=== PATIENT | male | born 1965 | race Caucasian/White ===

== ENCOUNTER 2021-05-22 14:25 | Inpatient (IN) | payer SELFPAY ==
[2021-05-22] VITALS (49 sets, daily range): BP systolic 101–141; BP diastolic 58–86; PULSE 58–90; RESP 12–29; TEMP 36.6–36.7; O2SAT 88–99; BMI 29.8
--- NOTE | 2021-05-22 14:32 | XACV_ITS ---
Gender: Male : 1965 Exam Priority: Routine Procedure(s): Procedure Description: Diagnostic procedure Procedure Description: Coronary angiogram Procedure Description: Percutaneous coronary intervention Diagnostic Cath Status: Emergency Diagnostic Findings * Left Main has no significant disease. * Left Anterior Descending has minor luminal irregularities minor luminal irregularities. * Circumflex has no significant disease. * Mid Right Coronary Artery: subtotal thrombotic occlusion, JOELLEN: 2 flow. This is the culprit vessel for the acute ST elevation ND.. * Indication: 56-year-old man who presented with acute inferior wall ST elevation ND. Taken emergently to the Motor Vehicle Technician for coronary angiogram. * Ramus artery is a medium-sized vessel and has proximal 30 to 40% stenosis. * Coronary angiography shows right dominance. PCI Status: Emergency PCI Indication: STEMI - Immediate PCI for STEMI Interventional Findings * Procedure detail: We engaged RCA with JR4 guide catheter. IV heparin was used to maintain an ACT above 250 seconds. 0.014 run-through guidewire was used to cross the thrombotic lesion and was put in distal vessel. V output 3.5 x 22 mm resolute Shari drug-eluting stent in the mid RCA. At this time final angiogram was performed that showed excellent stent expansion, no residual stenosis and JOELLEN-3 flow. Patient left the Motor Vehicle Technician in a stable condition. * Mid Right Coronary Artery: 99% stenosis treated with a MDT R SHARI 3.5X22 BRADEN. 0% residual stenosis, JOELLEN: 3 flow. Conclusions 1. There is subtotal thrombotic occlusion of mid RCA that was the culprit vessel for inferior ST elevation ND.. 2. Mid Right Coronary Artery was treated with a Drug Eluting Stent. Recommendations * Transfer to ICU. * Aspirin and Plavix for at least 1 year. * High intensity statin therapy. * Beta-wade therapy. * Outpatient cardiology follow-up in 4 weeks. Interventional RX Recommendation: PCI w/o planned CABG Diagnostic RX Recommendation: PCI w/o planned CABG Anticoagulation: Heparin Pressures Phase:Rest AO : 173 / 86 ( 108 ) @ 12:47:00 PM 125 / 101 ( 114 ) @ 12:48:00 PM 109 / 87 ( 99 ) @ 12:54:00 PM 116 / 84 ( 101 ) @ 1:00:00 PM Clinical Evaluation EBL: 5mL-10mL Procedural Details Procedure Consent Obtained. Pre-Procedure Time Out. Identified patient by full name and date of as verbalized by the patient/guarantor. Does the consent match the physician's order: N/A Emergent. Accurate & Complete Informed Consent: N/A Emergent. Inpatient/Outpatient History & Physical on Chart: N/A Emergent. If H&P is completed, is and addenduem needed: N/A Emergent; If yes, is the addendum complete: N/A Emergent. Visualize and Verify Site with Patient/Guarantor: N/A. Relevant Radiology Images available: N/A Emergent. Pre-op teaching completed and patient verbalized understanding. The risks, benefits, and alternatives of sedation and/or procedure were discussed by physician. The patient agrees to continue. Procedure started. [facility] Clinical Fraility Score: 3: Managing Well. Motor Vehicle Technician Indications: ACS <= 24 hours. Chest Pain Symptom Assessment: Typical Angina Symptoms. Correct patient, site and procedure confirmed by cath team. Current diagnosis: STEMI. PERRLA. Strong, equal hand industrial maintenance manager bilaterally. Lungs clear x 5 lobes. Physician arrived. right groin was prepped with chloroprep then draped in the usual sterile fashion. right radial was prepped with chloroprep then draped in the usual sterile fashion. Oxygen started at 2liters/min via nasal canula. Physician scrubbed in. Immediate Pre-Procedure Time Out. Correct Patient: Yes; Correct Procedure: Yes; Correct Site: Yes; Correct Patient Position: Yes; Correct Supplies: Yes; Dried Flammable Prep: Yes; Blood Products Available: N/A. Lidocaine 1% infiltrated to the right radial. Arterial access obtained. Anne Naik RN nurse predictive maintenance specialist during procedure. 6 armenian JR 4 guide catheter was inserted over the wire. Runthrough guidewire was advanced through the guide catheter to lesion in the mid RCA. AP pads applied to pt chest. Stent inserted to lesion in the mid LAD. Inflation Number : 1 Tena Duran SHARI 3.5X22 BRADEN -Lot Number# [id number] Exp 09/13/2022_ was prepped and advanced across the Mid RCA1. The stent was deployed at 14 YUE for 0:25 seconds. Stent balloon out over wire. Results checked. ACT drawn. Results 227 seconds. Therapeutic limits - pre-heparin administration 90-150 seconds and monitoring heparin during a vascular procedure >250 seconds. Wire out. Results checked. Results checked. A 5 armenian TIG catheter in over wire. Multiple views taken of left coronary artery. Catheter removed over the exchange wire. A TR Band was successful obtaining hemostatsis at the Right Radial artery insertion site. PERRLA. Strong, equal hand industrial maintenance manager bilaterally. No VTE prophylaxis required. Medication's Wasted: Lidocaine 1% = 18 mL. Medication's Wasted: Nitro = 49.5 mg. Medication's Wasted: Heparin = 4000 u. Total IV fluids: 100 mL. PCI Indication: STEMI. Post-op diagnosis: STEMI, Occlusion of Mid RCA. Complications: none. Estimated blood loss: 5mL-10mL. Procedure completed. Patient transferred by wheelchair to ICU. Vital chart was stopped. Access Site Site: Right Radial artery Sheath Size: 6 Fr Hemostasis Method: TR Band Hemostasis Success: Successful Procedure Medications Start: 2:45 PM Stop: 2:45 PM Medication: Versed Amount: 1 mg Route: I.V. Start: 2:45 PM Stop: 2:45 PM Medication: Fentanyl Amount: 50 mcg Start: 2:46 PM Stop: 2:46 PM Medication: Nitrogylcerin Amount: 100 mcg Start: 2:47 PM Stop: 2:47 PM Medication: Versed Amount: 1 mg Route: I.V. Start: 2:47 PM Stop: 2:47 PM Medication: Heparin Amount: 5000 units Route: I.V. Start: 2:51 PM Stop: 2:51 PM Medication: Fentanyl Amount: 50 mcg Route: I.V. Start: 2:56 PM Stop: 2:56 PM Medication: Nitrogylcerin Amount: 200 mcg Route: I.C. Start: 2:59 PM Stop: 2:59 PM Medication: Cardene Amount: 250 mcg Route: I.C. Start: 3:00 PM Stop: 3:00 PM Medication: Aggrastat 12.5 mg/250 mL Amount: 42 ml Route: I.V. bolus Start: 3:00 PM Stop: 3:00 PM Medication: Aggrastat 12.5 mg/250 mL Amount: 15.1 ml/hr Route: I.V. drip Start: 3:02 PM Stop: 3:02 PM Medication: Heparin Amount: 2000 units Route: I.V. Start: 3:04 PM Stop: 3:04 PM Medication: Nitrogylcerin Amount: 200 mcg Route: I.A. Start: 3:04 PM Stop: 3:04 PM Medication: Cardene Amount: 200 mcg Route: I.C. Start: 3:06 PM Stop: 3:06 PM Medication: Fentanyl Amount: 50 mcg Route: I.V. I, the attending physician, have reviewed and verified all procedure medications. Yes, all medications given per verbal order Report Signatures Finalized by Hermelindo Zhao MD on 06/06/2021 09:27 AM
[2021-05-22] MEDS: heparin 5,000 unit/mL INJ 1 mL 4000 UNIT IVP (14:34)
[2021-05-22] MEDS: clopidogrel 300 mg Tablet 600 MG PO (14:34)
--- NOTE | 2021-05-22 14:35 | ECG_ITS ---
[facility] Test Date: 2021-05-22 Pat Name: Matthew Encinas Department: Room: ICU07 Gender: Male Aerial Photograph Interpreter: : 1965 Requested By: Matthew Suárez Order Number: [id number] Mayco MD: Mandi Ortiz M.D. Measurements Intervals [place] Rate: 75 P: 59 FL: 133 QRS: 68 QRSD: 90 T: 74 QT: 377 QTc: 424 Interpretive Statements SINUS RHYTHM WITH SINUS ARRHYTHMIA MARKED ST ELEVATION, CONSIDER INFERIOR INJURY [MARKED ST ELEVATION W/O NORMALLY INFLECTED T-WAVE IN II/aVF] with a lateral extension ST depressions in the high lateral leads, suggesting ischemia ACUTE VT No previous ECG available for comparison Electronically Signed On 05-22-2021 20:05:42 FIELD CONTACT PERSON by Mandi Ortiz M.D. [id number]
--- NOTE | 2021-05-22 14:36 | PM.HP ---
Providers/Chief Complaint Admitting Physician: Hermelindo Zhao MD/ Cardiology Chief Complaint: STEMI History of Present Illness Matthew Encinas is a 56 year old male with no significant past cardiac history presented with 45 minutes to an hour of chest pain symptoms. Chest pain was substernal radiating to both arms. Arms also felt numb. He was diaphoretic with it. EKG performed by EMS showed ST elevation SC of inferior leads. Nursing Agency Manager was activated and was emergently taken to the Nursing Agency Manager which showed acute thrombotic subtotal occlusion of mid RCA which was treated with BRADEN x1. Patient tolerated the procedure well and was transferred to the ICU Review of Systems Narrative: CONSTITUTIONAL: No fever chills weight loss or gain or night sweats. [] HEENT: Normocephalic, atraumatic.[] RESPIRATORY: No cough, sputum, hemoptysis or wheezing.[] CARDIOVASCULAR: Has chest pain, no PND, orthopnea, lower extremity edema, presyncope or syncope. [] GI: no nausea vomiting diarrhea. [] ADULT EDUCATION PROFESSIONAL: No numbness, tingling, weakness or loss of function in any part of the body. [] MUSCULOSKELETAL: No knee or joint pain or rashes. [] Medications/Allergies Home Medications Medication Instructions Recorded Confirmed Last Taken Type pantoprazole 40 mg tablet,delayed 40 mg PO DAILY 08/28/19 08/28/19 Unknown History release Allergies Allergy/AdvReac Type Severity Reaction Status Date / Time prednisone Allergy Severe K+ dropped Verified 08/28/19 12:34 to 2.5. PFSH Acute PFSH: Medical History (Updated 05/23/21 @ 07:56 by Hermelindo Zhao M.D) H/O: GI bleed Social History (Updated 05/23/21 @ 07:55 by Hermelindo Zhao M.D) Smoking and tobacco status: current every day smoker Vitals/I&O/Wt Last Vital Signs Temp 98.0 F 05/22/21 14:27 Pulse 74 05/22/21 14:27 Resp 15 05/22/21 14:27 BP 136/86 05/22/21 14:27 Pulse Ox 99 05/22/21 14:27 Weight last 48 hrs Weight 185 lb Physical Exam Narrative: EXAM NARRATIVE: GENERAL: Patient is alert, awake and oriented x3. [] NECK: No jugular vein distension. [] HEENT: No cyanosis. No icterus. No pallor. [] HEART: Regular S1 and S2. No murmur, rub or gallop. [] LUNGS: Clear to auscultate bilaterally. [] ABDOMEN: Soft, nontender and nondistended. Positive bowel sounds. No guarding, rebound or tenderness. [] CENTRAL NERVOUS SYSTEM: Grossly nonfocal. [] EXTREMITIES: Lower extremities with no edema bilaterally. Pulses palpable in the lower extremities, both dorsalis pedis and posterior tibial. [] Data : 05/23/21 03:43 05/23/21 03:43 A&P Assessment and plan (1) STEMI (ST elevation myocardial infarction): Status: Acute (2) Tobacco abuse: Status: Acute Patient has presented with acute ST elevation SC of inferior wall. Underwent successful revascularization of RCA with BRADEN x1. Transfer to ICU. Aspirin and Plavix for at least 1 year. High intensity statin therapy. We will start metoprolol and lisinopril. Order echocardiogram. Attestations Medical Necessity Statement*: Care expected to cross 2 midnights. Patient had presented with acute ST elevation SC and underwent successful revascularization of RCA with BRADEN x1. Coding Level of Care Code Acute Cash Management Clerk for [facility] Diagnoses STEMI (ST elevation myocardial infarction) I21.3 Tobacco abuse Z72.0
--- NOTE | 2021-05-22 14:49 | ED_ITS ---
HPI - Chest Pain General: Chief Complaint: Chest Pain Stated Complaint: STEMI History of Present Illness: HPI narrative: 56-year-old male presents emergency room complaining of chest pain that began approximately 1 hour prior to arrival. Patient arrived via EMS bed texted a picture of his EKG and prior and had called a STEMI alert on arrival he is still having chest pain he is diaphoretic and weak. Repeat EKG confirms inferior ST elevation [place]. Patient has no known history of coronary artery disease no significant family history, he has no family history of hypertension diabetes or hyperlipidemia. Pain radiates into his neck or arms and he is dyspneic. He denies any episodes of chest pain prior to today's. MD complaint: chest pain and chest heaviness Onset (ago): hour(s) (1) Timing of current episode: constant Prior episodes: No Onset: during rest Pain location: substernal Pain radiation: right arm, left arm and neck Severity: severe Quality: tightness and aching Relieving factors: nothing Exacerbating factors: nothing Associated symptoms: Reports diaphoresis and dyspnea; Deny abdominal pain, fever(s), leg edema, nausea, palpitations, sense of impending doom, syncope or vomiting Treatment prior to arrival: aspirin and oxygen Review of Systems Const: Reports: diaphoresis; Denies: fever(s) ENMT: Denies: throat pain, ear or mastoid pain, nasal discharge or nasal congestion Card: Denies: palpitations or syncope Resp: Reports: dyspnea GI: Denies: abdominal pain, nausea or vomiting : Denies: flank pain, dysuria, urinary frequency or urinary urgency Skin/Breast: Denies: rash or pruritus PFS ED PFSH: Medical History (Updated 05/26/21 @ 09:58 by Matthew Irizarry DO) H/O: GI bleed STEMI (ST elevation myocardial infarction) Social History (Updated 05/23/21 @ 07:55 by Hermelindo Zhao M.D) Smoking and tobacco status: current every day smoker Physical Exam Const: COMMON NORMALS: no acute distress GENERAL APPEARANCE: cooperative and comfortable ORIENTATION/CONSCIOUSNESS: Yes awake, Yes oriented to person, Yes oriented to place and Yes oriented to time HENMT: COMMON NORMALS: normocephalic, atraumatic and hearing grossly normal bilaterally HEAD & SCALP: normocephalic and atraumatic Neck/C-Spine: COMMON NORMALS: no JVD Resp: COMMON NORMALS: normal respiratory effort, No retractions, No use of accessory muscles and clear to auscultation bilaterally AUSCULTATION: clear to auscultation bilaterally Cardio: COMMON NORMALS: no JVD, regular rate, regular rhythm and No murmurs present (Cardio) RATE: regular rate RHYTHM: regular rhythm GI: COMMON NORMALS: Soft to palpation and No hepatosplenomegaly present AUSCULTATION: Yes normoactive bowel sounds PALPATION: Yes Soft to palpation, No Tenderness to palpation present (GI), No Guarding due to palpation present (GI) and Yes No hepatosplenomegaly present Extremity: COMMON NORMALS: normal to inspection, capillary refill normal, no clubbing, cyanosis or edema, no calf tenderness and no pedal edema Neuro: SENSORIUM/ORIENTATION: Yes oriented to person, Yes oriented to place a nd Yes oriented to time Skin: COMMON NORMALS: no rashes or lesions noted NARRATIVE SKIN EXAM: Diaphoresis noted GENERAL SKIN EXAM: no rashes or lesions noted Course Vital Signs: Vital signs: Vital Signs Temperature 97.8 F 05/24/21 10:11 Pulse Rate 75 05/24/21 10:11 Respiratory Rate 18 05/24/21 10:11 Blood Pressure 115/67 05/24/21 10:11 Pulse Oximetry 94 05/24/21 09:14 MDM - Chest Pain MDM Narrative: Medical decision making narrative: EKG shows acute ST elevation [place]. Discussed with Dr. Victoria who was present at the time the patient arrives. He concurs patient given Plavix and heparin is already had aspirin will take directly to Deputy Sheriff K9 Handler. Lab Data: Labs: Lab Results 05/22/21 05/22/21 05/22/21 14:30 14:30 14:30 WBC 12.7 10^3/uL H 10 ^3/uL (4.0-10.0) RBC 4.60 10^6/uL 10^6 /uL (4.1-5.3) Hgb 15.2 g/dL g/dL (11.7-16.6) Hct 43.3 % % (42.0-52.0) MCV 94.1 fl H fl (80-94) MCH 33.0 pg pg (28.0-34.0) MCHC 35.1 g/dL g/dL (30.0-36.0) RDW 13.0 % % (12.1-15.1) Plt Count 360 10^3/cmm 10^3 /cmm (130-400) MPV 10.3 fL fL (7.4-10.4) Neut % (Auto) 64.4 % % Lymph % (Auto) 23.8 % % Haakon % (Auto) 9.7 % % Eos % (Auto) 0.9 % % Baso % (Auto) 0.7 % % Neut # (Auto) 8.19 10^3/uL H 10 ^3/uL (1.8-7.7) Lymph # (Auto) 3.0 10^3/uL 10^3/ uL (0.8-4.8) Haakon # (Auto) 1.2 10^3/uL H 10^ 3/uL (0.2-0.9) Eos # (Auto) 0.1 10^3/uL 10^3/ uL (0.0-0.8) Baso # (Auto) 0.1 10^3/uL 10^3/ uL (0.0-0.1) Nucleated RBC % (a uto) 0 % % Nucleated RBCs # 0.0 /100WBC /100W BC PT 14.30 SECONDS SEC ONDS (12.1-14.9) INR 1.08 (0.8-1.2) APTT 54.0 SECONDS H SE CONDS (23.9-36.7) D-Dimer <= 0.27 ug/mIFEU ug/mIFEU (0-0.59) Sodium 138 mmol/L mmol/L (136-145) Potassium 4.1 mmol/L mmol/L (3.5-5.1) Chloride 104 mmol/L mmol/L (98-107) Carbon Dioxide 19 mmol/L L mmol/ L (22-29) Anion Gap 19.1 H (5-19) BUN 13 mg/dL mg/dL (6-20) Creatinine 1.2 mg/dL mg/dL (0.7-1.2) GFR Calculation 62.9 mL/min L mL/ min (90-130) Glucose 114 mg/dL mg/dL (65-115) Calculated Osmolal ity 287 mOsm/kg mOsm/ kg (285-295) Calcium 8.6 mg/dL mg/dL (8.5-10.5) Total Bilirubin 0.2 mg/dL mg/dL (0.15-1.2) AST 18 U/L U/L (0-40) ALT 25 U/L U/L (0-41) Alkaline Phosphata se 68 IU/L IU/L (40-130) Creatine Kinase 71 U/L U/L (39-308) Troponin T Baselin e NT-Pro-B Natriuret Pep 75 pg/mL pg/mL (0-125) Total Protein 6.2 g/dL L g/dL (6.6-8.7) Albumin 4.3 g/dL g/dL (3.5-5.2) Globulin 1.9 g/dL g/dL (1.3-4.6) 05/22/21 14:30 WBC RBC Hgb Hct MCV MCH MCHC RDW Plt Count MPV Neut % (Auto) Lymph % (Auto) Haakon % (Auto) Eos % (Auto) Baso % (Auto) Neut # (Auto) Lymph # (Auto) Haakon # (Auto) Eos # (Auto) Baso # (Auto) Nucleated RBC % (a uto) Nucleated RBCs # PT INR APTT D-Dimer Sodium Potassium Chloride Carbon Dioxide Anion Gap BUN Creatinine GFR Calculation Glucose Calculated Osmolal ity Calcium Total Bilirubin AST ALT Alkaline Phosphata se Creatine Kinase Troponin T Baselin e 6 ng/L ng/L (0-15) NT-Pro-B Natriuret Pep Total Protein Albumin Globulin Discharge Plan Discharge Patient Disposition: Admitted As Inpatient Admit Provider: Hermelindo Zhao Clinical Impression: ST elevation myocardial infarction (STEMI) Condition: Stable Discharge Diet: Cardiac Discharge Activity: Increase activity as tolerated Coding Level of Care Code ED Ceiling Insulation Blower for Chg Fwd Exam Comprehensive
[2021-05-22 14:56] LABS: Basophils # 0.1 10^3/uL (0.0-0.1); Basophils % 0.7 %; Eosinophils # 0.1 10^3/uL (0.0-0.8); Eosinophils % 0.9 %; Hematocrit 43.3 % (42.0-52.0); Hemoglobin 15.2 g/dL (11.7-16.6); Lymphocytes % 23.8 %; Mean Corpuscular HGB Conc 35.1 g/dL (30.0-36.0); Mean Corpuscular Volume 94.1 fl (80-94); Mean Platelet Volume 10.3 fL (7.4-10.4); Monocytes # 1.2 10^3/uL (0.2-0.9); Monocytes % 9.7 %; Neutrophils # 8.19 10^3/uL (1.8-7.7); Neutrophils % 64.4 %; Nucleated Red Blood Cells % 0 %; Platelet Count 360 10^3/cmm (130-400); White Blood Count 12.7 10^3/uL (4.0-10.0)
[2021-05-22 15:09] LABS: D Dimer <= 0.27 ug/mIFEU (0-0.59)
[2021-05-22 15:18] LABS: INR 1.08 (0.8-1.2)
[2021-05-22 15:32] LABS: Troponin(5th) Baseline 6 ng/L (0-15)
[2021-05-22 15:42] LABS: Alanine Aminotransferase 25 U/L (0-41); Albumin Level 4.3 g/dL (3.5-5.2); Alkaline Phosphatase 68 IU/L (40-130); Anion Gap 19.1 (5-19); Aspartate Amino Transferase 18 U/L (0-40); Blood Urea Nitrogen 13 mg/dL (6-20); Calcium 8.6 mg/dL (8.5-10.5); Carbon Dioxide 19 mmol/L (22-29); Chloride 104 mmol/L (98-107); Creatine Phosphokinase 71 U/L (39-308); Globulin 1.9 g/dL (1.3-4.6); Glomerular Filtration Rate 62.9 mL/min (90-130); Glucose 114 mg/dL (65-115); NT Pro B Type Natriuretic Pept 75 pg/mL (0-125); Osmolality Calculated 287 mOsm/kg (285-295); Potassium 4.1 mmol/L (3.5-5.1); Sodium 138 mmol/L (136-145); Total Bilirubin 0.2 mg/dL (0.15-1.2); Total Protein 6.2 g/dL (6.6-8.7)
--- NOTE | 2021-05-22 16:35 | ECG_ITS ---
[facility] Test Date: 2021-05-22 Pat Name: Matthew Encinas Department: Room: ICU07 Gender: Male Access Spec: : 1965 Requested By: Matthew Suárez Order Number: [id number] Mayco MD: Mandi Ortiz M.D. Measurements Intervals [place] Rate: 74 P: [place]: QRS: 77 QRSD: 105 T: 78 QT: 409 QTc: 455 Interpretive Statements ATRIAL FIBRILLATION ST ELEVATION, CONSIDER INFERIOR INJURY [MARKED ST ELEVATION W/O NORMALLY INFLECTED T-WAVE IN II/aVF] ACUTE ME INTERPRETATION BASED ON A DEFAULT AGE OF 40 YEARS No previous ECG available for comparison Electronically Signed On 05-22-2021 20:11:07 MECHANICAL SYSTEM TECHNICIAN by Mandi Ortiz M.D. [id number]
[2021-05-22] MEDS: lisinopril 5 mg Tablet PO (17:43)
[2021-05-22] MEDS: sodium chloride 0.9% 1,000 ML 100 ML IV (17:44)
--- NOTE | 2021-05-22 18:51 | PC.NURSE ---
Brought to ICU via wheelchair with TR band in place. A&Ox4 with family in waiting room.
--- NOTE | 2021-05-22 18:52 | PC.NURSE ---
Hematoma noted to Right wrist. Dr aware and gave orders to stop anticoagulant.
--- NOTE | 2021-05-22 19:03 | PC.NURSE ---
Hematoma noted to Right wrist, TR Band remains in place. Hematoma marked per 7A nurse, no increase in size since 1799. Dr. Evans aware of hematoma.
[2021-05-22] MEDS: alum-mag-hydroxide-sime 30 mL UDC PO (19:43)
[2021-05-22] MEDS: atorvastatin 40 mg Tablet 80 MG PO (19:43)
[2021-05-22] MEDS: metoprolol tartrate 25 mg Tablet PO (19:43)
--- NOTE | 2021-05-22 20:04 | PC.NURSE ---
No change in hematoma size to right wrist. 1936 -- 2mL air removed from TR band 1949 -- 2mL air removed from TR band
--- NOTE | 2021-05-22 20:07 | PC.NURSE ---
2 mL air removed from right wrist TR band, no bleeding, no change in hematoma size.
--- NOTE | 2021-05-22 20:23 | PC.NURSE ---
3 mL air removed from right wrist TR band. No air remains in TR band. No bleeding, no change in hematoma size.
--- NOTE | 2021-05-22 20:35 | ECG_ITS ---
[facility] Test Date: 2021-05-22 Pat Name: Matthew Encinas Department: Room: ICU07 Gender: Male Facility Sales And Admin: : 1965 Requested By: Matthew Suárez Order Number: [id number] Mayco MD: Hermelindo Zhao M.D. Measurements Intervals [place] Rate: 72 P: 60 GA: 123 QRS: 60 QRSD: 86 T: 22 QT: 361 QTc: 396 Interpretive Statements SINUS RHYTHM Compared to ECG 05/22/2021 16:33:52 Sinus arrhythmia no longer present Myocardial infarct finding no longer present ST (T wave) deviation no longer present Possible ischemia no longer present Electronically Signed On 05-24-2021 17:48:49 INDUSTRIAL PAINTER by Hermelindo Zhao M.D. [id number]
--- NOTE | 2021-05-22 20:55 | PC.NURSE ---
TR band removed, badaid placed over puncture site.
[2021-05-22 21:56] LABS: Troponin 5 6HR 793.8 ng/L (0-15); Troponin 5 6HR Delta 787.8 ng/L (0-12)
[2021-05-23] VITALS (50 sets, daily range): BP systolic 94–149; BP diastolic 56–92; PULSE 59–94; RESP 14–34; TEMP 36.5–38.1; O2SAT 92–97
[2021-05-23] MEDS: sodium chloride 0.9% 1,000 ML 100 ML IV ×2 (03:49→14:25)
[2021-05-23 04:44] LABS: Basophils # 0.1 10^3/uL (0.0-0.1); Basophils % 0.5 %; Eosinophils # 0.1 10^3/uL (0.0-0.8); Eosinophils % 0.7 %; Hematocrit 43.2 % (42.0-52.0); Hemoglobin 14.5 g/dL (11.7-16.6); Lymphocytes # 2.9 10^3/uL (0.8-4.8); Lymphocytes % 19.7 %; Mean Corpuscular HGB Conc 33.6 g/dL (30.0-36.0); Mean Corpuscular Hemoglobin 32.7 pg (28.0-34.0); Mean Corpuscular Volume 97.5 fl (80-94); Mean Platelet Volume 10.7 fL (7.4-10.4); Monocytes # 1.3 10^3/uL (0.2-0.9); Monocytes % 8.9 %; Neutrophils # 10.24 10^3/uL (1.8-7.7); Neutrophils % 69.9 %; Nucleated Red Blood Cells % 0 %; Platelet Count 294 10^3/cmm (130-400); Red Blood Count 4.43 10^6/uL (4.1-5.3); Red Cell Distribution Width 13.2 % (12.1-15.1); White Blood Count 14.7 10^3/uL (4.0-10.0)
[2021-05-23 05:32] LABS: Anion Gap 13.2 (5-19); Blood Urea Nitrogen 12 mg/dL (6-20); Calcium 7.7 mg/dL (8.5-10.5); Carbon Dioxide 23 mmol/L (22-29); Chloride 107 mmol/L (98-107); Glomerular Filtration Rate 69.5 mL/min (90-130); Glucose 92 mg/dL (65-115); Osmolality Calculated 287 mOsm/kg (285-295); Potassium 4.2 mmol/L (3.5-5.1); Sodium 139 mmol/L (136-145)
[2021-05-23] MEDS: clopidogrel 75 mg Tablet PO (08:11)
[2021-05-23] MEDS: aspirin 81 mg EC Tablet PO (08:14)
[2021-05-23] MEDS: metoprolol tartrate 25 mg Tablet PO ×2 (08:14→20:22)
--- NOTE | 2021-05-23 09:10 | P.PN_ITS ---
Subjective Subjective: Interval history: Patient is doing well. No complains of chest pain. ST elevations have resolved Vitals/I&O/Wt Last Vital Signs Temp 97.7 F 05/23/21 07:00 Pulse 73 05/23/21 09:00 Resp 23 H 05/23/21 09:00 BP 127/81 05/23/21 09:00 Pulse Ox 93 05/23/21 09:00 05/22/21 05/23/21 05/23/21 22:59 06:59 14:59 Intake Total 200 / 200 1300 / 1500 Output Total 650 / 650 825 / 1475 125 / 125 Balance -450 / -450 475 / 25 -125 / -125 Weight last 48 hrs Weight 185 lb Physical Exam Narrative: EXAM NARRATIVE: GENERAL: Patient is alert, awake and oriented x3. [] NECK: No jugular vein distension. [] HEENT: No cyanosis. No icterus. No pallor. [] HEART: Regular S1 and S2. No murmur, rub or gallop. [] LUNGS: Clear to auscultate bilaterally. [] ABDOMEN: Soft, nontender and nondistended. Positive bowel sounds. No guarding, rebound or tenderness. [] CENTRAL NERVOUS SYSTEM: Grossly nonfocal. [] EXTREMITIES: Lower extremities with no edema bilaterally. Pulses palpable in the lower extremities, both dorsalis pedis and posterior tibial. [] Data : 05/23/21 03:43 05/23/21 03:43 A&P Assessment and plan (1) STEMI (ST elevation myocardial infarction): Status: Acute (2) Tobacco abuse: Status: Acute Patient has presented with acute ST elevation SD of inferior wall. Underwent successful revascularization of RCA with BRADEN x1. Now is stable. We will transfer out to CSU Aspirin and Plavix for at least 1 year. High intensity statin therapy. Metoprolol and lisinopril added ECHO is pending. Will follow up If patient stays stable overnight, will discharge home tomorrow Attestations Medical Necessity Statement*: Care expected to cross 2 midnights. Patient had presented with STEMI and underwent successful revascularization with BRADEN x 1 Coding Level of Care Code Acute Circular Ripsaw Operator for [facility] Diagnoses STEMI (ST elevation myocardial infarction) I21.3 Tobacco abuse Z72.0
[2021-05-23] MEDS: lisinopril 2.5 mg Tablet PO (09:25)
--- NOTE | 2021-05-23 15:25 | PC.NURSE ---
Transferred patient to CSU bed 104. Report given to terrell BATEMAN, patient handed off to Linda BATEMAN. Transfer was uneventful. Belongings included clothes, cell phone, and phone pull worker.
--- NOTE | 2021-05-23 17:14 | USCV_ITS ---
Matthew Encinas Age: 56 Gender: M : 1965 Exam Date: 05/23/2021 10:31 Ordering Phys: Technologist: VELASQUEZ Exam Location: [facility] – [place] Indication: POST STEMI BP: 123 / 73 HR: 67 Rhythm: Sinus Technical Quality: Adequate MEASUREMENTS (Male / Female) Normal Values 2D ECHO LV Diastolic Diameter PLAX 3.7 cm 4.2 - 5.9 / 3.9 - 5.3 cm LV Systolic Diameter PLAX 2.5 cm IVS Diastolic Thickness 1.2 cm 0.6 - 1.0 / 0.6 - 0.9 cm IVS Systolic Thickness 2.0 cm LVPW Diastolic Thickness 1.3 cm 0.6 - 1.0 / 0.6 - 0.9 cm LVPW Systolic Thickness 1.5 cm RV Chamber Size 2.9 cm LVOT Diameter 2.0 cm LV Ejection Fraction 2D Teich 63.1 % LV Ejection Fraction MOD 2C 63.3 % LV Ejection Fraction 2C AL 63.3 % LA Diameter 3.4 cm LA Width 3.1 cm LA Height 4.6 cm RA Width 2.6 cm RA Height 4.1 cm M-MODE Aortic Annulus Diameter 2.7 cm LA Ao Ratio MM 1.3 MV E Point Septal Separation 0.4 cm DOPPLER AV Peak Velocity 76.0 cm/s LVOT Peak Velocity 67.0 cm/s AV Area Cont Eq vti 3.0 cm squared AV Area Cont Eq pk 2.8 cm squared MV Area PHT 4.2 cm squared Mitral E to A Ratio 1.1 MV E' Velocity 45.5 cm/s Mitral E to MV E' Ratio 7.6 Mitral E to LV E' Lateral Ratio 7.1 Mitral E to LV E' Septal Ratio 8.3 TR Peak Velocity 235.3 cm/s TR Peak Gradient 22.2 mmHg TV Peak E Velocity 66.0 cm/s Right Atrial Pressure 3.0 mmHg Pulmonary Artery Systolic Pressu 25.2 mmHg PV Peak Velocity 65.0 cm/s RV Acceleration Time 0.1 s RV Ejection Time 0.3 s RV AcT/ET 0.4 FINDINGS Left Ventricle Normal left ventricular size. LV systolic function is normal with EF of 55-60%. No regional wall motion abnormalities are seen. Normal diastolic filling pattern. Right Ventricle The right ventricle is normal in size and function. Right Atrium The right atrium is normal in size. Left Atrium The left atrium is normal in size. Mitral Valve Mitral valve is thickened without significant stenosis or prolapse. There is mild mitral regurgitation. Aortic Valve Structurally normal aortic valve without significant sclerosis or stenosis. There is no aortic regurgitation. Tricuspid Valve Structurally normal tricuspid valve without significant stenosis or regurgitation. Insufficient TR jet to calculate RVSP. Pulmonic Valve Structurally normal pulmonic valve without significant stenosis. There is no pulmonic regurgitation. Pericardium Normal pericardium without effusion. Aorta Normal ascending aorta dimension. CONCLUSIONS Technically limited quality echocardiogram because of poor ultrasonic windows. LV systolic function is normal with EF of 55 to 60%. Normal diastolic function. Mild mitral regurgitation. No comparison studies are available. Hermelindo Zhao MD (Electronically Signed) Final Date: 23 May 2021 12:51 S
--- NOTE | 2021-05-23 18:09 | PC.NURSE ---
received from icu into room 104 at 1525.report received.pt is alert and awake and oriented x 4.denies pain at present.sr on monitor.maew.right wrist (radial cath site) has drsg dry and intact.bruising noted proximal to puncture site.bruising is soft to touch.palpable radial pulse noted..and right hand is warm to touch and with brisk capillary refill.oriented to room environment.instructed to notify staff for any bleeding,pain,numbness or for any concerns or needs at all.pt verb understanding of instructions.
[2021-05-23] MEDS: atorvastatin 40 mg Tablet 80 MG PO (20:22)
--- NOTE | 2021-05-23 22:16 | PC.NURSE ---
Patient denies having any pain at this time. Iv on left ac was painful to patient so this RN removed as patient has another in the right. Will continue to monitor.
[2021-05-24] VITALS (9 sets, daily range): BP systolic 113–125; BP diastolic 56–74; PULSE 61–81; RESP 16–24; TEMP 36.6–37.1; O2SAT 94–96
--- NOTE | 2021-05-24 02:06 | PC.NURSE ---
Patient sleeping well. Respirations equal. No distress noted. Will continue to monitor.
[2021-05-24 03:02] LABS: Basophils # 0.1 10^3/uL (0.0-0.1); Basophils % 0.5 %; Eosinophils # 0.1 10^3/uL (0.0-0.8); Eosinophils % 1.2 %; Hematocrit 42.5 % (42.0-52.0); Hemoglobin 14.1 g/dL (11.7-16.6); Lymphocytes # 2.8 10^3/uL (0.8-4.8); Mean Corpuscular HGB Conc 33.2 g/dL (30.0-36.0); Mean Corpuscular Hemoglobin 32.5 pg (28.0-34.0); Mean Corpuscular Volume 97.9 fl (80-94); Mean Platelet Volume 10.7 fL (7.4-10.4); Monocytes # 1.2 10^3/uL (0.2-0.9); Monocytes % 9.6 %; Neutrophils # 7.93 10^3/uL (1.8-7.7); Neutrophils % 65.5 %; Nucleated Red Blood Cells % 0 %; Platelet Count 263 10^3/cmm (130-400); Red Blood Count 4.34 10^6/uL (4.1-5.3); Red Cell Distribution Width 13.2 % (12.1-15.1); White Blood Count 12.1 10^3/uL (4.0-10.0)
[2021-05-24 03:35] LABS: Anion Gap 11.1 (5-19); Blood Urea Nitrogen 12 mg/dL (6-20); Calcium 8.1 mg/dL (8.5-10.5); Carbon Dioxide 25 mmol/L (22-29); Chloride 106 mmol/L (98-107); Glomerular Filtration Rate 62.9 mL/min (90-130); Glucose 90 mg/dL (65-115); Osmolality Calculated 285 mOsm/kg (285-295); Potassium 4.1 mmol/L (3.5-5.1); Sodium 138 mmol/L (136-145)
--- NOTE | 2021-05-24 06:40 | PC.NURSE ---
Frequent safety and comfort rounds continue. Orders and/or nursing care completed as indicated. Patient monitored for response to intervention and treatment(s). Education provided includes when to notify nursing staff of chest pain. Patient and/or fundraising sale representative verbalizes understanding. Will continue to monitor.
--- NOTE | 2021-05-24 07:08 | P.DS_ITS ---
Discharge Providers Date of Admission: 05/22/21 15:28 Date of Discharge: May 24, 2021 Attending Provider at Admission: Hermelindo Zhao M.D Attending Provider at Discharge: Hermelindo Zhao M.D Diagnoses at Discharge Discharge Diagnosis (1) STEMI (ST elevation myocardial infarction): (2) Tobacco abuse: Status: Acute Reason for Visit Reason for Visit: STEMI Brief History: 56 year old male with no significant past cardiac history presented with 45 minutes to an hour of chest pain symptoms. Chest pain was substernal radiating to both arms. Arms also felt numb. He was diaphoretic with it. EKG performed by EMS showed ST elevation FL of inferior leads. Hospital Course Hospital Course 56 year old male with no significant past cardiac history presented with 45 minutes to an hour of chest pain symptoms. Chest pain was substernal radiating to both arms. Arms also felt numb. He was diaphoretic with it. EKG performed by EMS showed ST elevation FL of inferior leads. 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 Patient tolerated the procedure well his echocardiogram showed preserved LV systolic function. He did well over the next day without any further chest pain and was discharged in a stable condition Physical Exam Narrative: EXAM NARRATIVE: GENERAL: Patient is alert, awake and oriented x3. [] NECK: No jugular vein distension. [] HEENT: No cyanosis. No icterus. No pallor. [] HEART: Regular S1 and S2. No murmur, rub or gallop. [] LUNGS: Clear to auscultate bilaterally. [] ABDOMEN: Soft, nontender and nondistended. Positive bowel sounds. No guarding, rebound or tenderness. [] CENTRAL NERVOUS SYSTEM: Grossly nonfocal. [] EXTREMITIES: Lower extremities with no edema bilaterally. Pulses palpable in the lower extremities, both dorsalis pedis and posterior tibial. [] Discharge Data Data Completed and Pending: Completed Studies During Hospitalization Category Date Time Status CV. echo complete * [id number] Routine Ultrasound 05/23/21 17:14 Completed Pending at discharge Category Date Time Status BOX SORTER request for service Stat Exams 05/22/21 14:32 Taken Basic Metabolic P ger AM LABS Lab 05/25/21 04:00 Ordered Complete Blood Co unt w/Auto AM LABS Lab 05/25/21 04:00 Ordered Labs from last 24 hours 05/24/21 05/24/21 02:13 02:13 WBC 12.1 H RBC 4.34 Hgb 14.1 Hct 42.5 MCV 97.9 H MCH 32.5 MCHC 33.2 RDW 13.2 Plt Count 263 MPV 10.7 H Neut % (Auto) 65.5 Lymph % (Auto) 23.0 Hemphill % (Auto) 9.6 Eos % (Auto) 1.2 Baso % (Auto) 0.5 Neut # (Auto) 7.93 H Lymph # (Auto) 2.8 Hemphill # (Auto) 1.2 H Eos # (Auto) 0.1 Baso # (Auto) 0.1 Nucleated RBC % (a uto) 0 Nucleated RBCs # 0.0 Sodium 138 Potassium 4.1 Chloride 106 Carbon Dioxide 25 Anion Gap 11.1 BUN 12 Creatinine 1.2 GFR Calculation 62.9 L Glucose 90 Calculated Osmolal ity 285 Calcium 8.1 L Vitals: Last Vital Signs Temp 97.9 F 05/24/21 05:56 Pulse 74 05/24/21 05:56 Resp 22 H 05/24/21 05:56 BP 125/74 05/24/21 03:15 Pulse Ox 96 05/24/21 05:56 Discharge Plan Discharge Patient Disposition: Home Condition: Stable Prescriptions: New atorvastatin 40 mg Tablet 80 mg PO BEDTIME Qty: 90 RF: 3 clopidogrel 75 mg Tablet 75 mg PO DAILY Qty: 90 RF: 3 aspirin 81 mg Tablet,Delayed Release (Dr/Ec) 81 mg PO DAILY Qty: 90 RF: 3 nitroglycerin 0.4 mg Tablet, Sublingual 0.4 mg sublingual Q5M PRN (Reason: Chest Pain) Qty: 30 RF: 0 lisinopril 2.5 mg Tablet 2.5 mg PO DAILY Qty: 90 RF: 3 metoprolol tartrate 25 mg Tablet 25 mg PO BID@0900,2100 Qty: 120 RF: 3 Continued Collagen Powder See Rx Instructions .ROUTE .COMPLEX RF: 0 Super Tonic See Rx Instructions .ROUTE .COMPLEX RF: 0 Changed acetaminophen 500 mg Tablet 500 mg PO PRN PRN (Reason: Pain) Qty: 0 RF: 0 Discharge Orders: Discharge Order (Routine); Ordered 05/24/21 Ordered By: Hermelindo Zhao Referrals: Hermelindo Zhao M.D [Physician] - 06/26/21 3:30 pm (You have a follow up with Dr. Zhao on Saturday, 06/26 at 3:30pm. If you have any questions please call ) Lucía Vo FNP [Nurse Practitioner] - 06/01/21 10:00 am (You have a follow up with Lucía Vo on 06/01 at 10:00am.) Roel Lemons DO [Staff Physician] - 05/31/21 9:00 am (You have a new patient appointment with .) Discharge Diet: Cardiac Discharge Activity: Increase activity as tolerated Patient Instructions: Aspirin (By mouth), Nitroglycerin, Rapid Release (By mouth), Atorvastatin (By mouth), Clopidogrel (By mouth), Coronary Angioplasty (DC), Opioid Safety, Post Angiogram Home Care Instructions Activity Restrictions/Additional Instructions: Please do not lift more than 5 pounds of weight for the next 5 days Discharge Attestations Time Spent in Discharge Care*: greater than 30 min Quality Metrics Clinical Quality Measures During this hospital stay, did patient experience: None Coding Level of Care Code Acute Chg FW DC note Diagnoses STEMI (ST elevation myocardial infarction) I21.3 Tobacco abuse Z72.0
[2021-05-24] MEDS: clopidogrel 75 mg Tablet PO (09:51)
[2021-05-24] MEDS: metoprolol tartrate 25 mg Tablet PO (09:51)
[2021-05-24] MEDS: aspirin 81 mg EC Tablet PO (09:51)
[2021-05-24] MEDS: lisinopril 2.5 mg Tablet PO (09:51)
--- NOTE | 2021-05-24 10:11 | PC.NURSE ---
pt education provided, no questions or concerns. VS stable upon departure.
--- NOTE | 2021-05-29 08:52 | PC.SOCIAL ---
discharge follow up call. pt reports rash that started on , has gotten worse everyday. Denies shortness of breath. Called and got pt in sooner with Dr. Lemons for 12-1@0900. Discussed with pt if he had shortness of breath or chest pain to present to the ED. Pt reports he has been taking Benadryl with relief from itching. Pt verbalizes understanding.
== END 2021-05-24 10:12 | disposition home or self-care (01) | DRG 247 ==
LOC: ER 14:40 → CCL 14:45 → ICU 15:28 → CSU 05-23 15:11
PROVIDERS: Family Medicine; Admitting Provider Internal Medicine; Visit Provider Internal Medicine
PROC: 027034Z Dilation of Coronary Artery, One Artery with Drug-eluting Intraluminal Device, Percutaneous Approach (ICD-10-PCS; principal; 2021-05-22 14:15)
PROC: 027034Z Dilation of Coronary Artery, One Artery with Drug-eluting Intraluminal Device, Percutaneous Approach (ICD-10-PCS; 2021-05-22 14:15)
DX: I21.19 ST elevation (STEMI) myocardial infarction involving other coronary artery of inferior wall (principal); Z87.19 Personal history of other diseases of the digestive system; Z72.0 Tobacco use
CPT/HCPCS: 36415; 80048; 80053; 82550; 83880; 84484; 85025; 85347; 85378; 85610; 85730; 93005; 93306; 93454; 96374; 99285; C1769; C1874; C1887; C1894; C9600; J1644; J2250; J3010; J3246; J3490; J7030; Q9967

== ENCOUNTER → 2021-06-01 10:26 | Outpatient (BNVA) | payer OTHER, SELFPAY | PROVIDERS: PCP Electrodiagnostic Medicine; Visit Provider Nurse Practitioner Family | DX: I25.119 Atherosclerotic heart disease of native coronary artery with unspecified angina pectoris (principal); Z87.891 Personal history of nicotine dependence | CPT/HCPCS: 80048 ==

== ENCOUNTER 2021-06-08 16:29 | Emergency (ER) | payer OTHER, SELFPAY ==
[2021-06-08 16:48] VITALS: BP 139/77; PULSE 76; RESP 18; TEMP 37.1; O2SAT 97; BMI 28.1
--- NOTE | 2021-06-08 17:36 | ECG_ITS ---
[facility] Test Date: 2021-06-08 Pat Name: Matthew Encinas Department: Room: Gender: Male Transportation [employer] Tit[employer]: : 1965 Requested By: Kat Eastman Order Number: [id number] Mayco MD: Hermelindo Zhao M.D. Measurements Intervals [place] Rate: 68 P: 50 WI: 120 QRS: 57 QRSD: 81 T: -43 QT: 369 QTc: 393 Interpretive Statements SINUS RHYTHM MODERATE T-WAVE ABNORMALITY, CONSIDER INFERIOR ISCHEMIA [-0.1+ mV T-WAVE IN II/aVF] Compared to ECG 05/22/2021 21:58:31 T-wave abnormality now present Possible ischemia now present Electronically Signed On 06-10-2021 7:39:42 DRONE OPERATOR by Hermelindo Zhao M.D. [email or web address] [email or web address]/[id number] f
--- NOTE | 2021-06-08 17:36 | XRR_ITS ---
PROCEDURE INFORMATION: Exam: XR Chest Exam date and time: 06/08/2021 5:36 PM Age: 56 years old Clinical indication: Pain; Left-sided; Prior surgery; Surgery date: <1 month; Surgery type: Stent; Patient HX: Cp x yesterday; Additional info: Chest pain TECHNIQUE: Imaging protocol: XR of the chest. Views: 1 view. COMPARISON: No relevant prior studies available. FINDINGS: Lungs: Unremarkable. No consolidation. Pleural spaces: Unremarkable. No pleural effusion. No pneumothorax. Heart/Mediastinum: Unremarkable. No cardiomegaly. Bones/joints: ACDF in the lower cervical spine. XR/XR chest 1V portable [id number] IMPRESSION: No acute findings.
[2021-06-08 17:45] LABS: Basophils # 0.1 10^3/uL (0.0-0.1); Eosinophils # 0.2 10^3/uL (0.0-0.8); Eosinophils % 1.8 %; Hematocrit 47.4 % (42.0-52.0); Hemoglobin 15.8 g/dL (11.7-16.6); Lymphocytes % 19.2 %; Mean Corpuscular HGB Conc 33.3 g/dL (30.0-36.0); Mean Platelet Volume 10.8 fL (7.4-10.4); Monocytes # 0.9 10^3/uL (0.2-0.9); Monocytes % 8.6 %; Neutrophils # 7.26 10^3/uL (1.8-7.7); Neutrophils % 69.1 %; Nucleated Red Blood Cells % 0 %; Platelet Count 331 10^3/cmm (130-400); Red Blood Count 4.79 10^6/uL (4.1-5.3); Red Cell Distribution Width 13.2 % (12.1-15.1); White Blood Count 10.5 10^3/uL (4.0-10.0)
[2021-06-08 17:55] LABS: Troponin(5th) Baseline 12 ng/L (0-15)
[2021-06-08 17:57] LABS: Alanine Aminotransferase 33 U/L (0-41); Albumin Level 4.4 g/dL (3.5-5.2); Alkaline Phosphatase 103 IU/L (40-130); Aspartate Amino Transferase 21 U/L (0-40); Blood Urea Nitrogen 17 mg/dL (6-20); Calcium 8.9 mg/dL (8.5-10.5); Carbon Dioxide 26 mmol/L (22-29); Chloride 105 mmol/L (98-107); Globulin 2.6 g/dL (1.3-4.6); Glomerular Filtration Rate 62.9 mL/min (90-130); Glucose 87 mg/dL (65-115); Osmolality Calculated 291 mOsm/kg (285-295); Sodium 140 mmol/L (136-145); Total Bilirubin 0.3 mg/dL (0.15-1.2)
[2021-06-08 17:58] LABS: Anion Gap 13.7 (5-19); Potassium 4.7 mmol/L (3.5-5.1)
--- NOTE | 2021-06-08 18:11 | W.ED.CHESTPA ---
Documented by User: SEBASTIAN Veloz 06/08/21 20:17 HPI - Chest Pain General: Chief Complaint: Chest Pain Stated Complaint: R SHOULDER & CHEST PAIN, N/V, DIZZY, SOB Time Seen by Provider: 06/08/21 18:01 Source: patient Mode of arrival: ambulatory Limitations: no limitations History of Present Illness: HPI narrative: Patient is a nice 56-year-old male who presents to ED today with a complaint of right-sided chest pain that began around 10 PM yesterday evening as he was getting ready for bed. Patient recently underwent cardiac catheterization and stenting of his RCA for an acute STEMI approximately 2 weeks ago. Patient states he has felt well following the procedure. He states yesterday evening he took a nitro tablet which did seem to help. He states today he had just has not felt well . He complains of some nausea. He describes pain in the right side of his chest as soreness. Complains of some mild shortness of breath. No dizziness, lightheadedness, passing out episodes. MD complaint: chest pain Pertinent past history: coronary artery disease Onset (ago): day(s) (yesterday evening) Onset: during rest Pain location: right chest Pain radiation: none Severity: mild Relieving factors: nothing Exacerbating factors: nothing Associated symptoms: Reports dyspnea and nausea; Deny abdominal pain, fever(s), palpitations, syncope or vomiting Review of Systems Const: Denies: fever(s), chills, body aches, fatigue or malaise Eyes: Denies: change in vision, blurry vision or photophobia Card: Reports: chest pain; Denies: palpitations, irregular heart rhythm, edema, swelling of feet/ankles, lightheadedness, syncope, pre-syncope, dyspnea on exertion or orthopnea Resp: Reports: dyspnea; Denies: productive cough, non-productive cough, hemoptysis or chest congestion GI: Reports: nausea; Denies: abdominal pain, vomiting or diarrhea Musc: Denies: neck pain or back pain Skin/Breast: Denies: rash Neuro: Denies: headache(s) or dizziness PFS ED PFSH: Medical History Atherosclerosis of coronary artery H/O: GI bleed STEMI (ST elevation myocardial infarction) Surgical History S/P right coronary artery (RCA) stent placement Social History Smoking and tobacco status: former smoker Physical Exam Const: COMMON NORMALS: no acute distress, average body habitus, patient oriented x3, no limitations, healthy appearing, alert and well nourished GENERAL APPEARANCE: cooperative ORIENTATION/CONSCIOUSNESS: Yes awake, Yes oriented to person, Yes oriented to place and Yes oriented to time HENMT: COMMON NORMALS: normocephalic and atraumatic HEAD & SCALP: normocephalic and atraumatic Chest: COMMONS NORMALS: normal inspection of the chest OTHER: mild tender to palpation of R upper anterior chest Resp: COMMON NORMALS: normal respiratory effort and clear to auscultation bilaterally AUSCULTATION: clear to auscultation bilaterally Cardio: COMMON NORMALS: regular rate and regular rhythm RATE: regular rate RHYTHM: regular rhythm GI: COMMON NORMALS: Normal to inspection, nondistended, normoactive bowel sounds present, Soft to palpation, No hepatosplenomegaly present and no masses PALPATION: Yes Soft to palpation, Yes Tenderness to palpation present (GI) (mild tenderness to upper abdomen; reports nausea) and Yes No hepatosplenomegaly present Extremity: COMMON NORMALS: normal to inspection, full ROM, no calf tenderness and no pedal edema Neuro: COMMON NORMALS: patient oriented x3 SENSORIUM/ORIENTATION: Yes alert, Yes oriented to person, Yes oriented to place and Yes oriented to time Skin: COMMON NORMALS: no rashes or lesions noted GENERAL SKIN EXAM: no rashes or lesions noted Course Vital Signs: Vital signs: Vital Signs Temperature 98.7 F 06/08/21 16:48 Pulse Rate 76 06/08/21 16:48 Respiratory Rate 18 06/08/21 16:48 Blood Pressure 139/77 06/08/21 16:48 Pulse Oximetry 97 06/08/21 16:48 MDM - Chest Pain MDM Narrative: Medical decision making narrative: Care initiated from [facility] as there are currently no beds available. Initial EKG reviewed by physician. After seeing patient care was turned over to Dr. Bazzi at patient is an YOVANY 2. Lab Data: Labs: Lab Results 06/08/21 06/08/21 06/08/21 17:15 17:15 17:15 WBC 10.5 10^3/uL H 10 ^3/uL (4.0-10.0) RBC 4.79 10^6/uL 10^6 /uL (4.1-5.3) Hgb 15.8 g/dL g/dL (11.7-16.6) Hct 47.4 % % (42.0-52.0) MCV 99.0 fl H fl (80-94) MCH 33.0 pg pg (28.0-34.0) MCHC 33.3 g/dL g/dL (30.0-36.0) RDW 13.2 % % (12.1-15.1) Plt Count 331 10^3/cmm 10^3 /cmm (130-400) MPV 10.8 fL H fL (7.4-10.4) Neut % (Auto) 69.1 % % Lymph % (Auto) 19.2 % % [place] % (Auto) 8.6 % % Eos % (Auto) 1.8 % % Baso % (Auto) 1.0 % % Neut # (Auto) 7.26 10^3/uL 10^3 /uL (1.8-7.7) Lymph # (Auto) 2.0 10^3/uL 10^3/ uL (0.8-4.8) [place] # (Auto) 0.9 10^3/uL 10^3/ uL (0.2-0.9) Eos # (Auto) 0.2 10^3/uL 10^3/ uL (0.0-0.8) Baso # (Auto) 0.1 10^3/uL 10^3/ uL (0.0-0.1) Nucleated RBC % (a uto) 0 % % Nucleated RBCs # 0.0 /100WBC /100W BC Sodium 140 mmol/L mmol/L (136-145) Potassium 4.7 mmol/L mmol/L (3.5-5.1) Chloride 105 mmol/L mmol/L (98-107) Carbon Dioxide 26 mmol/L mmol/L (22-29) Anion Gap 13.7 (5-19) BUN 17 mg/dL mg/dL (6-20) Creatinine 1.2 mg/dL mg/dL (0.7-1.2) GFR Calculation 62.9 mL/min L mL/ min (90-130) Glucose 87 mg/dL mg/dL (65-115) Calculated Osmolal ity 291 mOsm/kg mOsm/ kg (285-295) Calcium 8.9 mg/dL mg/dL (8.5-10.5) Total Bilirubin 0.3 mg/dL mg/dL (0.15-1.2) AST 21 U/L U/L (0-40) ALT 33 U/L U/L (0-41) Alkaline Phosphata se 103 IU/L IU/L (40-130) Troponin T Baselin e 12 ng/L ng/L (0-15) Troponin T 120 Min [place] Troponin T Total Protein 7.0 g/dL g/dL (6.6-8.7) Albumin 4.4 g/dL g/dL (3.5-5.2) Globulin 2.6 g/dL g/dL (1.3-4.6) 06/08/21 19:15 WBC RBC Hgb Hct MCV MCH MCHC RDW Plt Count MPV Neut % (Auto) Lymph % (Auto) [place] % (Auto) Eos % (Auto) Baso % (Auto) Neut # (Auto) Lymph # (Auto) [place] # (Auto) Eos # (Auto) Baso # (Auto) Nucleated RBC % (a uto) Nucleated RBCs # Sodium Potassium Chloride Carbon Dioxide Anion Gap BUN Creatinine GFR Calculation Glucose Calculated Osmolal ity Calcium Total Bilirubin AST ALT Alkaline Phosphata se Troponin T Baselin e Troponin T 120 Min [place] 10.61 ng/L ng/L (0-15) Delta Troponin T -1.39 ABS# L ABS# (0-10) Total Protein Albumin Globulin Imaging Data^: CXR: Radiologist's impression: [address] [address] ReportSigned Patient: Sudhakar Encinas #: [id number]: 1965Acct#:[id number]/Sex: 56 / MADM Date: 06/08/21Loc: ERRoom/Bed:Attending Dr: Ordering Provider/Ordering MD: Kat Eastman Date of Service: 06/08/21 Procedure(s): XR chest 1V portable [id number] Accession Number(s): [id number] Report Number: [id number] PROCEDURE INFORMATION: Exam: XR Chest Exam date and time: 06/08/2021 5:36 PM Age: 56 years old Clinical indication: Pain; Left-sided; Prior surgery; Surgery date: <1 month; Surgery type: Stent; Patient HX: Cp x yesterday; Additional info: Chest pain TECHNIQUE: Imaging protocol: XR of the chest. Views: 1 view. COMPARISON: No relevant prior studies available. FINDINGS: Lungs: Unremarkable. No consolidation. Pleural spaces: Unremarkable. No pleural effusion. No pneumothorax. Heart/Mediastinum: Unremarkable. No cardiomegaly. Bones/joints: ACDF in the lower cervical spine. XR/XR chest 1V portable [id number] IMPRESSION: No acute findings. Dictated By:Matthias Garcia DOSigned By:Matthias Garcia DOSigned Date/Time:06/08/21 1854DD/ 1736 Discharge Plan Discharge Patient Disposition: Home Clinical Impression: Chest pain Qualifiers: Chest pain type: unspecified Qualified Code(s): R07.9 - Chest pain, unspecified Condition: Stable Prescriptions: New ondansetron 4 mg tablet,disintegrating 4 mg PO Q6H PRN (Reason: nausea and vomiting) Qty: 14 RF: 0 No Action Collagen Powder See Rx Instructions .ROUTE .COMPLEX RF: 0 Super Tonic See Rx Instructions .ROUTE .COMPLEX RF: 0 atorvastatin 40 mg Tablet 80 mg PO BEDTIME Qty: 90 RF: 3 clopidogrel 75 mg Tablet 75 mg PO DAILY Qty: 90 RF: 3 aspirin 81 mg Tablet,Delayed Release (Dr/Ec) 81 mg PO DAILY Qty: 90 RF: 3 nitroglycerin 0.4 mg Tablet, Sublingual 0.4 mg sublingual Q5M PRN (Reason: Chest Pain) Qty: 30 RF: 0 lisinopril 2.5 mg Tablet 2.5 mg PO DAILY Qty: 90 RF: 3 metoprolol tartrate 25 mg Tablet 25 mg PO BID@0900,2100 Qty: 120 RF: 3 acetaminophen 500 mg Tablet 500 mg PO PRN PRN (Reason: Pain) Qty: 0 RF: 0 Discharge Orders: Discharge ED (Routine); Ordered 06/08/21 Ordered By: Tayla Bazzi Referrals: Hermelindo Zhao M.D [Physician] - 1-3 days Roel Lemons DO [Primary Care Provider] - Discharge Diet: Advance as tolerated Discharge Activity: Resume usual activity Patient Instructions: Chest Pain (ED) Coding Level of Care Code ED Channel Lip Wetter for Chg Fwd Exam Comprehensive Documented by User: Tayla Bazzi MD 06/08/21 20:13 HPI - Chest Pain General: Chief Complaint: Chest Pain Stated Complaint: R SHOULDER & CHEST PAIN, N/V, DIZZY, SOB Time Seen by Provider: 06/08/21 18:01 PFSH ED PFSH: Medical History Atherosclerosis of coronary artery H/O: GI bleed STEMI (ST elevation myocardial infarction) Surgical History S/P right coronary artery (RCA) stent placement Social History Smoking and tobacco status: former smoker Course Vital Signs: Vital signs: Vital Signs Temperature 98.7 F 06/08/21 16:48 Pulse Rate 76 06/08/21 16:48 Respiratory Rate 18 06/08/21 16:48 Blood Pressure 139/77 06/08/21 16:48 Pulse Oximetry 97 06/08/21 16:48 MDM - Chest Pain MDM Narrative: Medical decision making narrative: Patient presents here with atypical chest pain is right-sided along with some nausea he had recent stent placement initial 2-hour troponin are both negative EKG here showed some T wave inversion which I had 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 Quispe at he is likely due to his previous heart attack he did not feel any acute changes felt like he was stable for discharge he does have follow-up scheduled with Dr. Evans he is to follow-up then and return if worsening he understands agrees to plan. Lab Data: Labs: Lab Results 06/08/21 06/08/21 06/08/21 17:15 17:15 17:15 WBC 10.5 10^3/uL H 10 ^3/uL (4.0-10.0) RBC 4.79 10^6/uL 10^6 /uL (4.1-5.3) Hgb 15.8 g/dL g/dL (11.7-16.6) Hct 47.4 % % (42.0-52.0) MCV 99.0 fl H fl (80-94) MCH 33.0 pg pg (28.0-34.0) MCHC 33.3 g/dL g/dL (30.0-36.0) RDW 13.2 % % (12.1-15.1) Plt Count 331 10^3/cmm 10^3 /cmm (130-400) MPV 10.8 fL H fL (7.4-10.4) Neut % (Auto) 69.1 % % Lymph % (Auto) 19.2 % % [place] % (Auto) 8.6 % % Eos % (Auto) 1.8 % % Baso % (Auto) 1.0 % % Neut # (Auto) 7.26 10^3/uL 10^3 /uL (1.8-7.7) Lymph # (Auto) 2.0 10^3/uL 10^3/ uL (0.8-4.8) [place] # (Auto) 0.9 10^3/uL 10^3/ uL (0.2-0.9) Eos # (Auto) 0.2 10^3/uL 10^3/ uL (0.0-0.8) Baso # (Auto) 0.1 10^3/uL 10^3/ uL (0.0-0.1) Nucleated RBC % (a uto) 0 % % Nucleated RBCs # 0.0 /100WBC /100W BC Sodium 140 mmol/L mmol/L (136-145) Potassium 4.7 mmol/L mmol/L (3.5-5.1) Chloride 105 mmol/L mmol/L (98-107) Carbon Dioxide 26 mmol/L mmol/L (22-29) Anion Gap 13.7 (5-19) BUN 17 mg/dL mg/dL (6-20) Creatinine 1.2 mg/dL mg/dL (0.7-1.2) GFR Calculation 62.9 mL/min L mL/ min (90-130) Glucose 87 mg/dL mg/dL (65-115) Calculated Osmolal ity 291 mOsm/kg mOsm/ kg (285-295) Calcium 8.9 mg/dL mg/dL (8.5-10.5) Total Bilirubin 0.3 mg/dL mg/dL (0.15-1.2) AST 21 U/L U/L (0-40) ALT 33 U/L U/L (0-41) Alkaline Phosphata se 103 IU/L IU/L (40-130) Troponin T Baselin e 12 ng/L ng/L (0-15) Troponin T 120 Min [place] Troponin T Total Protein 7.0 g/dL g/dL (6.6-8.7) Albumin 4.4 g/dL g/dL (3.5-5.2) Globulin 2.6 g/dL g/dL (1.3-4.6) 06/08/21 19:15 WBC RBC Hgb Hct MCV MCH MCHC RDW Plt Count MPV Neut % (Auto) Lymph % (Auto) [place] % (Auto) Eos % (Auto) Baso % (Auto) Neut # (Auto) Lymph # (Auto) [place] # (Auto) Eos # (Auto) Baso # (Auto) Nucleated RBC % (a uto) Nucleated RBCs # Sodium Potassium Chloride Carbon Dioxide Anion Gap BUN Creatinine GFR Calculation Glucose Calculated Osmolal ity Calcium Total Bilirubin AST ALT Alkaline Phosphata se Troponin T Baselin e Troponin T 120 Min [place] 10.61 ng/L ng/L (0-15) Delta Troponin T -1.39 ABS# L ABS# (0-10) Total Protein Albumin Globulin Discharge Plan Discharge Patient Disposition: Home Clinical Impression: Chest pain Qualifiers: Chest pain type: unspecified Qualified Code(s): R07.9 - Chest pain, unspecified Condition: Stable Prescriptions: New ondansetron 4 mg tablet,disintegrating 4 mg PO Q6H PRN (Reason: nausea and vomiting) Qty: 14 RF: 0 No Action Collagen Powder See Rx Instructions .ROUTE .COMPLEX RF: 0 Super Tonic See Rx Instructions .ROUTE .COMPLEX RF: 0 atorvastatin 40 mg Tablet 80 mg PO BEDTIME Qty: 90 RF: 3 clopidogrel 75 mg Tablet 75 mg PO DAILY Qty: 90 RF: 3 aspirin 81 mg Tablet,Delayed Release (Dr/Ec) 81 mg PO DAILY Qty: 90 RF: 3 nitroglycerin 0.4 mg Tablet, Sublingual 0.4 mg sublingual Q5M PRN (Reason: Chest Pain) Qty: 30 RF: 0 lisinopril 2.5 mg Tablet 2.5 mg PO DAILY Qty: 90 RF: 3 metoprolol tartrate 25 mg Tablet 25 mg PO BID@0900,2100 Qty: 120 RF: 3 acetaminophen 500 mg Tablet 500 mg PO PRN PRN (Reason: Pain) Qty: 0 RF: 0 Discharge Orders: Discharge ED (Routine); Ordered 06/08/21 Ordered By: Tayla Bazzi Referrals: Hermelindo Zhao M.D [Physician] - 1-3 days Roel Lemons DO [Primary Care Provider] - Discharge Diet: Advance as tolerated Discharge Activity: Resume usual activity Patient Instructions: Chest Pain (ED) Coding Level of Care Code ED Channel Lip Wetter for Chg Fwd Exam Comprehensive
[2021-06-08] MEDS: ondansetron 2 mg/ML SDV 2 mL 4 MG IVP (19:42)
[2021-06-08 20:06] LABS: Troponin 5 2HR 10.61 ng/L (0-15)
[2021-06-08 20:14] LABS: Troponin 5 2HR Delta -1.39 ABS# (0-10)
[2021-06-08 20:21] VITALS: BP 124/76; PULSE 74; RESP 16; O2SAT 98
== END 2021-06-08 20:22 | disposition home or self-care (01) ==
PROVIDERS: Physician Assistant; Emergency Provider Emergency Medicine; PCP Electrodiagnostic Medicine
DX: R07.9 Chest pain, unspecified (principal); Z79.02 Long term (current) use of antithrombotics/antiplatelets; Z79.82 Long term (current) use of aspirin; I25.2 Old myocardial infarction; Z87.891 Personal history of nicotine dependence
CPT/HCPCS: 71045; 80053; 84484; 85025; 93005; 96374; 99283; J2405

== ENCOUNTER 2021-07-05 03:27 | Emergency (ER) | payer SELFPAY ==
[2021-07-05 03:45] VITALS: BP 120/73; PULSE 78; RESP 18; TEMP 36.7; O2SAT 97; BMI 29.7
--- NOTE | 2021-07-05 03:59 | ED_ITS ---
HPI - Chest Pain General: Chief Complaint: Chest Pain Stated Complaint: LT arm Numb, lt shoulder pain Time Seen by Provider: 07/05/21 03:33 History of Present Illness: HPI narrative: Mr. Encinas is a 56-year-old gentleman with significant past medical history of hypertension, hyperlipidemia, tobaccoism, history of UT just prior to who presents to the emergency department due to chest discomfort. He reports being at his baseline health yesterday, he completed work and went home. While in bed at approximately 10 PM he was awoken by pain in his chest that radiated down the right arm. This feels similar to prior heart attack. He tried nitroglycerin once which did not provide significantly. He went to bed again and subsequently woke up 2 more times prior to coming in with similar type symptoms. He has associated shortness of breath that is persisted, nausea, and generalized malaise. Denies infectious symptoms. Overall the course of symptoms has persisted. He has had similar episodes in the past associated with prior UT. No other significant change to health, exacerbating, or alleviating factors identified. Review of Systems General: Reports: 10 or more systems reviewed and unremarkable except in HPI and below PFSH ED PFSH: Medical History Atherosclerosis of coronary artery H/O: GI bleed ST elevation myocardial infarction (STEMI) STEMI (ST elevation myocardial infarction) Surgical History S/P right coronary artery (RCA) stent placement Social History Smoking and tobacco status: former smoker Alcohol intake: never Physical Exam Narrative: EXAM NARRATIVE: GENERAL/CONSTITUTIONAL - well-appearing. Mildly uncomfortable Eyes - PERRL, no conjunctival injection ENMT - Atraumatic external nose and ears. Moist mucous membranes NECK - supple. trachea midline CARDIOVASCULAR - regular rate and rhythm. No evidence of gross fluid overload RESPIRATORY -clear to auscultation bilaterally. No retractions or accessory muscle use. ABDOMEN/GI - Nontender/Nondistended. MSK - Extremities without obvious deformity or tenderness to palpation SKIN - Warm, Dry. No diaphoresis. NEURO - alert and appropriately oriented. Moves all extremities equally. Course ED course: - Patient was seen and evaluated by me at bedside - Patient placed on cardiac monitors, IV access obtained - Initial evaluation notable for exam as above -Patient already received aspirin. - Labs notable for mild leukocytosis of unclear etiology. Metabolic panel without acute electrolyte derangement. Delta troponin is negative. BNP only trace elevated. - Imaging notable for no acute finding on chest x-ray. - Upon serial reexamination after treatment the patient was improved without recurrence of significant chest pain. -Discussed case with cardiology on-call. Will plan to add isosorbide. - Based on patient history, evaluation, labs, and imaging as interpreted the most likely cause of the patient's condition is chest pain of unclear etiology - The results of ED evaluation were discussed with the patient including prescriptions and/or symptomatic cares (if applicable) including appropriate and responsible use, followup plan, and return precautions. The patient verbalized understanding and felt safe for discharge. - Patient discharged in satisfactory condition. Vital Signs: Vital signs: Vital Signs Temperature 98.1 F 07/05/21 03:45 Pulse Rate 76 07/05/21 06:07 Respiratory Rate 17 07/05/21 06:07 Blood Pressure 103/72 07/05/21 06:07 Pulse Oximetry 95 07/05/21 06:07 MDM - Chest Pain MDM Narrative: Medical decision making narrative: 56-year-old gentleman with history of UT presenting with chest pain. Negative troponins and negative chest x-ray. Discussed with cardiology, plan to start isosorbide and have close follow-up. Satisfactory for discharge. Note: Initially had queued signed out to Dr. Gonsales however work-up completed prior to my departure. He did not take over care nor did he see this patient. Medical Records: Attestation: I reviewed the patient's medical records. Lab Data: Attestation: I reviewed the patient's lab results. Labs: Lab Results 07/05/21 07/05/21 07/05/21 04:25 04:25 04:25 WBC 11.9 10^3/uL H 10 ^3/uL (4.0-10.0) RBC 5.04 10^6/uL 10^6 /uL (4.1-5.3) Hgb 16.6 g/dL g/dL (11.7-16.6) Hct 48.6 % % (42.0-52.0) MCV 96.4 fl H fl (80-94) MCH 32.9 pg pg (28.0-34.0) MCHC 34.2 g/dL g/dL (30.0-36.0) RDW 13.1 % % (12.1-15.1) Plt Count 306 10^3/cmm 10^3 /cmm (130-400) MPV 10.5 fL H fL (7.4-10.4) Neut % (Auto) 74.7 % % Lymph % (Auto) 15.2 % % [place] % (Auto) 7.5 % % Eos % (Auto) 1.5 % % Baso % (Auto) 0.8 % % Neut # (Auto) 8.90 10^3/uL H 10 ^3/uL (1.8-7.7) Lymph # (Auto) 1.8 10^3/uL 10^3/ uL (0.8-4.8) [place] # (Auto) 0.9 10^3/uL 10^3/ uL (0.2-0.9) Eos # (Auto) 0.2 10^3/uL 10^3/ uL (0.0-0.8) Baso # (Auto) 0.1 10^3/uL 10^3/ uL (0.0-0.1) Nucleated RBC % (a uto) 0 % % Nucleated RBCs # 0.0 /100WBC /100W BC Sodium 138 mmol/L mmol/L (136-145) Potassium 4.6 mmol/L mmol/L (3.5-5.1) Chloride 103 mmol/L mmol/L (98-107) Carbon Dioxide 23 mmol/L mmol/L (22-29) Anion Gap 16.6 (5-19) BUN 14 mg/dL mg/dL (6-20) Creatinine 1.0 mg/dL mg/dL (0.7-1.2) GFR Calculation 77.6 mL/min L mL/ min (90-130) Glucose 105 mg/dL mg/dL (65-115) Calculated Osmolal ity 287 mOsm/kg mOsm/ kg (285-295) Calcium 9.0 mg/dL mg/dL (8.5-10.5) Total Bilirubin 0.5 mg/dL mg/dL (0.15-1.2) AST 21 U/L U/L (0-40) ALT 36 U/L U/L (0-41) Alkaline Phosphata se 92 IU/L IU/L (40-130) Troponin T Baselin e 10 ng/L ng/L (0-15) Troponin T 120 Min [place] Troponin T NT-Pro-B Natriuret Pep 187 pg/mL H pg/mL (0-125) Total Protein 7.2 g/dL g/dL (6.6-8.7) Albumin 4.7 g/dL g/dL (3.5-5.2) Globulin 2.5 g/dL g/dL (1.3-4.6) Lipase 29 U/L U/L (13-60) 07/05/21 06:05 WBC RBC Hgb Hct MCV MCH MCHC RDW Plt Count MPV Neut % (Auto) Lymph % (Auto) [place] % (Auto) Eos % (Auto) Baso % (Auto) Neut # (Auto) Lymph # (Auto) [place] # (Auto) Eos # (Auto) Baso # (Auto) Nucleated RBC % (a uto) Nucleated RBCs # Sodium Potassium Chloride Carbon Dioxide Anion Gap BUN Creatinine GFR Calculation Glucose Calculated Osmolal ity Calcium Total Bilirubin AST ALT Alkaline Phosphata se Troponin T Baselin e Troponin T 120 Min [place] 8.73 ng/L ng/L (0-15) Delta Troponin T -1.27 ABS# L ABS# (0-10) NT-Pro-B Natriuret Pep Total Protein Albumin Globulin Lipase EKG Data^: EKG 1: Attestation: I personally reviewed and interpreted this EKG as follows: EKG interpretation date: 07/05/21 EKG interpretation time: 03:58 Interpretation: Twelve-lead EKG shows a regular rhythm at a rate of 77. ME interval 130, QRS duration 88, QTc 389. Normal axis. Interpretation: Sinus rhythm. Nonspecific ST segment abnormalities. Similar to prior. EKG 2: Attestation: I personally reviewed and interpreted this EKG as follows: EKG interpretation date: 07/05/21 EKG interpretation time: 06:00 Interpretation: Twelve-lead EKG shows a regular rhythm at a rate of 68. ME interval 130, QRS duration 85, QTc 395. Normal axis. Interpretation: Sinus rhythm. Discharge Plan Discharge Patient Disposition: Home Clinical Impression: Chest pain Condition: Stable Prescriptions: New isosorbide mononitrate 30 mg tablet extended release 24 hr 15 mg PO DAILY Qty: 30 RF: 0 No Action Collagen Powder See Rx Instructions .ROUTE .COMPLEX RF: 0 Super Tonic See Rx Instructions .ROUTE .COMPLEX RF: 0 atorvastatin 40 mg Tablet 80 mg PO BEDTIME Qty: 90 RF: 3 clopidogrel 75 mg Tablet 75 mg PO DAILY Qty: 90 RF: 3 aspirin 81 mg Tablet,Delayed Release (Dr/Ec) 81 mg PO DAILY Qty: 90 RF: 3 nitroglycerin 0.4 mg Tablet, Sublingual 0.4 mg sublingual Q5M PRN (Reason: Chest Pain) Qty: 30 RF: 0 metoprolol tartrate 25 mg Tablet 25 mg PO BID@0900,2100 Qty: 120 RF: 3 acetaminophen 500 mg Tablet 500 mg PO PRN PRN (Reason: Pain) Qty: 0 RF: 0 Discharge Orders: Discharge ED (Routine); Ordered 07/05/21 Ordered By: Jayjay Mercer Referrals: Roel Lemons, [Primary Care Provider] - Discharge Diet: Usual diet Discharge Activity: Resume usual activity Patient Instructions: Chest Pain (ED) Activity Restrictions/Additional Instructions: Thank you for visiting the emergency department. You were seen and evaluated for chest pain. The exact cause of your chest pain is somewhat unclear. After discussion with cardiology we will have you follow-up in the outpatient setting. Please return to the emergency department for recurrent symptoms, worsening symptoms, or anything else that you are concerned about and feel needs emergency department evaluation. Sign Out Sign Out Data: Patient Sign Out occurred on 07/05/21 at 06:35. Patient's care was discussed, and care was transferred from to Anoop Gonsales MD. Coding Level of Care Code ED Household Cook for Sophia Ordoñez
--- NOTE | 2021-07-05 04:00 | XRR_ITS ---
PROCEDURE INFORMATION: Exam: XR Chest Exam date and time: 07/05/2021 4:00 AM Age: 56 years old Clinical indication: Chest pressure; Prior surgery; Surgery type: Coronary stent. Cervical fusion. ; Patient HX: Chest pain with radiation into left shoulder. History of mi around giving of last year. TECHNIQUE: Imaging protocol: XR of the chest. Views: 1 view. Total images: 1 COMPARISON: CR (CHEST, ) 06/08/2021 6:09 PM FINDINGS: Lungs: Unremarkable. No consolidation. Pleural spaces: Unremarkable. No pleural effusion. No pneumothorax. Heart/Mediastinum: Unremarkable. No cardiomegaly. Bones/joints: Spinal fusion hardware noted. Osseous structures are unchanged from the prior exam. XR/XR chest 1V portable [id number] IMPRESSION: No acute cardiopulmonary process.
[2021-07-05 04:05] VITALS: BP 120/67; PULSE 80; RESP 18; O2SAT 96
[2021-07-05 04:32] LABS: Basophils # 0.1 10^3/uL (0.0-0.1); Basophils % 0.8 %; Eosinophils # 0.2 10^3/uL (0.0-0.8); Eosinophils % 1.5 %; Hematocrit 48.6 % (42.0-52.0); Hemoglobin 16.6 g/dL (11.7-16.6); Lymphocytes # 1.8 10^3/uL (0.8-4.8); Lymphocytes % 15.2 %; Mean Corpuscular HGB Conc 34.2 g/dL (30.0-36.0); Mean Corpuscular Hemoglobin 32.9 pg (28.0-34.0); Mean Corpuscular Volume 96.4 fl (80-94); Mean Platelet Volume 10.5 fL (7.4-10.4); Monocytes # 0.9 10^3/uL (0.2-0.9); Monocytes % 7.5 %; Neutrophils % 74.7 %; Nucleated Red Blood Cells % 0 %; Platelet Count 306 10^3/cmm (130-400); Red Blood Count 5.04 10^6/uL (4.1-5.3); Red Cell Distribution Width 13.1 % (12.1-15.1); White Blood Count 11.9 10^3/uL (4.0-10.0)
[2021-07-05] MEDS: aspirin 81 mg Chew Tablet 324 MG PO (04:35)
[2021-07-05 04:52] LABS: Troponin(5th) Baseline 10 ng/L (0-15)
[2021-07-05 05:30] VITALS: BP 114/69; PULSE 79; RESP 18; O2SAT 96
--- NOTE | 2021-07-05 05:31 | PC.NURSE ---
Patient Refusal Patient refused SARS-Covid test.
--- NOTE | 2021-07-05 06:01 | ECG_ITS ---
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 Measurements Intervals Shiner Rate: 68 P: 52 GA: 130 QRS: 55 QRSD: 85 T: -35 QT: 378 QTc: 404 Interpretive Statements SINUS RHYTHM MODERATE T-WAVE ABNORMALITY, CONSIDER INFERIOR ISCHEMIA [-0.1+ mV T-WAVE IN II/aVF] Compared to ECG 06/08/2021 16:52:06 No significant changes Electronically Signed On 07-06-2021 22:05:52 [employer]SEMBLER [employer]PER by Marina Conte M.D. [email or web address]
[2021-07-05 06:07] VITALS: BP 103/72; PULSE 76; RESP 17; O2SAT 95
[2021-07-05 06:10] LABS: Alanine Aminotransferase 36 U/L (0-41); Albumin Level 4.7 g/dL (3.5-5.2); Alkaline Phosphatase 92 IU/L (40-130); Anion Gap 16.6 (5-19); Aspartate Amino Transferase 21 U/L (0-40); Blood Urea Nitrogen 14 mg/dL (6-20); Carbon Dioxide 23 mmol/L (22-29); Chloride 103 mmol/L (98-107); Creatinine Clr Calc Pharmacy 87.5184; Globulin 2.5 g/dL (1.3-4.6); Glomerular Filtration Rate 77.6 mL/min (90-130); Glucose 105 mg/dL (65-115); Lipase 29 U/L (13-60); NT Pro B Type Natriuretic Pept 187 pg/mL (0-125); Osmolality Calculated 287 mOsm/kg (285-295); Potassium 4.6 mmol/L (3.5-5.1); Sodium 138 mmol/L (136-145); Total Bilirubin 0.5 mg/dL (0.15-1.2); Total Protein 7.2 g/dL (6.6-8.7)
[2021-07-05 06:32] LABS: Troponin 5 2HR 8.73 ng/L (0-15)
[2021-07-05 06:35] LABS: Troponin 5 2HR Delta -1.27 ABS# (0-10)
--- NOTE | 2021-07-05 12:13 | DCPLANNER ---
media marketing manager had message to schedule a follow up appointment for patient with [facility]. media marketing manager called [facility], spoke with Susan Chacko, gave clinic patients information. A follow up appointment is scheduled for Sunday July 11, 2021 at 10:15 with ORDERING BOX OPERATOR, Lucía Vo. media marketing manager called phone number [phone], unable to speak with patient at this time, and unable to speak with patient at this time, a voicemail was left for patient to return caseworker phone call.
--- NOTE | 2021-07-18 08:30 | DCPLANNER ---
Patient had a follow up appointment scheduled for 07.11.21 with Lucía Vo at [facility] - patient did attend appointment.
== END 2021-07-05 07:47 | disposition home or self-care (01) ==
PROVIDERS: Emergency Provider Emergency Medicine; PCP Electrodiagnostic Medicine
DX: R07.9 Chest pain, unspecified (principal); I25.2 Old myocardial infarction; Z79.82 Long term (current) use of aspirin; I10 Essential (primary) hypertension; E78.5 Hyperlipidemia, unspecified; Z87.891 Personal history of nicotine dependence
CPT/HCPCS: 71045; 80053; 83690; 83880; 84484; 85025; 93005; 99284

== ENCOUNTER 2021-07-24 16:14 | Emergency (ER) | payer SELFPAY ==
[2021-07-24 16:35] VITALS: BMI 30.7
[2021-07-24 16:47] VITALS: BP 123/73; PULSE 72; RESP 20; TEMP 36.9; O2SAT 98
--- NOTE | 2021-07-24 16:54 | XRR_ITS ---
PROCEDURE INFORMATION: Exam: XR Chest Exam date and time: 07/24/2021 4:54 PM Age: 56 years old Clinical indication: Chest wall pain; Prior surgery; Surgery date: 6+ months; Surgery type: Stints; Additional info: Chest pain TECHNIQUE: Imaging protocol: XR of the chest. Views: 1 view. COMPARISON: CR (CHEST, ) 07/05/2021 4:07 AM FINDINGS: Lungs: Lungs are clear bilaterally. Pleural spaces: No pleural effusion. No pneumothorax. Heart/Mediastinum: Stable mild enlargement of the cardiac silhouette. Mediastinal contours are unremarkable. Bones/joints: Stable changes consistent with fusion at the cervicothoracic junction. XR/XR chest 1V portable [id number] IMPRESSION: 1. No acute cardiopulmonary process. 2. Incidental/nonacute findings are listed in the report.
--- NOTE | 2021-07-24 16:55 | ECG_ITS ---
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 Measurements Intervals [place] Rate: 61 P: 45 AR: 121 QRS: 43 QRSD: 84 T: -31 QT: 396 QTc: 401 Interpretive Statements SINUS RHYTHM ABNORMAL QRS-T ANGLE [QRS-T AXIS DIFFERENCE > 60] Compared to ECG 07/05/2021 06:00:14 T-wave abnormality no longer present Possible ischemia no longer present Electronically Signed On 07-24-2021 23:56:40 DENTAL LABORATORY TECHNICIAN by Mandi Ortiz M.D. [id number]
[2021-07-24 17:02] VITALS: BP 117/73; PULSE 67; RESP 18; O2SAT 100
[2021-07-24 17:13] LABS: Basophils # 0.1 10^3/uL (0.0-0.1); Basophils % 0.8 %; Eosinophils # 0.2 10^3/uL (0.0-0.8); Eosinophils % 1.5 %; Hematocrit 41.9 % (42.0-52.0); Hemoglobin 14.6 g/dL (11.7-16.6); Lymphocytes # 2.4 10^3/uL (0.8-4.8); Lymphocytes % 25.1 %; Mean Corpuscular HGB Conc 34.8 g/dL (30.0-36.0); Mean Corpuscular Hemoglobin 32.6 pg (28.0-34.0); Mean Corpuscular Volume 93.5 fl (80-94); Mean Platelet Volume 11.5 fL (7.4-10.4); Monocytes # 1.2 10^3/uL (0.2-0.9); Monocytes % 12.3 %; Nucleated Red Blood Cells % 0.2 %; Platelet Count 297 10^3/cmm (130-400); Red Blood Count 4.48 10^6/uL (4.1-5.3); Red Cell Distribution Width 12.8 % (12.1-15.1); White Blood Count 9.7 10^3/uL (4.0-10.0)
--- NOTE | 2021-07-24 17:13 | W.ED.CHESTPA ---
HPI - Chest Pain General: Chief Complaint: Chest Pain Stated Complaint: HAND AND ARM TINGLING Time Seen by Provider: 07/24/21 16:28 History of Present Illness: HPI narrative: Mr. Encinas is a 56-year-old gentleman with significant past medical history of AL in May 2021 who presents emerged department due to chest discomfort and shortness of breath. Reports essentially since AL having episodes of anxiety however today felt different. He was at work and not performing strenuous activity when he noticed sudden onset of bilateral arm tingling and shortness of breath. He had lightheaded and presyncope feeling and laid on the ground. He did note some pressure in his chest however no other typical cardiac features. Symptoms slowly improved except for nausea. Overall the course of symptoms has improved. Intensity at worst was moderate to severe. Reports that this feels different from prior episodes. No other specific changes in health, infectious symptoms, exacerbating, relieving factors identified. Pertinent past history: coronary artery disease and prior AL Onset (ago): hour(s) Timing of current episode: constant and increasing Prior episodes: Yes Onset: during rest Pain location: other Pain radiation: right arm and left arm Quality: other Relieving factors: nothing Exacerbating factors: nothing Associated symptoms: Reports nausea and other Review of Systems General: Reports: 10 or more systems reviewed and unremarkable except in HPI and below GI: Reports: nausea PFSH ED PFSH: Medical History Atherosclerosis of coronary artery H/O: GI bleed ST elevation myocardial infarction (STEMI) STEMI (ST elevation myocardial infarction) Surgical History S/P right coronary artery (RCA) stent placement Social History Smoking and tobacco status: former smoker Alcohol intake: never Physical Exam Const: COMMON NORMALS: patient oriented x3 and alert GENERAL APPEARANCE: cooperative and well developed HENMT: COMMON NORMALS: normocephalic and atraumatic HEAD & SCALP: normocephalic and atraumatic Eye: COMMON NORMALS: conjunctivae normal CONJUNCTIVA: Yes conjunctivae normal SCLERA: sclerae normal Neck/C-Spine: COMMON NORMALS: supple GENERAL: Yes trachea midline Resp: COMMON NORMALS: normal respiratory effort EFFORT & INSPECTION: Yes able to speak in complete sentences Cardio: COMMON NORMALS: regular rate and regular rhythm RATE: regular rate RHYTHM: regular rhythm GI: COMMON NORMALS: Soft to palpation PALPATION: Yes Soft to palpation and No Tenderness to palpation present (GI) PERCUSSION: normal to percussion Extremity: GENERAL: Yes normal exam except as noted and No edema Neuro: COMMON NORMALS: patient oriented x3, CN's II-XII intact bilaterally, moves all extremities, no focal motor deficits and no sensory deficits noted SENSORIUM/ORIENTATION: Yes alert and No Orientation impaired Psych: COMMON NORMALS: mental status grossly normal and Normal thought process present THOUGHT PROCESS: Normal thought process present Course ED course: - Patient was seen and evaluated by me at bedside - Patient placed on cardiac monitors, IV access obtained - Initial evaluation notable for exam as above. No appreciable neurologic deficits or things that reproduce chest pain/symptoms on exam. - Labs notable for no leukocytosis. Mild evidence of dehydration on metabolic panel. Delta troponin negative. Viral studies negative. - Imaging notable for no acute chest x-ray abnormality to explain symptoms - Upon serial reexamination after treatment the patient was improved. - Based on patient history, evaluation, labs, and imaging as interpreted the most likely cause of the patient's condition is chest pain of unclear etiology. Discussed with cardiology, plan to increase metoprolol and have close outpatient follow-up. Patient has not tolerated isosorbide in the past. - The results of ED evaluation were discussed with the patient including prescriptions and/or symptomatic cares (if applicable) including appropriate and responsible use, followup plan, and return precautions. The patient verbalized understanding and felt safe for discharge. - Patient discharged in satisfactory condition. Note: Click bubbles or prepopulated travis in note writing are used for assistance with data collection and billing and are inherently more limited than narrative and other text portions of this note. Please use narrative for additional clinical history and defer to narrative/free test for any case of contradictory information. If information appears in only free text or click bubble it should be considered present or absent as reported. Please contact note telegraphic typewriter mechanic for clarifications of clinical information or contradictory information. MDM is a brief summary, contradictory or erroneous seeming information should be clarified and full note should be reviewed. Vital Signs: Vital signs: Vital Signs Temperature 98.4 F 07/24/21 16:47 Pulse Rate 63 07/24/21 18:45 Respiratory Rate 19 H 07/24/21 18:45 Blood Pressure 121/66 07/24/21 18:45 Pulse Oximetry 97 07/24/21 18:45 MDM - Chest Pain MDM Narrative Medical decision making narrative: 56-year-old gentleman with history of STEMI presenting with atypical chest pain. Unclear exact etiology. Discussed with cardiology. Plan to uptitrate medications and have close outpatient follow-up. Medical Records Attestation: I reviewed the patient's medical records. Lab Data Attestation: I reviewed the patient's lab results. Result diagrams: 07/24/21 16:00 07/24/21 16:00 Labs: Lab Results 07/24/21 07/24/21 07/24/21 16:00 16:00 16:00 WBC 9.7 10^3/uL 10^3/uL (4.0-10.0) RBC 4.48 10^6/uL 10^6/uL (4.1-5.3) Hgb 14.6 g/dL g/dL (11.7-16.6) Hct 41.9 % L % (42.0-52.0) MCV 93.5 fl fl (80-94) MCH 32.6 pg pg (28.0-34.0) MCHC 34.8 g/dL g/dL (30.0-36.0) RDW 12.8 % % (12.1-15.1) Plt Count 297 10^3/cmm 10^3/cmm (130-400) MPV 11.5 fL H fL (7.4-10.4) Neut % (Auto) 60.0 % % Lymph % (Auto) 25.1 % % [place] % (Auto) 12.3 % % Eos % (Auto) 1.5 % % Baso % (Auto) 0.8 % % Neut # (Auto) 5.80 10^3/uL 10^3/uL (1.8-7.7) Lymph # (Auto) 2.4 10^3/uL 10^3/uL (0.8-4.8) [place] # (Auto) 1.2 10^3/uL H 10^3/uL (0.2-0.9) Eos # (Auto) 0.2 10^3/uL 10^3/uL (0.0-0.8) Baso # (Auto) 0.1 10^3/uL 10^3/uL (0.0-0.1) Nucleated RBC % (auto) 0.2 % % Nucleated RBCs # 0.0 /100WBC /100WBC Sodium 140 mmol/L mmol/L (136-145) Potassium 4.5 mmol/L mmol/L (3.5-5.1) Chloride 104 mmol/L mmol/L (98-107) Carbon Dioxide 19 mmol/L L mmol/L (22-29) Anion Gap 21.5 H (5-19) BUN 17 mg/dL mg/dL (6-20) Creatinine 1.2 mg/dL mg/dL (0.7-1.2) GFR Calculation 62.9 mL/min L mL/min (90-130) Glucose 91 mg/dL mg/dL (65-115) Calculated Osmolality 291 mOsm/kg mOsm/kg (285-295) Calcium 8.8 mg/dL mg/dL (8.5-10.5) Total Bilirubin 0.2 mg/dL mg/dL (0.15-1.2) AST 20 U/L U/L (0-40) ALT 38 U/L U/L (0-41) Alkaline Phosphatase 87 IU/L IU/L (40-130) Troponin T Baseline 10 ng/L ng/L (0-15) Troponin T 120 Minute Delta Troponin T NT-Pro-B Natriuret Pep 395 pg/mL H pg/mL (0-125) Total Protein 6.2 g/dL L g/dL (6.6-8.7) Albumin 4.2 g/dL g/dL (3.5-5.2) Globulin 2.0 g/dL g/dL (1.3-4.6) Lipase 24 U/L U/L (13-60) Procalcitonin 0.02 ng/mL ng/mL (0-0.5) Influenza Type A Ag Influenza Type B Ag SARS-CoV-2 Ag (Rapid) 07/24/21 07/24/21 07/24/21 18:18 20:51 20:51 WBC RBC Hgb Hct MCV MCH MCHC RDW Plt Count MPV Neut % (Auto) Lymph % (Auto) [place] % (Auto) Eos % (Auto) Baso % (Auto) Neut # (Auto) Lymph # (Auto) [place] # (Auto) Eos # (Auto) Baso # (Auto) Nucleated RBC % (auto) Nucleated RBCs # Sodium Potassium Chloride Carbon Dioxide Anion Gap BUN Creatinine GFR Calculation Glucose Calculated Osmolality Calcium Total Bilirubin AST ALT Alkaline Phosphatase Troponin T Baseline Troponin T 120 Minute 9.80 ng/L ng/L (0-15) Delta Troponin T -0.20 ABS# L ABS# (0-10) NT-Pro-B Natriuret Pep Total Protein Albumin Globulin Lipase Procalcitonin Influenza Type A Ag Negative (Negative) Influenza Type B Ag Negative (Negative) SARS-CoV-2 Ag (Rapid) Negative (Negative) EKG Data^ EKG 1: Attestation: I personally reviewed and interpreted this EKG as follows: EKG interpretation date: 07/24/21 EKG interpretation time: 16:52 Interpretation: EKG shows a regular rhythm at a rate of 61. [place] interval 121, QRS duration 84, QTc 399. Normal axis. Interpretation: Sinus rhythm. Nonspecific ST segment abnormalities similar to prior. EKG 2: Attestation: I personally reviewed and interpreted this EKG as follows: EKG interpretation date: 07/24/21 EKG interpretation time: 18:50 Interpretation: Twelve-lead EKG shows a regular rhythm at a rate of 64. IL interval 125, QRS duration 85, QTc 418. Normal axis. Interpretation: Sinus rhythm. Nonspecific ST segment abnormalities similar to prior. PVC. Discharge Plan Discharge Patient Disposition: Home Clinical Impression: Atypical chest pain, Paresthesia, Dehydration, mild, Nausea Condition: Stable Prescriptions: New metoprolol tartrate 25 mg tablet 25 mg PO DAILY Qty: 30 0RF ondansetron 4 mg tablet,disintegrating 4 mg PO Q8H PRN (Reason: nausea and vomiting) 5 Days Qty: 15 0RF No Action buspirone 5 mg tablet 5 mg PO TID PRN (Reason: anxiety) Qty: 90 2RF escitalopram oxalate 10 mg tablet 10 mg PO DAILY 0RF Collagen Powder See Rx Instructions .ROUTE .COMPLEX 0RF Rx Instructions: one scoopful po every morning Super Tonic See Rx Instructions .ROUTE .COMPLEX 0RF Rx Instructions: one dropperful po as needed atorvastatin 40 mg Tablet 80 mg PO BEDTIME Qty: 90 3RF clopidogrel 75 mg Tablet 75 mg PO DAILY Qty: 90 3RF aspirin 81 mg Tablet,Delayed Release (Dr/Ec) 81 mg PO DAILY Qty: 90 3RF nitroglycerin 0.4 mg Tablet, Sublingual 0.4 mg sublingual Q5M PRN (Reason: Chest Pain) Qty: 30 0RF metoprolol tartrate 25 mg Tablet 25 mg PO BID@0900,2100 Qty: 120 3RF acetaminophen 500 mg Tablet 500 mg PO PRN PRN (Reason: Pain) Qty: 0 0RF Discharge Orders: Discharge ED (Routine); Ordered 07/24/21 Ordered By: Jayjay Mercer Referrals: Roel Lemons, DO [Primary Care Provider] - Discharge Diet: Usual diet Discharge Activity: Resume usual activity Activity Restrictions/Additional Instructions: Thank you for visiting the emergency department. You were seen and evaluated for chest pain, paresthesias, and generalized symptoms. The exact cause of the symptoms is unclear unfortunately. I discussed your case with cardiology on-call. A medication adjustment can be made, instead of taking your metoprolol tartrate 25 mg twice daily please take 50 mg in the morning and 25 mg at night. I will message our case management coordinator for cardiology follow-up in the next week or 2. Please return to the emergency department for worsening symptoms or anything else that you are concerned about and feel needs emergency department evaluation. Coding Level of Care Code ED Computer Technical Support Specialist for Sophia Ordoñez
[2021-07-24 17:32] VITALS: BP 129/80; PULSE 69; RESP 22; O2SAT 96
[2021-07-24] MEDS: ondansetron 2 mg/ML SDV 2 mL 4 MG IVP ×2 (17:40→21:06)
[2021-07-24 17:47] LABS: Troponin(5th) Baseline 10 ng/L (0-15)
[2021-07-24 17:55] LABS: NT Pro B Type Natriuretic Pept 395 pg/mL (0-125); Procalcitonin 0.02 ng/mL (0-0.5)
[2021-07-24 18:02] VITALS: BP 104/67; PULSE 68; RESP 17; O2SAT 96
[2021-07-24 18:06] LABS: Alanine Aminotransferase 38 U/L (0-41); Albumin Level 4.2 g/dL (3.5-5.2); Alkaline Phosphatase 87 IU/L (40-130); Anion Gap 21.5 (5-19); Aspartate Amino Transferase 20 U/L (0-40); Blood Urea Nitrogen 17 mg/dL (6-20); Calcium 8.8 mg/dL (8.5-10.5); Carbon Dioxide 19 mmol/L (22-29); Chloride 104 mmol/L (98-107); Glomerular Filtration Rate 62.9 mL/min (90-130); Glucose 91 mg/dL (65-115); Lipase 24 U/L (13-60); Osmolality Calculated 291 mOsm/kg (285-295); Potassium 4.5 mmol/L (3.5-5.1); Sodium 140 mmol/L (136-145); Total Bilirubin 0.2 mg/dL (0.15-1.2); Total Protein 6.2 g/dL (6.6-8.7)
[2021-07-24 18:32] VITALS: BP 115/70; BP 119/71; BP 121/66; BP 99/61; PULSE 63; PULSE 70; PULSE 74; PULSE 75; RESP 19; O2SAT 97
[2021-07-24 18:45] VITALS: BP 121/66; PULSE 63; RESP 19; O2SAT 97
--- NOTE | 2021-07-24 18:55 | ECG_ITS ---
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 Measurements Intervals [place] Rate: 64 P: 45 GA: 125 QRS: 46 QRSD: 85 T: -10 QT: 409 QTc: 423 Interpretive Statements SINUS RHYTHM WITH OCCASIONAL VENTRICULAR PREMATURE COMPLEXES NONSPECIFIC T-WAVE ABNORMALITY Compared to ECG 07/24/2021 16:51:41 Ventricular premature complex(es) now present T-wave abnormality now present Electronically Signed On 07-25-2021 17:28:31 RESIDENTIAL PROPERTY TAX APPRAISER by Mairna Conte M.D. [id number]
[2021-07-24] MEDS: sodium chloride 0.9% 1,000 ML 999 ML IV (21:06)
[2021-07-24 21:20] LABS: Influenza A by IFA Negative (Negative); Influenza B by IFA Negative (Negative); SARS Covid-2 Antigen Negative (Negative)
--- NOTE | 2021-07-26 13:02 | DCPLANNER ---
Addendum entered by Jailene Garza 08/04/21 11:00: Patient had a follow up appointment scheduled for 07.28.21 with [facility] - patient did attend appointment. Original Note: financial compliance manager had message to schedule a follow up appointment with [facility]. financial compliance manager called [facility], spoke with Rachna, gave clinic patients information. A follow up appointment was scheduled for Saturday, July 28, 2021 at 9:45 with HYDRATOR OPERATOR, Lucía Vo. Patient is aware of appointment.
== END 2021-07-24 21:54 | disposition home or self-care (01) ==
PROVIDERS: Emergency Provider Emergency Medicine; PCP Electrodiagnostic Medicine
DX: R07.89 Other chest pain (principal); R20.2 Paresthesia of skin; E86.0 Dehydration; R11.0 Nausea; Z79.02 Long term (current) use of antithrombotics/antiplatelets; Z79.82 Long term (current) use of aspirin; I25.2 Old myocardial infarction; Z87.891 Personal history of nicotine dependence; Z20.822 Contact with and (suspected) exposure to COVID-19
CPT/HCPCS: 71045; 80053; 83690; 83880; 84145; 84484; 85025; 87426; 87804; 93005; 96361; 96374; 96375; 99284; J2405; J7030

== ENCOUNTER → 2021-07-28 11:20 | Outpatient (BNVA) | payer SELFPAY | PROVIDERS: PCP Electrodiagnostic Medicine; Visit Provider Nurse Practitioner Family | DX: R11.2 Nausea with vomiting, unspecified (principal); R55 Syncope and collapse | CPT/HCPCS: 87338 ==

== ENCOUNTER 2022-07-19 01:08 | Emergency (ER) | payer OTHER, SELFPAY ==
[2022-07-19 01:14] VITALS: BP 120/70; PULSE 81; RESP 12; TEMP 36.3; O2SAT 97; BMI 28.1
--- NOTE | 2022-07-19 01:21 | XRR_ITS ---
PROCEDURE INFORMATION: Exam: XR Chest Exam date and time: 07/19/2022 1:55 AM Age: 57 years old Clinical indication: Shortness of breath; Prior surgery; Surgery type: Coronary stent; Patient HX: SOB. ; Additional info: Cp TECHNIQUE: Imaging protocol: Radiologic exam of the chest. Views: 1 view. COMPARISON: CR (CHEST, ) 24/07/2021 17:14 FINDINGS: Lungs: Unremarkable. No consolidation. Pleural spaces: Unremarkable. No pleural effusion. No pneumothorax. Heart/Mediastinum: Unremarkable. No cardiomegaly. Bones/joints: Lower cervical fusion. XR/XR chest 1V portable [id number] IMPRESSION: No acute findings.
--- NOTE | 2022-07-19 01:21 | CTR_ITS ---
PROCEDURE INFORMATION: Exam: CT Abdomen And Pelvis With Contrast Exam date and time: 07/19/2022 2:02 AM Age: 57 years old Clinical indication: Abdominal pain; Patient HX: C/O epigastric pain with nausea. Recently prescribed meds for ulcers by pcp. ; Additional info: Abd pain TECHNIQUE: Imaging protocol: Computed tomography of the abdomen and pelvis with contrast. Radiation optimization: All CT scans at this facility use at least one of these dose optimization techniques: automated exposure control; mA and/or kV adjustment per patient size (includes targeted exams where dose is matched to clinical indication); or iterative reconstruction. Contrast material: OMNI 350; Contrast volume: 100 ml; Contrast route: INTRAVENOUS (IV); COMPARISON: CR (CHEST, ) 19/07/2022 01:55 RADIATION DOSE METRICS: Total DLP (mGy-cm): 588.23 FINDINGS: Lungs: Minimal lung base atelectasis or scarring. Heart: The heart is normal size. Liver: Unremarkable. No enhancing mass. Gallbladder and bile ducts: No calcified gallstones or biliary dilation identified. Pancreas: Unremarkable with no suspicious mass. No ductal dilation. Spleen: The spleen is not enlarged. No suspicious enhancing mass is noted. Adrenal glands: Normal. No mass. Kidneys and ureters: No solid renal mass or hydronephrosis. Stomach and bowel: No small bowel obstruction, abscess or free air. A few loops of left-sided small bowel show mild wall thickening and measure up to about 2.8 cm. Mild sigmoid diverticulosis. Appendix: No evidence of appendicitis. Intraperitoneal space: See Stomach and bowel finding. Vasculature: No AAA or acute vascular lesion identified. Lymph nodes: No enlarged lymph nodes. Urinary bladder: Unremarkable as visualized. Reproductive: The prostate is mildly enlarged. Bones/joints: Severe L5-S1 DDD. Soft tissues: Tiny fat umbilical hernia. CT/CT abdomen pelvis w con* [id number] IMPRESSION: 1. Mild jejunal enteritis. No small bowel obstruction, abscess or free air. 2. A few chronic findings above.
--- NOTE | 2022-07-19 01:22 | ED_ITS ---
HPI - Abdominal Pain General: Chief Complaint: Abdominal Pain Stated Complaint: ABD Pain Time Seen by Provider: 07/19/22 01:19 Source: patient Mode of arrival: ambulatory Limitations: no limitations History of Present Illness: 57-year-old male states he been having abdominal pain over the last month. He states that tonight it got much worse its in the epigastric region sort of radiates in the chest as well. He denies any vomiting or diarrhea. He states that the pain was worse earlier tonight is currently an 8 out of 10 he denies any worsening proving factors. He denies any chest pain currently. Associated Symptoms: Denies chills, dysuria and fever(s) Review of Systems Const: Denies: fever(s), chills, body aches or change in appetite Eyes: Denies: blurry vision or eye discomfort ENMT: Denies: throat pain or dental pain Card: Denies: chest pain Resp: Denies: dyspnea GI: Reports: abdominal pain : Denies: dysuria Musc: Denies: neck pain or back pain Skin/Breast: Denies: rash Neuro: Denies: headache(s) Psych: Denies: depression Yonathan/Lymph: Denies: easy bruising All/Imm: Denies: urticaria PFSH ED PFSH: Medical History Atherosclerosis of coronary artery H/O: GI bleed ST elevation myocardial infarction (STEMI) STEMI (ST elevation myocardial infarction) Surgical History S/P right coronary artery (RCA) stent placement Social History Smoking and tobacco status: former smoker Alcohol intake: never Physical Exam Const: COMMON NORMALS: no acute distress, patient oriented x3 and healthy appearing HENMT: COMMON NORMALS: normocephalic and atraumatic HEAD & SCALP: normocephalic and atraumatic Eye: COMMON NORMALS: Equal, round and reactive pupils present and EOMs intact bilaterally PUPIL: Yes Equal, round and reactive pupils present Neck/C-Spine: COMMON NORMALS: full ROM and supple Chest: COMMONS NORMALS: normal inspection of the chest and normal palpation of entire chest wall Resp: COMMON NORMALS: normal respiratory effort, No retractions, No use of accessory muscles and clear to auscultation bilaterally AUSCULTATION: clear to auscultation bilaterally Cardio: COMMON NORMALS: regular rate, regular rhythm and No murmurs present (Cardio) RATE: regular rate RHYTHM: regular rhythm GI: COMMON NORMALS: Normal to inspection, nondistended, normoactive bowel sounds present, Soft to palpation and no masses PALPATION: Yes Soft to palpation OTHER: epigastric tenderness Extremity: COMMON NORMALS: normal to inspection and full ROM Neuro: COMMON NORMALS: patient oriented x3, moves all extremities and no focal motor deficits Psych: COMMON NORMALS: mental status grossly normal, Normal thought process present and cooperative THOUGHT PROCESS: Normal thought process present Skin: COMMON NORMALS: no rashes or lesions noted and no wounds GENERAL SKIN EXAM: no rashes or lesions noted Course Vital Signs: Vital signs: Vital Signs Temperature 97.4 F L 07/19/22 01:14 Pulse Rate 81 07/19/22 01:14 Respiratory Rate 12 07/19/22 01:14 Blood Pressure 120/70 07/19/22 01:14 Pulse Oximetry 97 07/19/22 01:14 Oxygen Delivery Me thod 07/19/22 01:14 MDM - Abdominal Pain Medical Decision Making Patient presents here with abdominal pain is likely gastritis his pain was completely resolved here with a GI cocktail we will start him on Protonix we will get him in surgery follow-up patient is to return if worsening he understands agrees to plan. Lab Data 07/19/22 01:39 07/19/22 01:39 Labs/Radiology: Radiology Impressions Abdomen/Pelvis CT 07/19/22 01:21 IMPRESSION: 1. Mild jejunal enteritis. No small bowel obstruction, abscess or free air. 2. A few chronic findings above. Chest X-Ray 07/19/22 01:21 IMPRESSION: No acute findings. Laboratory Results WBC 7.4 10^3/uL (4.0-10.0) 07/19/22 01:39 RBC 4.89 10^6/uL (4.1-5.3) 07/19/22 01:39 Hgb 16.0 g/dL (11.7-16.6) 07/19/22 01:39 Hct 47.3 % (42.0-52.0) 07/19/22 01:39 MCV 96.7 fl (80-94) H 07/19/22 01:39 MCH 32.7 pg (28.0-34.0) 07/19/22 01:39 MCHC 33.8 g/dL (30.0-36.0) 07/19/22 01:39 RDW 12.9 % (12.1-15.1) 07/19/22 01:39 Plt Count 275 10^3/cmm (130-400) 07/19/22 01:39 MPV 10.8 fL (7.4-10.4) H 07/19/22 01:39 Neut % (Auto) 56.3 % 07/19/22 01:39 Lymph % (Auto) 32.3 % 07/19/22 01:39 [place] % (Auto) 9.6 % 07/19/22 01:39 Eos % (Auto) 1.2 % 07/19/22 01:39 Baso % (Auto) 0.5 % 07/19/22 01:39 Neut # (Auto) 4.18 10^3/uL (1.8-7.7) 07/19/22 01:39 Lymph # (Auto) 2.4 10^3/uL (0.8-4.8) 07/19/22 01:39 [place] # (Auto) 0.7 10^3/uL (0.2-0.9) 07/19/22 01:39 Eos # (Auto) 0.1 10^3/uL (0.0-0.8) 07/19/22 01:39 Baso # (Auto) 0.0 10^3/uL (0.0-0.1) 07/19/22 01:39 Nucleated RBC % (auto) 0 % 07/19/22 01:39 Nucleated RBCs # 0.0 /100WBC 07/19/22 01:39 Sodium 140 mmol/L (136-145) 07/19/22 01:39 Potassium 4.3 mmol/L (3.5-5.1) 07/19/22 01:39 Chloride 106 mmol/L (98-107) 07/19/22 01:39 Carbon Dioxide 24 mmol/L (22-29) 07/19/22 01:39 Anion Gap 14.3 (5-19) 07/19/22 01:39 BUN 20 mg/dL (6-20) 07/19/22 01:39 Creatinine 1.1 mg/dL (0.7-1.2) 07/19/22 01:39 GFR Calculation 69.2 mL/min (90-130) L 07/19/22 01:39 Glucose 101 mg/dL (65-115) 07/19/22 01:39 Calculated Osmolality 293 mOsm/kg (285-295) 07/19/22 01:39 Calcium 9.0 mg/dL (8.5-10.5) 07/19/22 01:39 Total Bilirubin 0.3 mg/dL (0.15-1.2) 07/19/22 01:39 AST 32 U/L (0-40) 07/19/22 01:39 ALT 51 U/L (0-41) H 07/19/22 01:39 Alkaline Phosphatase 61 U/L (40-130) 07/19/22 01:39 Troponin T Baseline 6 ng/L (0-15) 07/19/22 01:39 Total Protein 6.6 g/dL (6.6-8.7) 07/19/22 01:39 Albumin 4.3 g/dL (3.5-5.2) 07/19/22 01:39 Globulin 2.3 g/dL (1.3-4.6) 07/19/22 01:39 Lipase 27 U/L (13-60) 07/19/22 01:39 Discharge Plan Discharge Patient Disposition: Home Clinical Impression: Abdominal pain Condition: Stable Prescriptions: New Protonix 40 mg tablet,delayed release (DR/EC) 40 mg PO DAILY Qty: 60 0RF No Action escitalopram oxalate 10 mg tablet 10 mg PO DAILY atorvastatin 40 mg tablet 80 mg PO BEDTIME Qty: 180 2RF nitroglycerin 0.4 mg tablet, sublingual 0.4 mg sublingual Q5M PRN (Reason: Chest Pain) Qty: 30 2RF clopidogrel 75 mg tablet 75 mg PO DAILY Qty: 90 3RF metoprolol tartrate 25 mg tablet 25 mg PO DAILY Qty: 90 2RF Collagen Powder See Rx Instructions .ROUTE .COMPLEX Rx Instructions: one scoopful po every morning Super Tonic See Rx Instructions .ROUTE .COMPLEX Rx Instructions: one dropperful po as needed aspirin 81 mg Tablet,Delayed Release (Dr/Ec) 81 mg PO DAILY Qty: 90 3RF acetaminophen 500 mg Tablet 500 mg PO PRN PRN (Reason: Pain) Qty: 0 0RF Discharge Orders: Discharge ED (Routine); Ordered 07/19/22 Ordered By: Tayla Bazzi Referrals: Pawel Chavez DO [Physician] - 1-3 days Discharge Diet: Advance as tolerated Discharge Activity: Resume usual activity Patient Instructions: Abdominal Pain (ED) Coding Level of Care Code ED Motor Grader Operator for Chg Fwd Exam Comprehensive
--- NOTE | 2022-07-19 01:37 | ECG_ITS ---
[facility] Test Date: 2022-07-19 Pat Name: Matthew Encinas Department: Room: Gender: Male Director Of Student Affairs: : 1965 Requested By: Tayla Bazzi Order Number: [id number] Mayco MD: Hermelindo Zhao M.D. Measurements Intervals [place] Rate: 71 P: 53 [place]: 136 QRS: 54 QRSD: 90 T: 25 QT: 369 QTc: 402 Interpretive Statements SINUS RHYTHM Compared to ECG 07/24/2021 18:43:11 Ventricular premature complex(es) no longer present T-wave abnormality no longer present Electronically Signed On 07-19-2022 14:45:25 SCALE EXPERT by Hermelindo Zhao M.D. [email or web address] hospitalJelly Button Gamesmercy health [facility].JoggleBug/store/OM/[id number]
[2022-07-19 01:44] LABS: Basophils % 0.5 %; Eosinophils # 0.1 10^3/uL (0.0-0.8); Eosinophils % 1.2 %; Hematocrit 47.3 % (42.0-52.0); Lymphocytes # 2.4 10^3/uL (0.8-4.8); Lymphocytes % 32.3 %; Mean Corpuscular HGB Conc 33.8 g/dL (30.0-36.0); Mean Corpuscular Hemoglobin 32.7 pg (28.0-34.0); Mean Corpuscular Volume 96.7 fl (80-94); Mean Platelet Volume 10.8 fL (7.4-10.4); Monocytes # 0.7 10^3/uL (0.2-0.9); Monocytes % 9.6 %; Neutrophils # 4.18 10^3/uL (1.8-7.7); Neutrophils % 56.3 %; Nucleated Red Blood Cells % 0 %; Platelet Count 275 10^3/cmm (130-400); Red Blood Count 4.89 10^6/uL (4.1-5.3); Red Cell Distribution Width 12.9 % (12.1-15.1); White Blood Count 7.4 10^3/uL (4.0-10.0)
[2022-07-19] MEDS: lidocaine 2% viscous 15 ML, aluminum-mag hydrox-simethicon 30 ML, sucralfate oral liq 1 GM PO (01:47)
[2022-07-19] MEDS: sodium chloride 0.9% 1,000 ML 999 ML IV (01:50)
[2022-07-19] MEDS: iohexol 350 mg/mL 500 mL Btl (per mL) IV (02:03)
[2022-07-19 02:06] LABS: Alanine Aminotransferase 51 U/L (0-41); Albumin Level 4.3 g/dL (3.5-5.2); Alkaline Phosphatase 61 U/L (40-130); Aspartate Amino Transferase 32 U/L (0-40); Blood Urea Nitrogen 20 mg/dL (6-20); Carbon Dioxide 24 mmol/L (22-29); Chloride 106 mmol/L (98-107); Globulin 2.3 g/dL (1.3-4.6); Glomerular Filtration Rate 69.2 mL/min (90-130); Glucose 101 mg/dL (65-115); Lipase 27 U/L (13-60); Osmolality Calculated 293 mOsm/kg (285-295); Sodium 140 mmol/L (136-145); Total Bilirubin 0.3 mg/dL (0.15-1.2); Total Protein 6.6 g/dL (6.6-8.7)
[2022-07-19 02:07] LABS: Troponin(5th) Baseline 6 ng/L (0-15)
[2022-07-19 02:15] LABS: Anion Gap 14.3 (5-19); Potassium 4.3 mmol/L (3.5-5.1)
[2022-07-19 02:18] VITALS: BP 117/62; PULSE 71; RESP 18; O2SAT 99
[2022-07-19 03:11] VITALS: BP 106/56; PULSE 75; RESP 18; O2SAT 100
--- NOTE | 2022-07-19 10:20 | DCPLANNER ---
Addendum entered by Jailene Garza 07/20/22 11:03: industrial maintenance manager received the following message from the general surgery clinic regarding follow up appointment: I am only showing [facility] in patient's chart, Dr. Chavez cannot take optum.. Please refer elsewhere industrial maintenance manager spoke with patient, he stated that he would let the [facility] refer him to someone that is in network with insurance. industrial maintenance manager emailed patients information to Malissa with [facility] and informed her that patient case coordinator could not refer patient to [facility] General Surgery, due to Dr. Chavez not being in network. Original Note: industrial maintenance manager had message to schedule a follow up appointment for patient with general surgery. industrial maintenance manager sent patients information to the front office staff at general surgery. Patients information will be printed and reviewed. Clinic will call patient with appointment information.
== END 2022-07-19 03:12 | disposition home or self-care (01) ==
PROVIDERS: Emergency Provider Emergency Medicine
DX: R10.13 Epigastric pain (principal); Z79.82 Long term (current) use of aspirin; Z79.02 Long term (current) use of antithrombotics/antiplatelets; I25.10 Atherosclerotic heart disease of native coronary artery without angina pectoris; I25.2 Old myocardial infarction; Z87.891 Personal history of nicotine dependence
CPT/HCPCS: 71045; 74177; 80053; 83690; 84484; 85025; 93005; 96360; 99285; J7030; Q9967

== ENCOUNTER → 2023-01-29 13:43 | Outpatient (BNVA) | payer OTHER, SELFPAY | PROVIDERS: Visit Provider Internal Medicine Cardiovascular Disease | DX: I25.119 Atherosclerotic heart disease of native coronary artery with unspecified angina pectoris (principal); E78.5 Hyperlipidemia, unspecified; E66.9 Obesity, unspecified; I25.2 Old myocardial infarction; Z87.891 Personal history of nicotine dependence; Z68.31 Body mass index [BMI] 31.0-31.9, adult | CPT/HCPCS: 99214 ==

== ENCOUNTER 2023-02-24 08:29 | Observation (INO) | payer OTHER, SELFPAY ==
[2023-02-24] VITALS (24 sets, daily range): BP systolic 112–136; BP diastolic 65–86; PULSE 65–86; RESP 8–29; TEMP 36.6–36.7; O2SAT 89–95; BMI 31.3
--- NOTE | 2023-02-24 08:35 | XRR_ITS ---
PROCEDURE INFORMATION: Exam: XR Chest Exam date and time: 02/24/2023 8:50 AM Age: 58 years old Clinical indication: Chest pain. Angina pectoris. TECHNIQUE: Imaging protocol: Radiologic exam of the chest. Views: 1 view. COMPARISON: CR XR chest 1V portable [id number] 07/19/2022 1:55 AM FINDINGS: Lungs: No pulmonary consolidation. Pleural spaces: No pleural effusion. No pneumothorax. Heart/Mediastinum: The cardiac silhouette is approximately unchanged given slight differences in technique. No gross evidence of pneumomediastinum. Bones/joints: Cervical hardware is noted. No gross fracture. XR/XR chest 1V portable [id number] IMPRESSION: No acute cardiopulmonary abnormality identified.
--- NOTE | 2023-02-24 08:35 | ED_ITS ---
HPI - Chest Pain General: Chief Complaint: Chest Pain Stated Complaint: CP Time Seen by Provider: 02/24/23 08:32 Source: patient Mode of arrival: ambulatory History of Present Illness: 58-year-old male with a known history of coronary disease 2 years ago he had a STEMI which he had a distal RCA lesion stented with an ostial lesion with 30 or 40% blockage that was not considered significant was not the culprit lesion was therefore not treated at the time. He has not had any difficulty or chest pain since. He was at [employer] today sitting nonexertional and began to have chest pain get diaphoretic and short of breath. It was relieved after a second nitro. He had radiation of discomfort into his left arm as well. Patient is a former smoker he is not diabetic. Continues to take his Plavix as well as aspirin daily. He states his first episode of chest pain that he had since he had his angiography and stent placement. He did not have any stress testing after the stent was placed. MD complaint: chest pain Pertinent past history: coronary artery disease Onset (ago): minute(s) Timing of current episode: episodic Prior episodes: No Onset: during rest Pain location: left chest Pain radiation: left arm Severity: moderate Quality: aching and heaviness Relieving factors: nitroglycerin Associated symptoms: Reports diaphoresis, dyspnea and nausea; Deny abdominal pain, fever(s), leg edema, palpitations, sense of impending doom, syncope or vomiting Treatment prior to arrival: nitroglycerin Risk Factors: Coronary artery disease risk factors: smoking history Review of Systems Const: Reports: diaphoresis; Denies: fever(s) ENMT: Denies: throat pain, ear or mastoid pain, nasal discharge or nasal co ngestion Card: Reports: chest pain; Denies: palpitations, irregular heart rhythm, edema, swelling of feet/ankles or syncope Resp: Reports: dyspnea; Denies: productive cough or non-productive cough GI: Reports: nausea; Denies: abdominal pain or vomiting : Denies: flank pain, dysuria, urinary frequency or urinary urgency Skin/Breast: Denies: rash or pruritus PFS ED PFSH: Medical History Atherosclerosis of coronary artery H/O: GI bleed Hyperlipidemia Obesity ST elevation myocardial infarction (STEMI) STEMI (ST elevation myocardial infarction) Surgical History S/P right coronary artery (RCA) stent placement Social History Smoking and tobacco status: former smoker Alcohol intake: never Substance/Drug Use: never Physical Exam Const: COMMON NORMALS: no acute distress GENERAL APPEARANCE: cooperative and comfortable ORIENTATION/CONSCIOUSNESS: Yes awake, Yes oriented to person, Yes oriented to place and Yes oriented to time HENMT: COMMON NORMALS: normocephalic, atraumatic and hearing grossly normal bilaterally HEAD & SCALP: normocephalic and atraumatic Resp: COMMON NORMALS: normal respiratory effort, No retractions, No use of accessory muscles and clear to auscultation bilaterally AUSCULTATION: clear to auscultation bilaterally Cardio: COMMON NORMALS: regular rate, regular rhythm and No murmurs present ( Cardio) RATE: regular rate RHYTHM: regular rhythm GI: COMMON NORMALS: Soft to palpation and No hepatosplenomegaly present AUSCULTATION: Yes normoactive bowel sounds PALPATION: Yes Soft to palpation, No Tenderness to palpation present (GI), No Guarding due to palpation present (GI) and Yes No hepatosplenomegaly present Extremity: COMMON NORMALS: normal to inspection, capillary refill normal, no clubbing, cyanosis or edema, no calf tenderness and no pedal edema Neuro: SENSORIUM/ORIENTATION: Yes oriented to person, Yes oriented to place and Yes oriented to time Skin: COMMON NORMALS: no rashes or lesions noted GENERAL SKIN EXAM: no rashes or lesions noted Course Vital Signs: Vital signs: Vital Signs Temperature 97.8 F 02/24/23 08:32 Pulse Rate 74 02/24/23 09:48 Respiratory Rate 14 02/24/23 09:48 Blood Pressure 136/86 02/24/23 09:48 Pulse Oximetry 92 02/24/23 09:48 Oxygen Delivery Me thod Room Air 02/24/23 09:48 MDM - Chest Pain Medical Decision Making No acute ST changes. Initial cardiac enzyme troponin of 6. Patient has known coronary disease had a distal RCA stent placed to the marginal branch with 30 to 40% a little over 2 years ago. Concerning his unstable angina presentation relieved by nitro. He has not had a stress test since his previous angiogram. Patient meets high risk criteria we will place in observation for early stress testing discussed with hospitalist orders written. At this time blood pressures just over 100 he is not having any chest pains we did not start him on any nitro. Medical Records I reviewed the patient's medical records. Lab Data I reviewed the patient's lab results. 02/24/23 08:38 02/24/23 08:38 Radiology Impressions Chest X-Ray 02/24/23 08:35 IMPRESSION: No acute cardiopulmonary abnormality identified. Laboratory Results WBC 7.07 10^3/uL (3.29-11.43) 02/24/23 08:38 RBC 4.73 10^6/uL (3.85-5.65) 02/24/23 08:38 Hgb 15.60 g/dL (11.27-16.99) 02/24/23 08:38 Hct 45.3 % (37-53) 02/24/23 08:38 MCV 95.8 fl (82-101) 02/24/23 08:38 MCH 33.0 pg (27-33) 02/24/23 08:38 MCHC 34.4 g/dL (30-55) 02/24/23 08:38 RDW 13.0 % (12.1-15.1) 02/24/23 08:38 Plt Count 269 10^3/cmm (157-399) 02/24/23 08:38 MPV 10.1 fL (7.4-10.4) 02/24/23 08:38 Neut % (Auto) 65.7 % 02/24/23 08:38 Lymph % (Auto) 24.0 % 02/24/23 08:38 [place] % (Auto) 8.3 % 02/24/23 08:38 Eos % (Auto) 1.3 % 02/24/23 08:38 Baso % (Auto) 0.4 % 02/24/23 08:38 Neut # (Auto) 4.64 10^3/uL (1.8-7.7) 02/24/23 08:38 Lymph # (Auto) 1.7 10^3/uL (0.8-4.8) 02/24/23 08:38 [place] # (Auto) 0.6 10^3/uL (0.2-0.9) 02/24/23 08:38 Eos # (Auto) 0.1 10^3/uL (0.0-0.8) 02/24/23 08:38 Baso # (Auto) 0.0 10^3/uL (0.0-0.1) 02/24/23 08:38 Nucleated RBC % (auto) 0 % 02/24/23 08:38 Nucleated RBCs # 0.0 /100WBC 02/24/23 08:38 Sodium 141 mmol/L (136-145) 02/24/23 08:38 Potassium 4.3 mmol/L (3.5-5.1) 02/24/23 08:38 Chloride 107 mmol/L (98-107) 02/24/23 08:38 Carbon Dioxide 24 mmol/L (22-29) 02/24/23 08:38 Anion Gap 14.3 (5-19) 02/24/23 08:38 BUN 22 mg/dL (6-20) H 02/24/23 08:38 Creatinine 1.1 mg/dL (0.7-1.2) 02/24/23 08:38 GFR Calculation 69.0 mL/min (90-130) L 02/24/23 08:38 Glucose 159 mg/dL (65-115) H 02/24/23 08:38 Calculated Osmolality 299 mOsm/kg (285-295) H 02/24/23 08:38 Calcium 9.0 mg/dL (8.5-10.5) 02/24/23 08:38 Total Bilirubin 0.4 mg/dL (0.15-1.2) 02/24/23 08:38 AST 22 U/L (0-40) 02/24/23 08:38 ALT 34 U/L (0-41) 02/24/23 08:38 Alkaline Phosphatase 64 U/L (40-130) 02/24/23 08:38 Troponin T Baseline 6 ng/L (0-15) 02/24/23 08:38 Troponin T 120 Minute 6.35 ng/L (0-15) 02/24/23 10:28 Delta Troponin T 0.35 ABS# (0-10) 02/24/23 10:28 Total Protein 7.0 g/dL (6.6-8.7) 02/24/23 08:38 Albumin 4.3 g/dL (3.5-5.2) 02/24/23 08:38 Globulin 2.7 g/dL (1.3-4.6) 02/24/23 08:38 Discharge Plan Discharge Patient Disposition: Placed in Observation Clinical Impression: Angina pectoris, unstable, Hyperlipidemia, Atherosclerosis of coronary artery Condition: Stable Prescriptions: No Action atorvastatin 40 mg tablet 40 mg PO BEDTIME Qty: 90 2RF nitroglycerin 0.4 mg tablet, sublingual 0.4 mg sublingual Q5M PRN (Reason: Chest Pain) Qty: 30 2RF clopidogrel 75 mg tablet 75 mg PO DAILY Qty: 90 3RF metoprolol tartrate 25 mg tablet 25 mg PO DAILY Qty: 90 2RF Super Tonic See Rx Instructions .ROUTE .COMPLEX Rx Instructions: one dropperful po as needed aspirin 81 mg Tablet,Delayed Release (Dr/Ec) 81 mg PO DAILY Qty: 90 3RF acetaminophen 500 mg Tablet 500 mg PO PRN PRN (Reason: Pain) Qty: 0 0RF buspirone 10 mg Tablet 10 mg PO TID Coding Level of Care Code ED Green Chain Marker for Linag Tiago
[2023-02-24] MEDS: aspirin 81 mg Chew Tablet 324 MG PO (08:49)
[2023-02-24 09:03] LABS: Basophils % 0.4 %; Eosinophils # 0.1 10^3/uL (0.0-0.8); Eosinophils % 1.3 %; Hematocrit 45.3 % (37-53); Lymphocytes # 1.7 10^3/uL (0.8-4.8); Mean Corpuscular HGB Conc 34.4 g/dL (30-55); Mean Corpuscular Volume 95.8 fl (82-101); Mean Platelet Volume 10.1 fL (7.4-10.4); Monocytes # 0.6 10^3/uL (0.2-0.9); Monocytes % 8.3 %; Neutrophils # 4.64 10^3/uL (1.8-7.7); Neutrophils % 65.7 %; Nucleated Red Blood Cells % 0 %; Platelet Count 269 10^3/cmm (157-399); Red Blood Count 4.73 10^6/uL (3.85-5.65); White Blood Count 7.07 10^3/uL (3.29-11.43)
[2023-02-24 09:18] LABS: Alanine Aminotransferase 34 U/L (0-41); Albumin Level 4.3 g/dL (3.5-5.2); Alkaline Phosphatase 64 U/L (40-130); Anion Gap 14.3 (5-19); Aspartate Amino Transferase 22 U/L (0-40); Blood Urea Nitrogen 22 mg/dL (6-20); Carbon Dioxide 24 mmol/L (22-29); Chloride 107 mmol/L (98-107); Globulin 2.7 g/dL (1.3-4.6); Glucose 159 mg/dL (65-115); Osmolality Calculated 299 mOsm/kg (285-295); Potassium 4.3 mmol/L (3.5-5.1); Sodium 141 mmol/L (136-145); Total Bilirubin 0.4 mg/dL (0.15-1.2)
[2023-02-24 09:19] LABS: Troponin(5th) Baseline 6 ng/L (0-15)
--- NOTE | 2023-02-24 09:48 | PC.PHAR ---
PT STATES TAKES BUSPIRONE 10MG TWICE DAILY. PT ALSO STATES TAKES 1 OTHER NEW MEDICATION AT BEDTIME FOR SLEEP BUT DOES NOT REMEMBER WHAT IT IS. UNABLE TO VERIFY WITH PHARMACY TO WHAT MEDICATION IS. 9:49 AM 02/24/23
--- NOTE | 2023-02-24 10:36 | ECG_ITS ---
[facility] Test Date: 2023-02-24 Pat Name: Matthew Encinas Department: Room: Gender: Male Plate Printer: : 1965 Requested By: Matthew Suárez Order Number: [id number] Mayco MD: Hermelindo Zhao M.D. Measurements Intervals [place] Rate: 78 P: 51 NM: 126 QRS: 47 QRSD: 94 T: 5 QT: 368 QTc: 422 Interpretive Statements SINUS RHYTHM POSSIBLE LEFT ATRIAL ENLARGEMENT [-0.1mV P-WAVE IN V1/V2] Compared to ECG 07/19/2022 01:37:40 No significant changes Electronically Signed On 02-24-2023 15:23:52 CDT by Hermelindo Zhao M.D. [email or web address].Articulate Technologiesochsner medical centerEdicyregional medical center.ZANY OX/store/Om/[id number]
[2023-02-24 11:13] LABS: Troponin 5 2HR 6.35 ng/L (0-15); Troponin 5 2HR Delta 0.35 ABS# (0-10)
[2023-02-24 12:07] LABS: Procalcitonin 0.05 ng/mL (0-0.5)
[2023-02-24 14:20] LABS: Iron 90 ug/dL (59-158); Percent Saturation 31.4 % (20-50); Thyroid Stimulating Hormone 1.51 uIU/mL (0.27-4.20); Total Iron Binding Capacity 286 mcg/dl; Unsaturated Iron Binding 196 ug/dL (112-347); Vitamin B12 450 pg/mL (232-1245)
--- NOTE | 2023-02-24 14:36 | ECG_ITS ---
[facility] Test Date: 2023-02-24 Pat Name: Matthew Encinas Department: Room: 101 Gender: Male Stippler: : 1965 Requested By: Matthew Suárez Order Number: [id number] Mayco MD: Hermelindo Zhao M.D. Measurements Intervals [place] Rate: 70 P: 50 NE: 137 QRS: 53 QRSD: 89 T: 23 QT: 369 QTc: 400 Interpretive Statements SINUS RHYTHM Compared to ECG 02/24/2023 08:35:54 No significant changes Electronically Signed On 02-24-2023 15:21:49 CDT by Hermelindo Zhao M.D. [email or web address] memorial hospitalSigmatixmount carmel health system.Fantoo/store/OM/[id number]
[2023-02-24] MEDS: BuSPIRONE 10 mg Tablet PO ×2 (16:01→20:31)
--- NOTE | 2023-02-24 16:23 | PM.HP ---
Providers/Chief Complaint Admitting Physician: Davidson Ornelas MD Chief Complaint: CP History of Present Illness Matthew Encinas is a 58 year old male with past medical history of CAD, ST elevation of inferior leads post PCI to RCA with BRADEN, hypertension, hyperlipidemia, anxiety disorder with history of recurrent episodes of anxiety presents to the ER today with chest pain along with heaviness, diaphoresis and nausea without vomiting today morning when he was coming out of the mormonism. States symptoms of feeling different than his usual anxiety attacks since he took nitro x2 which helped. Currently patient is chest pain-free. His symptoms are more like his heart attack in the past. Denies any recent changes in medications other than decreasing the dose of atorvastatin to half because of knee pain by the grain merchandiser. Review of Systems General: Reports: 10 or more systems reviewed and unremarkable except in HPI and below Const: Denies: fever(s), chills, body aches, change in appetite, change in weight, malaise, night sweats, diaphoresis, change in sleep pattern, daytime sleepiness or snoring Eyes: Denies: change in vision, blurry vision, photophobia, eye discomfort or eye discharge ENMT: Denies: throat pain, enlarged tonsils, hoarseness, mouth pain, oral sores, dry mouth, tinnitus, nasal congestion or post nasal drip Card: Denies: chest pain, palpitations, irregular heart rhythm, edema, swelling of feet/ankles, lightheadedness, syncope, pre-syncope, dyspnea on exertion, orthopnea, leg pain with exertion or acrocyanosis Resp: Denies: dyspnea, productive cough, non-productive cough, wheezing, stridor, pain on inspiration, change in phlegm color, hemoptysis or chest congestion GI: Denies: abdominal pain, nausea, vomiting, hematemesis, coffee ground emesis, dysphagia, heartburn, diarrhea, constipation, bloating, GI cramping, change in bowel habits, pain on defecation, hematochezia or melena : Denies: flank pain, difficulty urinating, dysuria, urinary frequency, urinary urgency, urinary hesitancy, urinary dribbling, difficulty starting urination, change in urine stream, nocturia or hematuria Musc: Denies: neck pain, back pain, extremity pain, joint pain, joint swelling, joint redness, joint stiffness or limited range of motion Neuro: Denies: headache(s), numbness in extremities, weakness in extremities, sensory changes, lack of coordination, difficulty walking, frequent falls, dizziness, vertigo, confusion, Slurred speech present, difficulty communicating thoughts or seizure-like activity Psych: Denies: anxiety, depression, mood swings, panic attacks, hopelessness or irritability Endo: Denies: polyuria, polydipsia, tired all the time, cold intolerance, excessive sweating, flushing or heat intolerance Yonathan/Lymph: Denies: easy bruising or easy bleeding All/Imm: Denies: tongue swelling, facial swelling or acute wheezing Medications/Allergies Home Medications Medication Instructions Recorded Confirmed Last Taken Type Super Tonic See Rx Instructions .Route .COMPLEX 05/23/21 02/24/23 Unknown History acetaminophen 500 mg tablet 500 mg PO PRN PRN Pain #0 tabs 05/24/21 02/24/23 Unknown Rx aspirin 81 mg tablet,delayed 81 mg PO DAILY #90 tabs 05/24/21 02/24/23 02/24/23 Rx release nitroglycerin 0.4 mg sublingual 0.4 mg sublingual Q5M PRN Chest 12/25/21 02/24/23 Unknown Rx tablet Pain #30 tabs clopidogrel 75 mg tablet 75 mg PO DAILY #90 tabs 03/28/22 02/24/23 02/24/23 Rx metoprolol tartrate 25 mg tablet 25 mg PO DAILY #90 tabs 06/12/22 02/24/23 02/24/23 Rx atorvastatin 40 mg tablet 40 mg PO BEDTIME #90 tabs 01/29/23 02/24/23 02/23/23 Rx buspirone 10 mg tablet 10 mg PO TID 02/24/23 02/24/23 02/23/23 History Allergies Allergy/AdvReac Type Severity Reaction Status Date / Time prednisone Allergy Severe K+ dropped Verified 06/26/22 14:28 to 2.5. lisinopril Allergy Unknown Unknown Verified 06/26/22 14:28 steroids Allergy Unknown Uncoded 06/26/22 14:28 PFSH Acute PFSH: Medical History (Updated 02/24/23 @ 16:25 by Davidson Ornelas MD) Atherosclerosis of coronary artery H/O: GI bleed Hyperlipidemia Hypertension Obesity Panic disorder ST elevation myocardial infarction (STEMI) STEMI (ST elevation myocardial infarction) Surgical History S/P right coronary artery (RCA) stent placement Social History Smoking and tobacco status: former smoker Alcohol intake: never Substance/Drug Use: never Vitals/I&O/Wt Last Vital Signs Temp 97.9 F 02/24/23 15:47 Pulse 71 02/24/23 15:47 Resp 17 02/24/23 15:47 BP 126/70 02/24/23 15:47 Pulse Ox 92 02/24/23 15:47 O2 Del Method Room Air 02/24/23 15:47 02/24/23 02/24/23 02/24/23 06:59 14:59 22:59 Intake Total 200 / 200 Balance 200 / 200 Weight last 48 hrs Weight 90.718 kg Physical Exam Narrative: General: No acute distress, AO x3, NC oxygen supplementation HEENT: PERRLA, pupils bilaterally equal and reactive Chest:Bronchial breath sounds b/l ,decreased air entry, equal good air entry bilaterally, no more fine basal crackles CVS: S1-S2 regular, no murmurs, no tachycardia, no gallops, no rubs Abdomen: Soft, nontender, no organomegaly, bowel sounds present, morbidly obese Neuro: No focal deficits, no facial deformity, AO x3, power 5/5 in all limbs Data 02/24/23 08:38 02/24/23 08:38 A&P Assessment and plan (1) Angina pectoris, unstable: Loaded with aspirin in the ER. History of CAD, post inferior wall WA 2 years ago and PCI. Compliant to medications. Check echocardiogram. Follow-up troponin cycle. Chest pain-free currently. Continue with aspirin, Plavix, statin, beta-wade. Lovenox at prophylactic dose for now given lack troponins. N.p.o. after midnight for Lexiscan in a.m. (2) Atherosclerosis of coronary artery: (3) Hypertension: Goal blood pressure less than 140/90 mmHg. Continue with metoprolol as above. Add ARB if blood pressure is elevated. (4) Panic disorder: Continue home medications Plan History of GI bleed. CODE STATUS: Discussed in detail. Wants to remain full code Cardiac diet, n.p.o. after midnight. Lovenox for DVT prophylaxis Protonix for PUD prophylaxis Attestations Medical Necessity Statement*: Admission under observation for chest pain under evaluation for a patient with history of CAD, post ST elevation [place], PCI Diagnoses Angina pectoris, unstable I20.0 Atherosclerosis of coronary artery I25.10 Hypertension I10 Panic disorder F41.0
--- NOTE | 2023-02-24 16:28 | USCV_ITS ---
Matthew Encinas Age: 58 Gender: M : 1965 Exam Date: 02/24/2023 16:59 Ordering Phys: Davidson Ornelas MD Technologist: Roscoe Dash Exam Location: [facility] [place] Indication: unstable angina BP: 126 / 70 HR: 68 Rhythm: Sinus Technical Quality: Adequate MEASUREMENTS (Male / Female) Normal Values 2D ECHO LVOT Diameter 2.0 cm LV Ejection Fraction MOD 2C 62.9 % LV Ejection Fraction 2C AL 63.2 % LA Diameter 3.5 cm LA Width 3.9 cm LA Height 5.6 cm RA Width 3.7 cm RA Height 5.4 cm Aorta at Sinotubular Diameter 2.2 cm IVC Diameter 1.9 cm M-MODE Aortic Annulus Diameter 2.6 cm LA Ao Ratio MM 1.5 MV E Point Septal Separation 0.5 cm DOPPLER AV Peak Velocity 134.3 cm/s LVOT Peak Velocity 113.0 cm/s AV Area Cont Eq vti 2.8 cm squared AV Area Cont Eq pk 2.7 cm squared MV Peak Velocity 107.0 cm/s MV Area PHT 5.0 cm squared Mitral E to A Ratio 1.3 MV E' Velocity 40.0 cm/s Mitral E to MV E' Ratio 5.1 Mitral E to LV E' Lateral Ratio 4.7 Mitral E to LV E' Septal Ratio 5.7 TR Peak Velocity 216.9 cm/s TR Peak Gradient 18.8 mmHg TR Mean Velocity 166.1 cm/s TR Mean Gradient 12.3 mmHg TR Velocity Time Integral 55.9 cm Right Atrial Pressure 3.0 mmHg Pulmonary Artery Systolic Pressu 21.8 mmHg PV Peak Velocity 82.0 cm/s RV Acceleration Time 0.2 s RV Ejection Time 0.3 s RV AcT/ET 0.6 FINDINGS Left Ventricle Left ventricle is normal in size. LV systolic function is normal with EF of 55-60%. No regional wall motion abnormalities are seen Right Ventricle Normal in size and function Right Atrium Normal in size Left Atrium Normal in size Mitral Valve Structurally normal mitral valve. Mild mitral regurgitation. Aortic Valve Structurally normal aortic valve. No significant stenosis. Tricuspid Valve Mild tricuspid regurgitation. Pulmonary artery systolic pressure is normal Pulmonic Valve Not well visualized Pericardium Normal Aorta Normal in size IVC Appears to be normal CONCLUSIONS LV systolic function is normal with EF of 55-60% Mild mitral regurgitation Mild tricuspid regurgitation Compared to prior echocardiogram from 2020, no significant changes are seen Hermelindo Zhao MD (Electronically Signed) Final Date: 25 February 2023 12:10 S
[2023-02-24 16:30] LABS: Troponin 5 6HR Delta 0 ng/L (0-12)
[2023-02-24] MEDS: enoxaparin 40 mg/0.4 mL Syringe SUBCUT (17:19)
--- NOTE | 2023-02-24 17:51 | PC.NURSE ---
Patient complained of no chest pain during day shift on floor.
[2023-02-24 19:32] LABS: Add Urine Microscopic? NO; Charge for UA Resulting for Rev
[2023-02-24 19:36] LABS: Bilirubin Urine Neg (Negative); Blood Urine Neg (Negative); Glucose Urine UA Norm (Normal); Ketones Urine Negative (Negative); Leukocyte Esterase Urine Negative (Negative); Nitrate Urine Negative (Negative); Protein Urine Neg (Negative); Urine Appearance Clear (CLEAR); Urine Color Colorless (Yellow); Urobilinogen Urine Neg (Negative); pH Urine 6 (5-7)
[2023-02-24] MEDS: atorvastatin 40 mg Tablet PO (20:31)
[2023-02-25] VITALS: BP 101/53; PULSE 74; RESP 16; TEMP 36.4; O2SAT 93
[2023-02-25 03:28] LABS: Basophils % 0.5 %; Eosinophils # 0.1 10^3/uL (0.0-0.8); Eosinophils % 1.5 %; Hematocrit 46.7 % (37-53); Lymphocytes # 2.9 10^3/uL (0.8-4.8); Lymphocytes % 35.5 %; Mean Corpuscular HGB Conc 33.2 g/dL (30-55); Mean Corpuscular Hemoglobin 32.5 pg (27-33); Mean Corpuscular Volume 97.9 fl (82-101); Mean Platelet Volume 10.2 fL (7.4-10.4); Monocytes # 0.8 10^3/uL (0.2-0.9); Monocytes % 9.9 %; Neutrophils # 4.22 10^3/uL (1.8-7.7); Neutrophils % 52.2 %; Nucleated Red Blood Cells % 0 %; Platelet Count 251 10^3/cmm (157-399); Red Blood Count 4.77 10^6/uL (3.85-5.65); Red Cell Distribution Width 13.2 % (12.1-15.1); White Blood Count 8.08 10^3/uL (3.29-11.43)
[2023-02-25 03:39] VITALS: BP 114/76; PULSE 66; RESP 20; TEMP 36.5; O2SAT 93
[2023-02-25 03:50] LABS: Cholesterol 97 mg/dL (0-200); HDL Cholesterol 44 mg/dL (60-100); LDL Cholesterol Calculated 39 mg/dL (50-129); LDL HDL Ratio 0.89 RATIO (0.00-3.22); Triglycerides 72 mg/dL (0-150)
[2023-02-25 03:55] LABS: Alanine Aminotransferase 33 U/L (0-41); Alkaline Phosphatase 61 U/L (40-130); Anion Gap 10.2 (5-19); Aspartate Amino Transferase 20 U/L (0-40); Blood Urea Nitrogen 21 mg/dL (6-20); Carbon Dioxide 29 mmol/L (22-29); Chloride 108 mmol/L (98-107); Globulin 2.6 g/dL (1.3-4.6); Glomerular Filtration Rate 56.9 mL/min (90-130); Glucose 94 mg/dL (65-115); Osmolality Calculated 299 mOsm/kg (285-295); Phosphorus 3.7 mg/dL (2.5-4.5); Potassium 4.2 mmol/L (3.5-5.1); Sodium 143 mmol/L (136-145); Total Bilirubin 0.5 mg/dL (0.15-1.2); Total Protein 6.6 g/dL (6.6-8.7)
[2023-02-25 03:59] LABS: Estmated Average Glucose 114; Hemoglobin A1C 5.6 % (4.0-6.0)
[2023-02-25 04:04] LABS: Folate Level 13.7 ng/mL (4.5-32.2)
[2023-02-25 04:30] VITALS: PULSE 57
[2023-02-25 07:29] VITALS: BP 117/66; PULSE 86; RESP 15; TEMP 36.6; O2SAT 95
[2023-02-25] MEDS: pantoprazole DR 40 mg Tablet PO (09:43)
[2023-02-25] MEDS: metoprolol tartrate 25 mg Tablet PO (09:43)
[2023-02-25] MEDS: aspirin 81 mg EC Tablet PO (09:43)
[2023-02-25] MEDS: clopidogrel 75 mg Tablet PO (09:43)
[2023-02-25] MEDS: BuSPIRONE 10 mg Tablet PO (09:43)
--- NOTE | 2023-02-25 10:31 | PC.CHAP ---
Pastoral Care Encounter/Spiritual Assessment Type of Contact [] Declined plant taxonomist visit [] Patient/Family/Request visit [] Outpatient visit [] Follow-up visit [] Physician referral [] Code/Alert [x] Routine visit [] Staff referral [] Actively dying [] Patient sleeping [] Family support [] [] Out of room [] Palliative care [] [x] Receiving care in room [] Pre-surgical visit [] Trauma [] Long length of stay [] ICU visit [] Other: Relational/Emotional Strength [] Patient feels connected with others/family/visitors/staff [] Distress [] Loneliness/isolation [] Abandonment Spirituality of Patient [] Person of Deepthi [] Attends Jewish of their Deepthi [] Believes in Prayer [] Reads Bible or Amish materials [] There are Spiritual issues to be addressed Back Maker Interventions [] Prayer [] Active listening [] Non-anxious presence [] Spiritual/emotional support [] Crisis/trauma care [] Spiritual counseling [] Bereavement support [] Provided bereavement packet [] Provided Bible/devotional materials [] Provided toy/stuffed animal, coloring book to patient or family member [] Provided Communion [] Anointing/[place] [] Salvation [] Completed spiritual assessment [] Other: Impact on Illness or Injury [] Angry [] Fearful [] Anxious [] Often cries [] Exhaustion [] Unable to work [] Unable to attend lutheran [] Unable to walk/stand [] Unable to read [] Unable to drive [] Unable to eat/drink [] Unable to sleep [] Unable to be with family [] Patient intubated [] Other: Summary Time spent with patient
[2023-02-25 11:37] VITALS: BP 102/58; PULSE 63; RESP 21; TEMP 36.5; O2SAT 94
--- NOTE | 2023-02-25 13:47 | PM.DCS ---
Discharge Providers Date of Admission: 02/24/23 13:13 Date of Discharge: February 25, 2023 Attending Provider at Admission: Davidson Ornelas MD Attending Provider at Discharge: Luis Purcell MD Diagnoses at Discharge Discharge Diagnosis (1) Angina pectoris, unstable: Status: Acute (2) Atherosclerosis of coronary artery: Status: Acute (3) Hypertension: Status: Acute (4) Panic disorder: Status: Acute Reason for Visit Reason for Visit: CP Hospital Course Hospital Course Matthew Encinas is a 58-year-old male with past medical history significant for coronary artery disease with prior STEMI requiring PCI with stent to RCA, hyperlipidemia, hypertension, and anxiety who presented to the emergency department with left-sided chest pain concerning for unstable angina. Patient was admitted for acute coronary syndrome rule out. Serial troponins were obtained and found to be negative. EKG was negative for acute ischemic changes. Acute coronary syndrome was considered but ultimately ruled out. Echocardiogram showed normal LVEF of 55 to 60% with mild mitral and tricuspid regurgitation. There were no significant echocardiographic changes as compared to his echo in 2020. He remained symptom-free throughout his hospitalization. He was discharged home in stable condition. He is to follow-up later this week for an outpatient stress test. Physical Exam Narrative: General: Patient is awake and alert. Very pleasant. Head: Normocephalic. Atraumatic. EOM intact. Poor dentition. Neck: No JVD. Cardiovascular: RRR. No gallops. No murmurs. Lungs: Clear to auscultation, no use of accessory muscles, no crackles or wheezes. Skin: No jaundice. No rashes. Abdomen: Normal bowel sounds, abdomen soft and nontender. Extremities: No cyanosis or clubbing. Musculoskeletal: No swollen or erythematous joints. Neurological: Moves all 4 extremities. No myoclonus. Discharge Data Studies Completed and Pending Completed Studies During Hospitalization Category Date Time Status XR chest 1V portable [id number] Stat Exams 02/24/23 08:35 Completed CV. echo complete* [id number] Routine Ultrasound 02/24/23 16:28 Completed Pending at discharge Category Date Time Status Sestamibi Stress Test Request Routine Exams 02/25/23 08:10 Ordered NM anna perf SPECT r/s* [id number] Routine Nuc Med 02/26/23 08:00 Ordered Radiology Impressions Chest X-Ray 02/24/23 08:35 IMPRESSION: No acute cardiopulmonary abnormality identified. Laboratory Results WBC 8.08 10^3/uL (3.29-11.43) 02/25/23 03:18 RBC 4.77 10^6/uL (3.85-5.65) 02/25/23 03:18 Hgb 15.50 g/dL (11.27-16.99) 02/25/23 03:18 Hct 46.7 % (37-53) 02/25/23 03:18 MCV 97.9 fl (82-101) 02/25/23 03:18 MCH 32.5 pg (27-33) 02/25/23 03:18 MCHC 33.2 g/dL (30-55) 02/25/23 03:18 RDW 13.2 % (12.1-15.1) 02/25/23 03:18 Plt Count 251 10^3/cmm (157-399) 02/25/23 03:18 MPV 10.2 fL (7.4-10.4) 02/25/23 03:18 Neut % (Auto) 52.2 % 02/25/23 03:18 Lymph % (Auto) 35.5 % 02/25/23 03:18 [place] % (Auto) 9.9 % 02/25/23 03:18 Eos % (Auto) 1.5 % 02/25/23 03:18 Baso % (Auto) 0.5 % 02/25/23 03:18 Neut # (Auto) 4.22 10^3/uL (1.8-7.7) 02/25/23 03:18 Lymph # (Auto) 2.9 10^3/uL (0.8-4.8) 02/25/23 03:18 [place] # (Auto) 0.8 10^3/uL (0.2-0.9) 02/25/23 03:18 Eos # (Auto) 0.1 10^3/uL (0.0-0.8) 02/25/23 03:18 Baso # (Auto) 0.0 10^3/uL (0.0-0.1) 02/25/23 03:18 Nucleated RBC % (auto) 0 % 02/25/23 03:18 Nucleated RBCs # 0.0 /100WBC 02/25/23 03:18 Sodium 143 mmol/L (136-145) 02/25/23 03:18 Potassium 4.2 mmol/L (3.5-5.1) 02/25/23 03:18 Chloride 108 mmol/L (98-107) H 02/25/23 03:18 Carbon Dioxide 29 mmol/L (22-29) 02/25/23 03:18 Anion Gap 10.2 (5-19) 02/25/23 03:18 BUN 21 mg/dL (6-20) H 02/25/23 03:18 Creatinine 1.3 mg/dL (0.7-1.2) H 02/25/23 03:18 GFR Calculation 56.9 mL/min (90-130) L 02/25/23 03:18 Glucose 94 mg/dL (65-115) 02/25/23 03:18 Estimat Average Glucose 114 02/25/23 03:18 Hemoglobin A1c 5.6 % (4.0-6.0) 02/25/23 03:18 Calculated Osmolality 299 mOsm/kg (285-295) H 02/25/23 03:18 Calcium 9.0 mg/dL (8.5-10.5) 02/25/23 03:18 Phosphorus 3.7 mg/dL (2.5-4.5) 02/25/23 03:18 Magnesium 2.0 mg/dL (1.7-2.3) 02/25/23 03:18 Iron 90 ug/dL (59-158) 02/24/23 10:28 TIBC 286 mcg/dl 02/24/23 10:28 % Saturation 31.4 % (20-50) 02/24/23 10:28 Unsat Iron Binding 196 ug/dL (112-347) 02/24/23 10:28 Total Bilirubin 0.5 mg/dL (0.15-1.2) 02/25/23 03:18 AST 20 U/L (0-40) 02/25/23 03:18 ALT 33 U/L (0-41) 02/25/23 03:18 Alkaline Phosphatase 61 U/L (40-130) 02/25/23 03:18 Troponin T Baseline 6 ng/L (0-15) 02/24/23 08:38 Troponin T 120 Minute 6.35 ng/L (0-15) 02/24/23 10:28 Delta Troponin T 0.35 ABS# (0-10) 02/24/23 10:28 Troponin T Hi Sens 6Hr 6.00 ng/L (0-15) 02/24/23 14:44 Troponin T Hi Sens 6Hr Delta 0 ng/L (0-12) 02/24/23 14:44 Total Protein 6.6 g/dL (6.6-8.7) 02/25/23 03:18 Albumin 4.0 g/dL (3.5-5.2) 02/25/23 03:18 Globulin 2.6 g/dL (1.3-4.6) 02/25/23 03:18 Triglycerides 72 mg/dL (0-150) 02/25/23 03:18 Cholesterol 97 mg/dL (0-200) 02/25/23 03:18 LDL Cholesterol, Calc 39 mg/dL (50-129) L 02/25/23 03:18 HDL Cholesterol 44 mg/dL (60-100) L 02/25/23 03:18 LDL/HDL Ratio 0.89 RATIO (0.00-3.22) 02/25/23 03:18 Cholesterol/HDL Ratio 2.20 mg/dL (1.0-5.00) 02/25/23 03:18 Vitamin B12 450 pg/mL (232-1245) 02/24/23 10:28 Folate 13.7 ng/mL (4.5-32.2) 02/25/23 03:18 Procalcitonin 0.05 ng/mL (0-0.5) 02/24/23 10:28 TSH 1.51 uIU/mL (0.27-4.20) 02/24/23 10:28 Urine Color Colorless (Yellow) 02/24/23 19:19 Urine Appearance Clear (CLEAR) 02/24/23 19:19 Urine pH 6 (5-7) 02/24/23 19:19 Ur Specific [place] 1.010 (1.005-1.030) 02/24/23 19:19 Urine Protein Neg (Negative) 02/24/23 19:19 Urine Glucose (UA) Norm (Normal) 02/24/23 19:19 Urine Ketones Negative (Negative) 02/24/23 19:19 Urine Blood Neg (Negative) 02/24/23 19:19 Urine Nitrate Negative (Negative) 02/24/23 19:19 Urine Bilirubin Neg (Negative) 02/24/23 19:19 Urine Urobilinogen Neg mg/dL (Negative) 02/24/23 19:19 Ur Leukocyte Esterase Negative (Negative) 02/24/23 19:19 Procedures Performed None Vitals Last Vital Signs Temp 97.7 F 02/25/23 11:37 Pulse 63 02/25/23 11:37 Resp 21 H 02/25/23 11:37 BP 102/58 02/25/23 11:37 Pulse Ox 94 02/25/23 11:37 O2 Del Method Room Air 02/25/23 11:37 Discharge Plan Discharge Patient Disposition: Home Condition: Stable Prescriptions: Continued atorvastatin 40 mg tablet 40 mg PO BEDTIME Qty: 90 2RF nitroglycerin 0.4 mg tablet, sublingual 0.4 mg sublingual Q5M PRN (Reason: Chest Pain) Qty: 30 2RF clopidogrel 75 mg tablet 75 mg PO DAILY Qty: 90 3RF metoprolol tartrate 25 mg tablet 25 mg PO DAILY Qty: 90 2RF Super Tonic See Rx Instructions .ROUTE .COMPLEX Rx Instructions: one dropperful po as needed aspirin 81 mg Tablet,Delayed Release (Dr/Ec) 81 mg PO DAILY Qty: 90 3RF acetaminophen 500 mg Tablet 500 mg PO PRN PRN (Reason: Pain) Qty: 0 0RF buspirone 10 mg Tablet 10 mg PO TID Discharge Orders: Discharge Order (Routine); Ordered 02/25/23 Ordered By: Luis Purcell Other Ambulatory Orders: Sestamibi Stress Test Request (Routine) Timeframe: 3 Days Facility: [facility] - Location: Cardiac Diagnostic Laboratory Ordered By: Luis Purcell NM anna perf SPECT r/s* [id number] (Routine) Timeframe: 3 Days Facility: [facility] - Location: Radiology Ordered By: Luis Purcell Referrals: Lucía Vo FNP [Nurse Practitioner] - 1 week ([facility] will call you to set up an appointment to see nurse practioner Lucía Vo. If you do not hear from them by Monday 02/26, please call them at [phone].) Discharge Diet: Advance as tolerated, Usual diet and Cardiac Discharge Activity: Limit activity as instructed and Return to work/school after cleared by PCP/Specialist Patient Instructions: Chest Pain (DC), Cardiac Stress Test (GEN), Nuclear Stress Test (GEN), Opioid Safety Activity Restrictions/Additional Instructions: 1. Do not consider strenuous activity until after stress test results. 2. Take medications as prescribed. Discharge Attestations Time Spent in Discharge Care*: greater than 30 min Quality Metrics Clinical Quality Measures [ No reported AMI, CVA or VTE this stay] Coding Level of Care Code Acute Code for Chg Fwd Diagnoses Angina pectoris, unstable I20.0 Atherosclerosis of coronary artery I25.10 Hypertension I10 Panic disorder F41.0
[2023-02-25 14:00] VITALS: BP 102/58; PULSE 63; RESP 21; TEMP 36.5; O2SAT 94
== END 2023-02-25 14:15 | disposition home or self-care (01) ==
LOC: ER 11:50 → CSU 13:03
PROVIDERS: Admitting Provider Student in an Organized Health Care Education/Training Program; Emergency Provider Family Medicine; Visit Provider Internal Medicine
DX: I25.110 Atherosclerotic heart disease of native coronary artery with unstable angina pectoris (principal); I10 Essential (primary) hypertension; F41.0 Panic disorder [episodic paroxysmal anxiety]; E78.5 Hyperlipidemia, unspecified; E66.9 Obesity, unspecified; Z68.31 Body mass index [BMI] 31.0-31.9, adult; I25.2 Old myocardial infarction; Z87.891 Personal history of nicotine dependence; I34.0 Nonrheumatic mitral (valve) insufficiency; I07.1 Rheumatic tricuspid insufficiency
CPT/HCPCS: 36415; 71045; 80053; 80061; 81003; 82607; 82746; 83036; 83540; 83550; 83735; 84100; 84145; 84443; 84484; 85025; 93005; 93306; 94664; 96372; 99285; G0378; J1650

== ENCOUNTER 2023-02-28 08:28 | Outpatient (CLI) | payer OTHER, SELFPAY ==
[2023-02-28 08:46] VITALS: BMI 31.8
--- NOTE | 2023-02-28 08:51 | ECG_ITS ---
[facility] Test Date: 2023-02-28 Pat Name: Matthew Encinas Department: Room: Gender: Male [employer] Architect: : 1965 Requested By: Luis Espinoza Order Number: [id number] Mao MD: Hermelindo Zhao M.D. Interpretive Statements NAME OF STUDY: EXERCISE SESTAMIBI STRESS TEST INDICATION: [Chest Pain] EXERCISE DATA: The patient was exercised by Jasmeet protocol. Baseline heart rate was 84 beats per minute. Baseline blood pressure was 116/73 millimeters of mercury. Target heart rate was 138 beats per minute. Maximum heart rate achieved was 163, which was 118% of the target heart rate. Maximum blood pressure was 206/45 millimeters of mercury. Total exercise time was 7 minutes and 17 seconds. Maximum METs achieved was 10.2.The reason for ending the test was completion of protocol. The patient complained of shortness of breath during the stress test, which then resolved at the end of the test. ELECTROCARDIOGRAM: BASELINE: Showed sinus rhythm, normal axis, no significant ST-T changes at the baseline noted. [] EXERCISE: At the peak exercise level, [] No significant ST-T changes suggestive of ischemia noted. [] RECOVERY: During the recovery period, heart rate dropped appropriately. No significant ST-T changes in the recovery suggestive of ischemia noted. [] CONCLUSION: 1. Exercise capacity []. 2. Heart rate response was [appropriate]. 3. Blood pressure response was [appropriate]. 4. Symptoms not suggestive of ischemia. 5. Electrocardiogram portion of the stress test was not suggestive of ischemia. 6. Nuclear scan will be documented separately. Electronically Signed On 03-12-2023 11:04:36 CDT by Hermelindo Zhao M.D. [id number]
--- NOTE | 2023-02-28 08:51 | NMCV_ITS ---
2. Matthew Encinas Age: 58 Gender: M : 1965 Exam Date: 02/28/2023 08:51 Ordering Phys: Luis Purcell MD Technologist: BRAYDEN Cunha Exam Location: [facility] Indications: UNSTABLE ANGINA STRESS TEST Please see separate stress test report in [facility] for full findings IMAGE PROTOCOL Rest/Stress 1 Exercise Day Radiopharmaceutical Dose (mCi) Administration Site Administered by Rest: Tc-99m 10.7 IV BRAYDEN Acuna Sestamibi Stress:Tc-99m 32.5 IV BRAYDEN Cunha Sestamimadison Rest: 28-Feb-2023 60 Discovery 630 Stress: 28-Feb-2023 15 Discovery 630 Radiopharmaceutical was injected at 92 % maximum heart rate. Images obtained in supine and prone position. SPECT RESULTS Technical Quality: Excellent Raw Data Analysis: Normal Image Corrections: No attenuation or motion correction applied Summed Stress Score: 0 Summed Rest Score: 0 Summed Difference Score: 0 PERFUSION FINDINGS SPECT images demonstrate homogeneous tracer distribution throughout the myocardium. FUNCTIONAL RESULTS (calculated via Gated SPECT) Stress Image LV EF (%): 81 Stress EDV (mL):67 TID: 0.65 Stress ESV (mL):13 FUNCTIONAL FINDINGS: There is normal left ventricular systolic function. IMPRESSIONS 1. Normal myocardial perfusion imaging with no evidence of ischemia 2. LV systolic function is normal Hermelindo Zhao MD (Electronically Signed) Final Date: 28 February 2023 14:40 S
[2023-02-28 11:52] VITALS: BP 144/65; PULSE 82
== END 2023-02-28 08:29 | disposition home or self-care (01) ==
LOC: CDL 08:28
PROVIDERS: PCP Family Medicine; Visit Provider Internal Medicine
DX: R07.9 Chest pain, unspecified (principal)
CPT/HCPCS: 36415; 78452; 93017; 96374; A9500

== ENCOUNTER → 2023-07-26 09:42 | Outpatient (BNVA) | payer OTHER, SELFPAY | PROVIDERS: PCP Family Medicine; Visit Provider Internal Medicine Cardiovascular Disease | DX: I25.10 Atherosclerotic heart disease of native coronary artery without angina pectoris (principal); Z72.0 Tobacco use; E78.5 Hyperlipidemia, unspecified; I10 Essential (primary) hypertension; E66.9 Obesity, unspecified; Z68.33 Body mass index [BMI] 33.0-33.9, adult; Z95.5 Presence of coronary angioplasty implant and graft; I25.2 Old myocardial infarction | CPT/HCPCS: 99214 ==

== ENCOUNTER 2023-09-02 09:36 | Emergency (ER) | payer OTHER, SELFPAY ==
[2023-09-02 09:54] VITALS: BP 121/77; PULSE 72; RESP 14; TEMP 36.6; O2SAT 96; BMI 32.4
--- NOTE | 2023-09-02 10:03 | USCV_ITS ---
Matthew Encinas Age: 58 Gender: M : 1965 Exam Date: 09/02/2023 10:04 Ordering Phys: Matthew Irizarry DO Technologist: ANTELMO [place] [facility] [place]ication: LE Pain HISTORY: Lower extremity pain. PROCEDURES: Venous duplex imaging was performed in bilateral lower extremities. In addition, the posterior tibial and peroneal trunk were evaluated. Serial compression, augmentation maneuvers, and spectral Doppler flow evaluation were performed. FINDINGS: No evidence of DVT seen in any vessel visualized at this time. CONCLUSIONS No evidence of right lower extremity DVT. No evidence of left lower extremity DVT. Frank Ruiz MD (Electronically Signed) Final Date: 02 September 2023 11:57 S
[2023-09-02 10:36] LABS: Basophils # 0.1 10^3/uL (0.0-0.1); Basophils % 0.7 %; Eosinophils # 0.1 10^3/uL (0.0-0.8); Eosinophils % 1.3 %; Lymphocytes # 1.8 10^3/uL (0.8-4.8); Lymphocytes % 21.4 %; Mean Corpuscular HGB Conc 34.8 g/dL (30-55); Mean Corpuscular Hemoglobin 33.4 pg (27-33); Mean Platelet Volume 10.2 fL (7.4-10.4); Monocytes # 0.9 10^3/uL (0.2-0.9); Monocytes % 10.3 %; Neutrophils # 5.53 10^3/uL (1.8-7.7); Neutrophils % 65.8 %; Nucleated Red Blood Cells % 0 %; Platelet Count 318 10^3/cmm (157-399); Red Cell Distribution Width 12.8 % (12.1-15.1); White Blood Count 8.41 10^3/uL (3.29-11.43)
[2023-09-02 10:47] LABS: Alanine Aminotransferase 38 U/L (0-41); Albumin Level 4.4 g/dL (3.5-5.2); Alkaline Phosphatase 69 U/L (40-130); Anion Gap 14.7 (5-19); Aspartate Amino Transferase 23 U/L (0-40); Blood Urea Nitrogen 19 mg/dL (6-20); Calcium 9.3 mg/dL (8.5-10.5); Carbon Dioxide 25 mmol/L (22-29); Chloride 104 mmol/L (98-107); Glomerular Filtration Rate 52.2 mL/min (90-130); Glucose 91 mg/dL (65-115); Osmolality Calculated 290 mOsm/kg (285-295); Potassium 4.7 mmol/L (3.5-5.1); Sodium 139 mmol/L (136-145); Total Bilirubin 0.3 mg/dL (0.15-1.2); Total Protein 7.4 g/dL (6.6-8.7)
[2023-09-02 10:54] LABS: Procalcitonin 0.04 ng/mL (0-0.5)
--- NOTE | 2023-09-02 10:55 | PC.PHAR ---
PT STATES HE TAKES CARE OF HIS OWN MEDICATIONS-PT STATES HE TAKES ASPIRIN 81MG THREE TIMES A WEEK PT STATES HE IS SUPPOSE TO BE TAKING DAILY-PT STATES HE TAKES LIPITOR 40MG Q7D PT STATES SUPPOSE TO BE TAKING DAILY BUT STATES HE GETS JOINT PAIN SO TAKES ONCE A WEEK-
--- NOTE | 2023-09-02 11:15 | W.ED.EXTPRO ---
HPI - Extremity Problem General: Chief complaint: Extremity Injury, Lower Stated complaint: leg pain and redness Time Seen by Provider: 09/02/23 10:03 Source: patient Mode of arrival: ambulatory History of Present Illness: 58-year-old male presents emergency room with bilateral lower extremity leg pain for the last 2 weeks. [facility] was [facility] and topical diclofenac which she was applying to his knees he had increased swelling is also developed some stretch rasmussen on the skin. He denies any chest pain or shortness of breath no fever sweats or chills. MD Complaint: extremity pain and extremity swelling Onset (ago): week(s) (2) Pain Consistency: constant Location: left, right and lower extremity Quality: aching Radiation: none Relieving factors: nothing Exacerbating factors: weight bearing, walking and palpation Associated symptoms: Deny arthralgias, chest pain, fever(s), myalgias, rash or short of breath Review of Systems Const: Denies: fever(s) or chills Card: Denies: chest pain Resp: Denies: dyspnea GI: Denies: abdominal pain : Denies: dysuria, urinary frequency or urinary urgency Musc: Denies: neck pain or back pain Skin/Breast: Denies: rash PFSH ED PFSH: Medical History Panic disorder Hypertension Obesity Hyperlipidemia Atherosclerosis of coronary artery ST elevation myocardial infarction (STEMI) STEMI (ST elevation myocardial infarction) H/O: GI bleed Surgical History S/P right coronary artery (RCA) stent placement Social History Smoking and tobacco/nicotine status: former use of tobacco/nicotine Alcohol intake: never Substance/Drug Use: never Physical Exam Const: GENERAL APPEARANCE: cooperative and comfortable ORIENTATION/CONSCIOUSNESS: Yes awake, Yes oriented to person, Yes oriented to place and Yes oriented to time HENMT: COMMON NORMALS: normocephalic, atraumatic and hearing grossly normal bilaterally HEAD & SCALP: normocephalic and atraumatic Resp: COMMON NORMALS: normal respiratory effort, No retractions, No use of accessory muscles and clear to auscultation bilaterally AUSCULTATION: clear to auscultation bilaterally Cardio: COMMON NORMALS: regular rate, regular rhythm and No murmurs present (Cardio) RATE: regular rate RHYTHM: regular rhythm GI: COMMON NORMALS: Soft to palpation and No hepatosplenomegaly present AUSCULTATION: Yes normoactive bowel sounds PALPATION: Yes Soft to palpation, No Tenderness to palpation present (GI), No Guarding due to palpation present (GI) and Yes No hepatosplenomegaly present Extremity: OTHER: 2+ edema lower extremities with some skin changes and skin texture due to tension of the skin from the edema Neuro: SENSORIUM/ORIENTATION: Yes oriented to person, Yes oriented to place and Yes oriented to time Skin: COMMON NORMALS: no rashes or lesions noted GENERAL SKIN EXAM: no rashes or lesions noted Course Vital Signs: Vital signs: Vital Signs Temperature 97.9 F 09/02/23 09:54 Pulse Rate 75 09/02/23 11:27 Respiratory Rate 18 09/02/23 11:27 Blood Pressure 120/73 09/02/23 11:27 Pulse Oximetry 96 09/02/23 11:27 Oxygen Delivery Me thod Room Air 09/02/23 11:27 MDM - Extremity (Nontraumatic) Medical Decision Making Clinical there is no sign of cystitis venous duplex is negative for DVT discharge patient home started on Lasix twice daily he needs to follow-up toward the end of the week with his primary care doctor for repeat BMP. His creatinine is slightly elevated today and we are starting him on Lasix this will need to be monitored closely. Try to elevate legs whenever is possible. Medical Records I reviewed the patient's medical records. Lab Data I reviewed the patient's lab results. 09/02/23 10:15 09/02/23 10:15 Laboratory Results WBC 8.41 10^3/uL (3.29-11.43) 09/02/23 10:15 RBC 5.00 10^6/uL (3.85-5.65) 09/02/23 10:15 Hgb 16.70 g/dL (11.27-16.99) 09/02/23 10:15 Hct 48.0 % (37-53) 09/02/23 10:15 MCV 96.0 fl (82-101) 09/02/23 10:15 MCH 33.4 pg (27-33) H 09/02/23 10:15 MCHC 34.8 g/dL (30-55) 09/02/23 10:15 RDW 12.8 % (12.1-15.1) 09/02/23 10:15 Plt Count 318 10^3/cmm (157-399) 09/02/23 10:15 MPV 10.2 fL (7.4-10.4) 09/02/23 10:15 Neut % (Auto) 65.8 % 09/02/23 10:15 Lymph % (Auto) 21.4 % 09/02/23 10:15 [place] % (Auto) 10.3 % 09/02/23 10:15 Eos % (Auto) 1.3 % 09/02/23 10:15 Baso % (Auto) 0.7 % 09/02/23 10:15 Neut # (Auto) 5.53 10^3/uL (1.8-7.7) 09/02/23 10:15 Lymph # (Auto) 1.8 10^3/uL (0.8-4.8) 09/02/23 10:15 [place] # (Auto) 0.9 10^3/uL (0.2-0.9) 09/02/23 10:15 Eos # (Auto) 0.1 10^3/uL (0.0-0.8) 09/02/23 10:15 Baso # (Auto) 0.1 10^3/uL (0.0-0.1) 09/02/23 10:15 Nucleated RBC % (auto) 0 % 09/02/23 10:15 Nucleated RBCs # 0.0 /100WBC 09/02/23 10:15 Sodium 139 mmol/L (136-145) 09/02/23 10:15 Potassium 4.7 mmol/L (3.5-5.1) 09/02/23 10:15 Chloride 104 mmol/L (98-107) 09/02/23 10:15 Carbon Dioxide 25 mmol/L (22-29) 09/02/23 10:15 Anion Gap 14.7 (5-19) 09/02/23 10:15 BUN 19 mg/dL (6-20) 09/02/23 10:15 Creatinine 1.4 mg/dL (0.7-1.2) H 09/02/23 10:15 GFR Calculation 52.2 mL/min (90-130) L 09/02/23 10:15 Glucose 91 mg/dL (65-115) 09/02/23 10:15 Calculated Osmolality 290 mOsm/kg (285-295) 09/02/23 10:15 Calcium 9.3 mg/dL (8.5-10.5) 09/02/23 10:15 Total Bilirubin 0.3 mg/dL (0.15-1.2) 09/02/23 10:15 AST 23 U/L (0-40) 09/02/23 10:15 ALT 38 U/L (0-41) 09/02/23 10:15 Alkaline Phosphatase 69 U/L (40-130) 09/02/23 10:15 Total Protein 7.4 g/dL (6.6-8.7) 09/02/23 10:15 Albumin 4.4 g/dL (3.5-5.2) 09/02/23 10:15 Globulin 3.0 g/dL (1.3-4.6) 09/02/23 10:15 Procalcitonin 0.04 ng/mL (0-0.5) 09/02/23 10:15 All radiology interpretation(s) finalized by discharge Discharge Plan Discharge Patient Disposition: Home Clinical Impression: Leg edema Condition: Stable Prescriptions: New Lasix 20 mg tablet 20 mg PO DAILY Qty: 10 0RF No Action olanzapine 5 mg tablet 5 mg PO BEDTIME Super Tonic See Rx Instructions .ROUTE .COMPLEX Rx Instructions: one dropperful po as needed buspirone 10 mg Tablet 10 mg PO TID atorvastatin 40 mg tablet 40 mg PO Q7D aspirin 81 mg tablet,delayed release (DR/EC) 81 mg PO .THREE TIMES A WEEK metoprolol succinate 50 mg Tablet Extended Release 24 Hr 25 mg PO QAM Aleve 220 mg Tablet 440 mg PO DAILY PRN (Reason: Pain) Nitrostat 0.4 mg Tablet, Sublingual 0.4 mg SUBLINGUAL Q5M PRN (Reason: Chest Pain) Rx Instructions: do not exceed 3 doses per episode Voltaren Arthritis Pain 1 % Gel 2 - 4 g TOPICAL DAILY PRN (Reason: Pain) clopidogrel 75 mg tablet 75 mg PO QAM Discharge Orders: Discharge ED (Routine); Ordered 03/04/24 Ordered By: Matthew Irizarry Referrals: Cherie Tracy MD [Primary Care Provider] - Discharge Diet: Usual diet Discharge Activity: Increase activity as tolerated Patient Instructions: Opioid Safety, Pain Management Activity Restrictions/Additional Instructions: Thank you for choosing [facility] for your healthcare needs today. Please realize this is an emergency room and that we are providing you with a medical screening exam and this may not be complete and all inclusive of all the testing and or work up that you may need to determine your ailment or severity of your illness. It is very important that you follow up as instructed or that you return to the Emergency Department should you have concerns or if your condition changes or worsens in any way. You are seen today for swelling in your legs. There is no sign of DVT. There is no sign of infection. You have a slight increase in your creatinine that should be monitored closely. Recommend to start on low-dose Lasix 20 mg once a day recheck your kidney function electrolytes in the next 3 to 4 days. You may need further evaluation of your kidneys as an outpatient basis. Coding Level of Care Code ED Master H[employer] Technician for Sophia Ordoñez
[2023-09-02 11:27] VITALS: BP 120/73; PULSE 75; RESP 18; O2SAT 96
== END 2023-09-02 13:48 | disposition home or self-care (01) ==
PROVIDERS: Emergency Provider Family Medicine; PCP Family Medicine
DX: R60.0 Localized edema (principal); Z79.02 Long term (current) use of antithrombotics/antiplatelets; Z79.82 Long term (current) use of aspirin; I10 Essential (primary) hypertension; E78.5 Hyperlipidemia, unspecified; I25.10 Atherosclerotic heart disease of native coronary artery without angina pectoris; I25.2 Old myocardial infarction; Z87.891 Personal history of nicotine dependence
CPT/HCPCS: 36415; 80053; 84145; 85025; 93970; 99284

== ENCOUNTER → 2024-01-23 12:04 | Outpatient (BNVA) | payer OTHER, SELFPAY | PROVIDERS: PCP Family Medicine; Visit Provider Internal Medicine Cardiovascular Disease | DX: I25.10 Atherosclerotic heart disease of native coronary artery without angina pectoris (principal); Z72.0 Tobacco use; Z95.5 Presence of coronary angioplasty implant and graft; E78.5 Hyperlipidemia, unspecified; I10 Essential (primary) hypertension; I25.2 Old myocardial infarction | CPT/HCPCS: 99213 ==

== ENCOUNTER 2025-01-15 07:09 | Emergency (ER) | payer OTHER, SELFPAY ==
--- OUTSIDE RECORDS SUMMARY | 2024-07-28 03:30 | XMS_ITS | Encounter Summary ---
Author Name [facility] Organization [facility] [place] Address [address] [place] [id number] Care Team Providers Care Dedicated Owner Operator Name Role Phone CHERIE TRACY Primary Care Provider Unavailabl e Selected Encounter This section includes the information on record at [place] for the Encounter. Date/Time Encounter Type Encounter Description Reason Provider Source Jul 28, 2024 08:30 AM OFFICE O/P EST MOD 30 MIN PRIMARY CARE/MEDICINE ICD-10-CM I25.10 Athscl heart disease of [place] coronary artery w/o fuad pctCHERIE Keys IHRadha Encounter Template Text not used by [place] Assessments - Encounter Diagnoses This section includes the primary and secondary diagnoses documented for the Encounter. Date/Time Primary/Secondary Diagnosis Diagnosis Name Provider Source Jul 29, 2024 08:26 AM PRIMARY Athscl heart disease of [place] coronary artery w/o BRENT PedrazaMY [facility] Jul 29, 2024 08:26 AM SECONDARY Bilateral primary osteoarthritis of knee KIKACHERIE [facility] Jul 29, 2024 08:26 AM SECONDARY Chronic peptic ulcer, site unsp, w/o hemorrhage or perf KIKA,CHERIE [facility] Jul 29, 2024 08:26 AM SECONDARY Dental caries, unspecified KIKA,CHERIE [facility] Jul 29, 2024 08:26 AM SECONDARY Gout, unspecified KIKA,CHERIE [facility] Jul 29, 2024 08:26 AM SECONDARY Insomnia, unspecified KIKA,CHERIE [facility] Jul 29, 2024 08:26 AM SECONDARY Irritable bowel syndrome, unspecified KIKA,CHERIE [facility] Jul 29, 2024 08:26 AM SECONDARY Obesity, unspecified [facility] Jul 29, 2024 08:26 AM SECONDARY Polyp of colon [facility] Jul 29, 2024 08:26 AM SECONDARY Pure hypercholesterolemia , unspecified [facility] Jul 29, 2024 08:26 AM SECONDARY Vitamin D deficiency, unspecified [facility]ERIE [facility] Plan of Treatment: Future Appointments (+ 6 months) and Future Tests (+/- 45 days) The Plan of Treatment section includes future care activities for the patient from all [place] treatmentfacilities. This section includes future appointments and future orders which are active, pending or scheduled. Future Appointments This section includes appointments that were scheduled to occur 6 months from the date of the Encounter, up to a maximum of 20 appointments. The data comes from all [place] treatment facilities. Appointment Date/Time Appointment Type Appointme nt Facility Name Sep 07, 2024 08:45 AM AMBULATORY - MEDICINE [facility] Sep 28, 2024 09:00 AM AMBULATORY - MEDICINE [facility] Dec 07, 2024 01:00 PM AMBULATORY - MEDICINE [facility] Dec 14, 2024 12:45 PM AM[facility]UL[facility]ORY - MEDICINE [place] [facility] Dec 21, 2024 11:30 AM AM[facility]ULATORY - MEDICINE [facility] Jan 04, 2025 10:30 AM AMBULATORY - MEDICINE [facility] 2025 12:15 PM AMBULATORY - MEDICINE [facility] 2025 01:00 PM AMBULATORY - MEDICINE [facility] Jan 11, 2025 11:30 AM AMBULATORY - MEDICINE [facility] Jan 21, 2025 11:00 AM AMBULATORY - MEDICINE [place] [facility] Lab Results: +/- 30 days of the encounter This section includes the Chemistry and Hematology Lab Results on record with [place] for the patient. Radiology Reports and Pathology Reports are provided separately, in subsequent sections. Lab Results This section contains the Chemistry/Hematology Results that were resulted 30 days before or 30 daysafter the date of the Encounter. Date/Time Source Result Type Result - Unit Interpretation Reference Range Specimen Type Comment Jul 22, 2024 08:18 AM [facility] PROST. SPECIFIC AG.(PB-STL) SERUM Specimen Ty pe: SERUM No comment entered. Ordering Provider: CHERIE TRACY Report Released Date/Time: Jul 22, 2024 08:17 AM Reporting Lab: [place] [facility] [address] [place] [address] Performing Lab: [place] [facility] [address] [place] [address] PROST. SPECIFIC AG.(PB-STL) 1.49 ng/mL 0 -4 Jul 22, 2024 08:18 AM [facility] VITAMIN D, 25-HYDROXY SERUM Specimen Type: SE RUM No comment entered. Ordering Provider: CHERIE TRACY Report Released Date/Time: Jul 22, 2024 08:17 AM Reporting Lab: [place] [facility] [address] [place] [address] Performing Lab: [place] [facility] [address] [place] [address] VITAMIN D, 25-HYDROXY 29.2 ng/mL L 30-96 Jul 22, 2024 08:18 AM [facility] HGA1C BLOOD Specimen Type: BLOOD No comment entered. Ordering Provider: CHERIE TRACY Report Released Date/Time: Jul 22, 2024 08:17 AM Reporting Lab: [place] [facility] [address] [place] [address] Performing Lab: [place] [facility] [address] [place] [address] HGA1C 5.8 4.0-6.0 Jul 22, 2024 08:18 AM [facility] COMPREHENSIVE METABOLIC PANEL PLASMA Specimen Type: PLASMA Comment: LDL calculation invalid when Triglyceride exceeds 250 mg/dl Ordering Provider: CHERIE TRACY Report Released Date/Time: Jul 22, 2024 08:17 AM Reporting Lab: [place] [facility] [address] [place] [address] Performing Lab: [place] [facility] [address] [place] [address] CREATININE 1.29 mg/dL 0.7-1.3 UREA NITROGEN 19 mg/dL 9-25 GLUCOSE 85 mg/dL 72-99 SODIUM 139 meq/L 136-145 POTASSIUM 4.4 meq/L 3.5-5 CHLORIDE 105 meq/L 98-107 CARBON DIOXIDE 24 meq/L 22-31 CALCIUM 9.6 mg/dL 8.4-10.4 PROTEIN 8.1 g/dL 6-8.6 ALBUMIN 4.5 g/dL 3.4-5 TOTAL BILIRUBIN 0.4 mg/dL 0.2-1.2 ALKALINE PHOSPHATASE 60 U/L 40-150 AST/SGOT 29 U/L 5-34 ALT/SGPT 56 U/L H 8-40 EGFR (CKD-EPI 2020) 64 Jul 22, 2024 08:18 AM [facility] CHOLESTEROL PANEL (PB) PLASMA Specimen Type: PLASMA Comment: LDL calculation invalid when Triglyceride exceeds 250 mg/dl Ordering Provider: CHERIE TRACY Report Released Date/Time: Jul 22, 2024 08:17 AM Reporting Lab: [place] [facility] [address] [place] [address] Performing Lab: [place] [facility] [address] [place] [address] CHOLESTEROL 217 mg/dL H 0-200 TRIGLYCERIDE 297 mg/dL H 0-150 CALCULATED LDL comment mg/dL HDL(New) 36.0 mg/dL L >40 HDL % OF TOTAL CHOLESTEROL (PB) 16.6 >25 DIRECT LDL(MA) 166.8 mg/dL H 0-99.9 Jul 22, 2024 08:18 AM [facility] TSH (MA-PB) SERUM Specimen Typ e: SERUM No comment entered. Ordering Provider: CHERIE TRACY Report Released Date/Time: Jul 22, 2024 08:17 AM Reporting Lab: [place] [facility] [address] [place] [address] Performing Lab: [place] [facility] [address] [place] [address] TSH 1.938 u[IU]/mL 0.47-5 Jul 22, 2024 08:18 AM [facility] CBC BLOOD Specimen Type: BLOOD No comment entered. Ordering Provider: CHERIE TRACY Report Released Date/Time: Jul 22, 2024 08:17 AM Reporting Lab: [place] [facility] [address] [place] [address] Performing Lab: [place] [facility] [address] [place] [address] WBC 8.4 10*3/uL 3.6-11.2 RBC 5.04 10*6/uL 4.10-5.70 HGB 16.8 g/dL 13.1-16.8 HCT 48.5 H 38.2-48.4 MCV 96.2 fL 80.0-100.0 MCH 33.3 pg 27.0-34.0 MCHC 34.6 g/dL 33.0-36.0 PLT 360 10*3/uL 150-400 MPV 10.2 fL 7.5-11.2 RDW 13.0 11.8-15.1 LYMPHOCYTES, AUTO % 27.6 MONOCYTES, AUTO % 11.2 NEUTROPHILS, AUTO % 58.1 EOSINOPHILS, AUTO % 1.8 BASOPHILS, AUTO % 1.1 LYMPHOCYTES, ABSOLUTE 2.31 10*3/uL 0.77- 4.50 MONOCYTES, ABSOLUTE 0.94 10*3/uL H 0.19-0. 8 NEUTROPHILS, ABSOLUTE 4.85 10*3/uL 2.10- 8.00 EOSINOPHILS, ABSOLUTE 0.15 10*3/uL 0.00- 0.60 BASOPHILS, ABSOLUTE 0.09 10*3/uL 0.00-0. 20 IMMATURE GRANS, AUTO % 0.2 IMMATURE GRANS, AUTO ABS 0.02 10*3/uL 0. 00-0.05 Vital Signs: All taken on the encounter date This section contains inpatient and outpatient Vital Signs collected on the date of the Encounter. Date/Time Temperature Pulse Blood Pressure Respiratory Rate SP02 Pain Height Weight Body Mass Index Source Jul 28, 2024 08:41 AM 97.8 73 118/73 17 97 0 210.9 33 [facility] Social History: Smoking Status (Most current) and Tobacco Use (All prior to encounter date) This section includes the most current, and the historical, smoking and tobacco- related health factors from the [place] facility where the Encounter took place. Current Smoking Status This section includes the most current smoking, or tobacco-related health factor, from the [place] facility where the Encounter took place. Date/Time Current Smoking Status Comment Tara gomez Jul 28, 2024 08:30 AM VA-TOBACCO NEVER USED OTHER TYPE [facility] Tobacco Use History This section includes a history of the smoking, or tobacco-related health factors, that were collected on or before the date of the Encounter. The data comes from the [place] facility where the Encounter took place. Date/Time Smoking Status/Tobacco Use Comment F acility Jul 28, 2024 08:30 AM VA-TOBACCO USE FORMER CIGARETTES [facility] Jul 29, 2023 08:30 AM VA-TOBACCO FORMER USER [facility] Jul 29, 2023 08:30 AM VA-TOBACCO QUIT 1 TO < [address] [facility] Aug 02, 2022 11:01 AM VA-TOBACCO FORMER USER [facility] Aug 02, 2022 11:01 AM VA-TOBACCO QUIT 1 TO < 5 YRS [facility] Encounter Notes: All associated encounter notes This section contains the clinical notes associated to the Encounter. Date/Time Encounter Note(s) Provider Source Jul 28, 2024 08:48 AM PRIMARY CARE PROGR ESS NOTE: LOCAL TITLE: PRIMARY CARE CLINIC PROGRESS NOTE PB STANDARD TITLE: PRIMARY CARE PROGRESS NOTE DATE OF NOTE: JUL 28, 2024@08:48 ENTRY DATE: JUL 28, 2024@08:48:07 AUTHOR: CHERIE TRACY EXP COSIGNER: URGENCY: STATUS: COMPLETED SUBJECTIVE: GOOD,ISMAEL HARLEY is a 59 years old MALE. HPI: Presents to the clinic today for a periodic health maintenance visit. Last seen January 15, 2024 He reports he is needing dental work and the dentist wanted himm off the plavix for 7 days and his journeyman plumber said no only 3 days max due to his stents. He rpeorts his teeth really started breaking off more after his NM. He rarely needs his famotadine, no issues with GERD. He does report swelling in his bilateral legs occ mainly if up working on them all day. He rpeorts no knee pain since he saw the chiroprator and had his hips adjusted. Non-VA Primary Care Provider [facility]- Dr. 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 STATIONS/DEPLOYMENTS: [employer] MAJOR ACCIDENTS OR INJURIES WHILE ON ACTIVE DUTY: SURGICAL HX: Coronary artery stent LAD EGD 2018 (PUD) 08/2022 antritis, small hital hernia C- spine fusion Left finger (trauma) Left foot Tonsillectomy colonoscopy 08/2022 tubular adenomas x3 Problem List 1) Peptic ulcer disease 2) CAD - Coronary Artery Disease ([facility] [id number]) 3) Gout ([facility] [id number]) 4) History of cardiac catheterization 5) History of surgery 6) Ex-smoker 7) Anxiety ([facility] [id number]) 8) Plantar fasciitis 9) Polyp Colon ([facility] [id number]) 10) Insomnia 11) Irritable bowel syndrome characterized by alternating bowel habit 12) Anxiety ([facility] [id number]) 13) Bilateral osteoarthritis of knees 14) Obesity ([facility] [id number]) Active Outpatient Medications (including Supplies): Active Outpatient Medications Status 1) BUSPIRONE HCL 10MG TAB TAKE ONE TABLET BY MOUTH THREE TIMES ACTIVE A DAY DO NOT TAKE WITH GRAPEFRUIT JUICE. Indication: FOR ANXIETY 2) DICLOFENAC NA 1% TOP GEL APPLY 4 GM TO AFFECTED AREA(S) FOUR ACTIVE TIMES A DAY DO NOT EXCEED MORE THAN 16 GRAMS DAILY TO ANY LOWER EXTREMITY JOINT. NOT MORE THAN 8 GRAMS DAILY TO ANY UPPER EXTREMITY JOINT. MAX 32GM/DAY OVER ALL JOINTS. (MEASURE DOSE WITH RULER ATTACHED INSIDE BOX) Indication: FOR OSTEOARTHRITIS 3) FAMOTIDINE 20MG TAB TAKE ONE TABLET BY MOUTH TWICE A DAY ACTIVE Indication: FOR GASTROESOPHAGEAL REFLUX DISEASE 4) OLANZAPINE 5MG TAB TAKE ONE-HALF TABLET BY MOUTH ONCE A DAY ACTIVE Indication: FOR BIPOLAR DISORDER Allergies: Patient has answered NKA Review of Systems: as per HPI and Systemic: Denies fatigue, fever, chills, or weight loss CV: Denies chest pain, palpitations Pulmonary: Denies hemoptysis, Shortness of breath, dyspnea on exertion GI: Denies constipation, bloody stools, diarrhea, indigestion, or n/v Ext: Denies any swelling Neuro: Denies slurred speech or dizziness Skin: Denies abnormal lesions; denies any new rashes PSYCH: Denies SI/HI; denies nightmares OBJECTIVE: Vital Signs Temperature: 97.8 F [36.6 C] (07/28/2024 08:41) Respiratory Rate: 17 (07/28/2024 08:41) Pulse Rate: 73 (07/28/2024 08:41) Blood Pressure: 118/73 (07/28/2024 08:41) HT: 67 in [170.2 cm] (01/15/2024 09:25) WT: 210.9 lb [95.66 kg] (07/28/2024 08:41) BMI: 33.1 97% (07/28/2024 08:41) Physical Exam General: NAD noted, A&Ox3, pleasant, appears stated age HEENT: NCAT, TM's clear, nares and oropharynx clear; several broken/decayed/missing teeth Neck: Supple with normal active ROM, without any lymphadenopathy Heart: RRR, no murmur, clicks, or rub Resp: Lungs CTA bilaterally, respirations even and unlabored Ext: No clubbing, cyanosis, edema or obvious deformity Skin: Warm, pink, and dry, no rashes Neuro: Grossly intact Psych: Affect normal, answers questions appropriately throughout visit A/P: ASSESSMENT and PLAN Health Maintenance: Labs reviewed with patient and printout given to patient. Discussed preventative health to include diet and exercise as well as immunizations. Peptic ulcer disease/antritis- denies any issues; rarely takes a famotidine CAD -stable no angina on EC 81mg aspirin, metoprolol, atorvastatin, and Plavix; due to his significant dental decay and need for removal of several teeth will work on getting him an oral surgeon referral due to his increased risk with the Plavix RACHEL-followed by behavioral health as well on BuSpar and Zyprexa he is doing well; will work on diet in addition Gout- no issues in 20 years Plantar fasciitis- discussed supportive care and exercises with patient. Bilateral knee pain-doing well after chiropractic treatment and hip alignment IBS-discussed a good diet handout given for an anti-inflammatory diet as well as continue to work with anxiety Polyp Colon-repeat colonoscopy 2027 Insomnia-resolved with Zyprexa Obesity-handout given for anti-inflammatory diet patient agreeable to enroll in the MOVE program Vitamin D deficiency-he will start taking an [id number] supplement Hypercholesterolemia-again discussed diet and increased activity no meds at this time Stable. Discussed medications with patient; med rec completed. Continue current regimen as prescribed by PCP and specialists. RTC as needed if developing any new or worsening symptoms. Please notify PACT with medication changes or for orders coordination as needed if seen by a specialist in the future. Will f/u with patient once updated labs / imaging / testing received; otherwise f/u as listed below. Follow-up: 12 months with fasting labs prior to appointment and/or as needed. Discussed with patient that in the event of community imaging / testing being ordered in the future, once the imaging / testing has been completed, please notify PACT of completion at outside facility if not called with results within 1 week by a VA PACT member; this is due to intermittent lapses in notification of imaging completion within [facility]. All questions answered; agrees to plan of care. Follow up as listed above, annually, and as needed. Keep all appointments. Medications Reconciled. See AVS given to . Time spent 30 minutes. /patricio/ Cherie Tracy MD [facility] Primary Care Signed: 07/29/2024 09:21 CHERIE TRACY [facility] Jul 28, 2024 08:23 AM PRIMARY CARE NURSI ANGELA NOTE: LOCAL TITLE: PRIMARY CARE NURSING PROGRESS NOTE (TEXT) NURSING P STANDARD TITLE: PRIMARY CARE NURSING NOTE DATE OF NOTE: JUL 28, 2024@08:23 ENTRY DATE: JUL 28, 2024@08:23:22 AUTHOR: VIGNESH ABDI COSIGNER: URGENCY: STATUS: COMPLETED Established Patient ISMAEL MARLOW IS A 59 YEAR OLD MALE BEING SEEN IN CLINIC JUL 28, 2024. = = REASON FOR VISIT: The is here for his annual visit. The would like to talk about his concerns with his teeth, and being on blood thinners. Reports that he had a heart attack three years ago and has been having his teeth break off since. Reports he tried to get them fixed but they would not do anything because of the Blood thinners he is on and his heart doctor would not take him off of the blood thinners. Are you receiving care any where other than the [facility]? No HEALTH AND SURGICAL HISTORY: Does patient report using home oxygen? No CURRENT ACTIVE MEDICATIONS FOR REVIEW: Allergies/ADRs (Tool #5) FACILITY ALLERGY/ADR -------- No Remote Allergy/ADR Data available for this patient [facility] No Known Allergies Med. Reconciliation (Tool #1) INCLUDED IN THIS LIST: Alphabetical list of active outpatient prescriptions dispensed from this [place] (local) and dispensed from another [place] or DoD facility (remote) as well as inpatient orders (local pending and active), local clinic medications, locally documented non-VA medications, and local prescriptions that have or been discontinued in the past 90 days. Non-VA Meds Last Documented On: Jan 18, 2023 NOTE The display of VA prescriptions dispensed from another VA or DoD facility (remote) is limited to active outpatient prescription entries matched to National Drug File at the originating site and may not include some items such as investigational drugs, compounds, etc. NOT INCLUDED IN THIS LIST: Medications self-entered by the patient into personal health records (i.e. [employer]) are NOT included in this list. Non-VA medications documented outside this [place], remote inpatient orders (regardless of status) and remote clinic medications are NOT included in this list. The patient and provider must always discuss medications the patient is taking, regardless of where the medication was dispensed or obtained. OUTPT BUSPIRONE HCL 10MG TAB (Status = Active) TAKE ONE TABLET BY MOUTH THREE TIMES A DAY FOR ANXIETY DO NOT TAKE WITH GRAPEFRUIT JUICE. Rx# [id number] Last Released: 07/31/23 Qty/Days Supply: 270/90 Rx Expiration Date: 07/29/24 Refills Remainin Indication: FOR ANXIETY OUTPT DICLOFENAC NA 1% TOP GEL (Status = Active) APPLY 4 GM TO AFFECTED AREA(S) FOUR TIMES A DAY FOR OSTEOARTHRITIS DO NOT EXCEED MORE THAN 16 GRAMS DAILY TO ANY LOWER EXTREMITY JOINT. NOT MORE THAN 8 GRAMS DAILY TO ANY UPPER EXTREMITY JOINT. MAX 32GM/DAY OVER ALL JOINTS. (MEASURE DOSE WITH RULER ATTACHED INSIDE BOX) Rx# [id number] Last Released: 07/30/23 Qty/Days Supply: 300/90 Rx Expiration Date: 07/29/24 Refills Remainin Indication: FOR OSTEOARTHRITIS OUTPT FAMOTIDINE 20MG TAB (Status = Active) TAKE ONE TABLET BY MOUTH TWICE A DAY FOR GASTROESOPHAGEAL REFLUX DISEASE Rx# [id number] Last Released: 07/31/23 Qty/Days Supply: 180/90 Rx Expiration Date: 07/29/24 Refills Remainin Indication: FOR GASTROESOPHAGEAL REFLUX DISEASE OUTPT OLANZAPINE 5MG TAB (Status = Active) TAKE ONE-HALF TABLET BY MOUTH ONCE A DAY FOR BIPOLAR DISORDER Rx# [id number] Last Released: 07/31/23 Qty/Days Supply: 45/90 Rx Expiration Date: 07/29/24 Refills Remainin Indication: FOR BIPOLAR DISORDER SUPPLIES PHARMACY TERMS AND POSSIBLE PATIENT ACTIONS INPT = [place] inpatient order IV = RI intravenous medication OUTPT = [place] outpatient prescription PHARMACY POSSIBLE PATIENT TERMS EXPLANATION ACTIONS -------- ---- ACTIVE A prescription that can be If you have refills, filled at the local [place] pharmacy. you may request a refill of this prescription from your VA pharmacy. CLINIC A medication you received during If you have questions a visit to a [place] clinic or about this medication emergency department. contact your [place] healthcare team. DISCONTINUED A prescription your provider has Contact your [place] stopped. It is no longer healthcare team if you available to be sent to you or need more of this picked up at the [place] pharmacy medication. window. A prescription which is too old Contact your VA to fill. This does not refer to healthcare team if you the expiration date of the need more of this medication in the container. medication. NON-VA A medication that came from If this medication someplace other than a VA information is pharmacy. This may be a incorrect or out of prescription from either the VA date, please tell your or non VA providers that was VA healthcare team. filled outside the VA. Or, it may be an qbzv-anf-xwpiaoo (OTC), herbal, dietary supplements or sample medication. ON HOLD An active prescription that will Contact your VA not be filled until pharmacy pharmacy when you need resolves the issue. more of this medication. PARKED An active prescription that will Contact your VA not be filled until the patient pharmacy when you need requests it. this medication. PENDING This prescription order has been If you have been sent to the pharmacy for review instructed to start and is not ready yet. this medication now, contact your VA pharmacy. SUSPENDED An active prescription that is Contact your VA not scheduled to be filled yet. pharmacy if you need You should receive it before this medication now. you run out. Patient reports taking meds other than as directed/ordered: is not using Diclofenac, not taking famotidine. IS PATIENT TAKING ANY OVER THE COUNTER MEDICATIONS, SUCH VITAMINS OR HERBAL SUPPLEMENTS, INCLUDING ANY MEDICATIONS PRESCRIBED BY ANOTHER PHYSICIAN? Yes, List: Clopidogrel 75mg getting from [facility] out of [place] ALLERGIES/ADVERSE REACTIONS: Patient has answered NKA Does patient have any new allergies to report since last visit? NO VITALS: TEMPERATURE: 97.5 F [36.4 C] (06/05/2024 17:05) BP: 132/88 (06/05/2024 17:05) RESP: 18 (06/05/2024 17:) PULSE: 80 (06/05/2024:) HT: 67 in [170.2 cm] (01/15/2024 09:25) WT: 206.8 lb [93.80 kg] (01/15/2024 09:25) BMI: 32.5 PAIN ASSESSMENT: (Most Recent Pain Score in Vitals Package: 6 (01/15/2024 09:25) ) The patient indicated that they and their close contacts have not traveled outside of the [place] in the past 21 days. The patient reports the following symptoms: No symptoms present The patient is not immunocompromised. The patient does not report having a history of Multi Drug Resistant Organism (MDRO) within the last five years. The patient does not report having been exposed to measles, chickenpox, or zoster in last 30 days. Patient reports no pain at this visit. Pain Score = 0. STRESS: Thank you for your service. Now let us serve you. At the [facility], we strive to provide you with exceptional health care that improves your health and well-being. Are you feeling sad, empty, or depressed? No Do you need to talk about things in your life that worry you or cause you stress? No Do you need to talk about personal problems, family problems, alcohol use, drug use, or mental or emotional illness? No SUICIDE SCREENING: The patient was asked, Over the past two weeks, how often have you been bothered by thoughts that you would be better off or of hurting yourself in some way? Not At All SPIRITUAL ASSESSMENT: Are there adventism practices or spiritual concerns you want the home manager, your physician, and other health care team members to immediately know about? No Patient advised to call the clinic for any concerns, questions, or symptoms. Patient and/or caregiver verbalized understanding of plan of care. Suicide Screen - V: C-SSRS Screening [place]irt Suicide Severity Rating Scale (C-SSRS) screener 1. Over the past month, have you wished you were or wished you could go to sleep and not wake up? No 2. Over the past month, have you had any actual thoughts of killing yourself? No 3. Over the past month, have you been thinking about how you might do this? Response not required due to responses to other questions. 4. Over the past month, have you had these thoughts and had some intention of acting on them? Response not required due to responses to other questions. 5. Over the past month, have you started to work out or worked out the details of how to kill yourself? Response not required due to responses to other questions. 6. If yes, at any time in the past month did you intend to carry out this plan? Response not required due to responses to other questions. 7. In your lifetime, have you ever done anything, started to do anything, or prepared to do anything to end your life (for example, collected pills, obtained a gun, gave away valuables, went to the roof but didn't jump)? No 8. If YES, was this within the past 3 months? Response not required due to responses to other questions. Depression Screening - V: Perform PHQ-2 A PHQ-2 screen was performed. The score was 0 which is a negative screen for depression. Over the past two weeks, how often have you been bothered by the following problems? 1. Little interest or pleasure in doing things Not at all 2. Feeling down, depressed, or hopeless Not at all RHS Screen - VS: RHS Screen Session Format: Face to Face Environmental Check Upon inquiry, the individual reports that the environment is safe to proceed. Informed Consent to Screen and Document The individual consents to proceed with screening. The individual consents to documentation of responses. PRIMARY SCREEN: In the past 12 months, how often did a current or former intimate partner (e.g., boyfriend, girlfriend, , , sexual partner): 1. Scream or curse at you Never 2. Insult or talk down to you Never 3. Threaten you with harm Never 4. Physically hurt you Never 5. Force or pressure you to have sexual contact against your will, or when you were unable to say no Never The HITS tool (items 1-4 above) is [place] copyright protected by Ihsan Mills MD, and the user has full rights to use it throughout the [place] system. PRIMARY SCREEN RESULT: The Primary Screen is NEGATIVE. The individual answered never to all forms of IPV above (i.e., answered never to all 5 items) The individual accepts education and/or resources: No EDUCATION: Other: not needed COVID-19 Immunization - L,N,P,PH,U: Refused Moderna Monovalent COVID-19 vaccine Immunization: COVID-19 (MODERNA), MRNA, LNP-S, PF, 50 MCG/0.5 ML (AGES 12+ YEARS) Refusal Reason: PATIENT DECISION Patient refuses all immunization(s) in the COVID-19 group Date Documented: 07/28/24 08:45 Alcohol Use Screen (AUDIT-C) - V: Alcohol Screen: SCREEN FOR ALCOHOL (AUDIT-C) An alcohol screening test (AUDIT-C) was negative (score=0). 1. How often did you have a drink containing alcohol in the past year? Consider a drink to be a 12 ounce can or bottle of regular beer, 8 ounces of malt liquor, a 5 ounce glass of table wine, or a 1.5 ounce shot of liquor (like scotch, gin, or vodka). Never 2. How many drinks containing alcohol did you have on a typical day when you were drinking in the past year? Response not required due to responses to other questions. 3. How often did you have six or more drinks on one occasion in the past year? Response not required due to responses to other questions. Tobacco Use Screening - AT,DE,L,M,N,P,PH,PS,RT,S,U: The patient is a former cigarette smoker. The patient has never used other types of tobacco. Homelessness/Food Insecurity Screen - DI,L,N,P,PH,PS,S,U: In the past 2 months, have you been living in stable housing that you own, rent, or stay in as part of a household? Yes - Living in stable housing. Are you worried or concerned that in the next 2 months you may NOT have stable housing that you own, rent, or stay in as part of a household? No - Not worried about housing near future The [place] reports the following: Within the past 12 months, you worried whether your food would run out before you got money to buy more. Never true Within the past 12 months, the food you bought just didn't last and you didn't have money to get more. Never true Advanced Directive Screen/Endbander: ADVANCE DIRECTIVE SCREENING: I asked if the patient has an advance directive, and determined that: Patient does not have an Advance Directive. Patient was given form to update and return when completed. ADVANCE DIRECTIVE NOTIFICATION I provided the patient with written notification about advance directives. Level of understanding: Good Influenza Immunization - L,N,P,PH,U: Deferral / Refusal The patient declines to receive the recommended dose of seasonal influenza vaccine. Immunization: INFLUENZA, UNSPECIFIED FORMULATION Refusal Reason: PATIENT DECISION Patient refuses all immunization(s) in the FLU group Date Documented: 07/28/24 08:47 Pneumococcal Conjugate Vaccine (PCV15/PCV20) - L,N,P,PH,U: Refuses PCV vaccine Immunization: PNEUMOCOCCAL CONJUGATE, UNSPECIFIED FORMULATION Refusal Reason: PATIENT DECISION Patient refuses all immunization(s) in the PneumoPCV group Date Documented: 07/28/24 08:48 Pain Assessment: - PAIN ASSESSMENT: .. Patient reports no pain at this visit. Pain Score = 0. Patient's self identified pain goal: 0 Weight Control/Nutrition Counseling: * Patient declined nutrition and weight screen counseling at this encounter. HIV Screening-Routine: Patient has been offered HIV testing and has declined. I have explained that HIV testing is recommended for all adults, even if all risk factors are absent. Patient/Nurse Interview: * * Patient stated that adequate information was received regarding the condition and/or treatment. Comment: If you have any questions please call the clinic Per [facility] Directive 1605.06, wristband documentation: Patient wristband was removed and destroyed by (staff name) Lee Ann Abdi RN and placed in the designated Wander-It bin. Avg Risk Colorectal Cancer Screen - L,N,P,PH: AVERAGE RISK colorectal cancer screening is due based on information available to this clinical reminder Prior/outside colonoscopy results: last done [facility] Colon-repeat colonoscopy 2027 Date: August, ? Exact date is unknown Colonoscopy reminder set 3 years from JUL 28, 2024. Comments (optional): last done [facility] Colon-repeat colonoscopy 2027 /es/ Vignesh Abdi RN,BSN [place], [facility] Signed: 07/28/2024 12:58 VIGNESH ABDI [place] [facility]
--- OUTSIDE RECORDS SUMMARY | 2024-09-07 03:45 | XMS_ITS | Encounter Summary ---
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 Date/Time Encounter Type Encounter Description Reason Provider Source Sep 07, 2024 08:45 AM OFF/OP EST OCTOBER X REQ PHY/QHP PRIMARY CARE/MEDICINE ICD-10-CM R60.9 Edema, unspecified CUSTRED,GUILLERMO J IHE Encounter Template Text not used by [place] Assessments - Encounter Diagnoses This section includes the primary and secondary diagnoses documented for the Encounter. Date/Time Primary/Secondary Diagnosis Diagnosis Name Provider Source Sep 07, 2024 04:17 PM PRIMARY Edema, unspecified CUSTRED,GUILLERMO J [facility] Plan of Treatment: Future Appointments (+ 6 months) and Future Tests (+/- 45 days) The Plan of Treatment section includes future care activities for the patient from all [place] treatmentfacilities. This section includes future appointments and future orders which are active, pending or scheduled. Future Appointments This section includes appointments that were scheduled to occur 6 months from the date of the Encounter, up to a maximum of 20 appointments. The data comes from all [place] treatment facilities. Appointment Date/Time Appointment Type Appointme nt Facility Name Sep 28, 2024 09:00 AM AMBULATORY - MEDICINE [facility] Dec 07, 2024 01:00 PM [facility]ORY - [facility] Dec 14, 2024 12:45 PM AMBULATORY - MEDICINE [facility] Dec 21, 2024 11:30 AM AMBULATORY - MEDICINE [facility] Jan 04, 2025 10:30 AM AMBULATORY - MEDICINE [facility] 2025 12:15 PM AMBULATORY - MEDICINE [facility] 2025 01:00 PM AMBULATORY - MEDICINE [facility] Jan 11, 2025 11:30 AM [facility] Jan 21, [facility]25 11:00 AM [facility]UL[facility] - MEDICINE [facility] Active, Pending, and Scheduled Orders This section includes a listing of several types of active, pending, and scheduled orders, including clinic medications orders, diagnostic test orders, procedure orders and consult orders; where the start date of the order is 45 days before the date of the Encounter or 45 days after the date of theEncounter. The data comes from all [place] treatment facilities. Test Date/Time Test Type Test Details Facility Name Sep 28, 2024 09:49 AM Consult [id number] Cons Shot Bagger's Choice [facility] Vital Signs: All taken on the encounter date This section contains inpatient and outpatient Vital Signs collected on the date of the Encounter. Date/Time Temperature Pulse Blood Pressure Respiratory Rate SP02 Pain Height Weight Body Mass Index Source Sep 07, 2024 04:05 PM 97.7 78 128/79 [facility] Social History: Smoking Status (Most current) and Tobacco Use (All prior to encounter date) This section includes the most current, and the historical, smoking and tobacco- related health factors from the [place] facility where the Encounter took place. Current Smoking Status This section includes the most current smoking, or tobacco-related health factor, from the [place] facility where the Encounter took place. Date/Time Current Smoking Status Comment Tara ity Jul 28, 2024 08:30 AM VA-TOBACCO NEVER USED OTHER TYPE [facility] Tobacco Use History This section includes a history of the smoking, or tobacco-related health factors, that were collected on or before the date of the Encounter. The data comes from the [place] facility where the Encounter took place. Date/Time Smoking Status/Tobacco Use Comment F acility Jul 28, 2024 08:30 AM VA-TOBACCO USE FORMER CIGARETTES [facility] Jul 29, 2023 08:30 AM VA-TOBACCO FORMER USER [facility] Jul 29, 2023 08:30 AM VA-TOBACCO QUIT 1 TO < 5 YRS [facility] Aug 02, 2022 11:01 AM VA-TOBACCO FORMER USER [facility] Aug 02, 2022 11:01 AM VA-TOBACCO QUIT 1 TO < 5 YRS [facility] Encounter Notes: All associated encounter notes This section contains the clinical notes associated to the Encounter. Date/Time Encounter Note(s) Provider Source Sep 08, 2024 08:53 AM ADDENDUM: LOCAL TITLE: Addendum STANDARD TITLE: ADDENDUM DATE OF NOTE: SEP 08, 2024@08:53:33 ENTRY DATE: SEP 08, 2024@08:53:34 AUTHOR: CHERIE TRACY EXP COSIGNER: URGENCY: STATUS: COMPLETED Patient was instructed on September 02, 2024 that if he continues to have swelling in his legs and he had concern he needed to make an appointment with me. /es/ Cherie Tracy MD [facility] Signed: 09/08/2024 08:53 Receipt Acknowledged By: 09/10/2024 13:00 /patricio/ GUILLERMO FIERRO, RN [facility] 09/08/2024 09:02 /patricio/ RADHA EKNNY AMSA --- Original Document --- 09/07/24 NURSING NOTE PB: Blood Pressure: 128/79 Pulse: 78 Temperature: 97.7 F (36.5 C) Pulse Oximetry: 96% CC: presents to walk in clinic stating bilateral lower extremity swelling. Subjective: states over last month he has been noticing some swelling both ankles. Reports in am the swelling has gone away but by end of day feet are swollen. Denies any pain in legs or signs of decreased circulation. O/A: is alert and oriented. Respirations easy with clear breath sounds throughout. Heart rate regular apically with no pedal or ankle edema assessed in clinic. [place] states if he stands all day his feet will swell. Circulation check bilateral lower normal. Negative holmons sign. Plan/ Intervention: Educated on some causes of swelling such as high salt/sodium intake with stating he does not add salts to foods etc. Educated to take rest periods when at work, sit with feet elevated when able. Encouraged PCP appointment because also reports increased fatigue, malaise, and decreased activity tolerance. Will schedule follow up with [facility] PCP 09/28/24. RTC: As scheduled and as needed. Per [facility] Directive 1605.06, wristband documentation: Patient wristband was removed and destroyed by (staff name) Guillermo Noriega RN and placed in the designated happin!-It bin. /es/ GUILLERMO FIERRO RN [facility] Signed: 09/07/2024 16:17 Receipt Acknowledged By: 09/08/2024 08:53 /patricio/ Cherie Tracy MD [facility] 09/08/2024 ADDENDUM STATUS: COMPLETED [place] is scheduled with PCP on September 28, 2024 at 0900. /es/ RADHA KENNY AMSA Signed: 09/08/2024 09:03 CHERIE TRACY [facility] Sep 07, 2024 04:05 PM NURSING PROGRESS N OTE: LOCAL TITLE: NURSING NOTE PB STANDARD TITLE: NURSING PROGRESS NOTE DATE OF NOTE: SEP 07, 2024@16:05 ENTRY DATE: SEP 07, 2024@16:05:28 AUTHOR: GUILLERMO NORIEGA EXP COSIGNER: URGENCY: STATUS: COMPLETED NURSING NOTE PB Has ADDENDA Blood Pressure: 128/79 Pulse: 78 Temperature: 97.7 F (36.5 C) Pulse Oximetry: 96% CC: [place] presents to walk in clinic stating bilateral lower extremity swelling. Subjective: [place] states over last month he has been noticing some swelling both ankles. Reports in am the swelling has gone away but by end of day feet are swollen. Denies any pain in legs or signs of decreased circulation. O/A: is alert and oriented. Respirations easy with clear breath sounds throughout. Heart rate regular apically with no pedal or ankle edema assessed in clinic. states if he stands all day his feet will swell. Circulation check bilateral lower normal. Negative holmons sign. Plan/ Intervention: Educated on some causes of swelling such as high salt/sodium intake with stating he does not add salts to foods etc. Educated to take rest periods when at work, sit with feet elevated when able. Encouraged PCP appointment because also reports increased fatigue, malaise, and decreased activity tolerance. Will schedule follow up with [facility] PCP 09/28/24. RTC: As scheduled and as needed. Per [facility] Directive 1605.06, wristband documentation: Patient wristband was removed and destroyed by (staff name) Guillermo Noriega RN and placed in the designated Treatfuled-It bin. /patricio/ GUILLERMO FIERRO RN [facility] Signed: 09/07/2024 16:17 Receipt Acknowledged By: 09/08/2024 08:53 /patricio/ Cherie Tracy MD [facility] 09/08/2024 ADDENDUM STATUS: COMPLETED Patient was instructed on September 02, 2024 that if he continues to have swelling in his legs and he had concern he needed to make an appointment with me. /patricio/ Cherie Tracy MD [facility] Signed: 09/08/2024 08:53 Receipt Acknowledged By: * AWAITING SIGNATURE * GUILLERMO NORIEGA 09/08/2024 09:02 /patricio/ RADHA SERRA 09/08/2024 ADDENDUM STATUS: COMPLETED [place] is scheduled with PCP on September 28, 2024 at 0900. /patricio/ RADHA SERRA Signed: 09/08/2024 09:03 GUILLERMO NORIEGA [facility]
--- OUTSIDE RECORDS SUMMARY | 2024-09-28 04:00 | XMS_ITS | Encounter Summary ---
Author Name [facility] [place] Organization [facility] [place] [place] Address [address] [place] [address] Care Team Providers Care Pattern Shop Supervisor Name Role Phone CHERIE TRACY Primary Care Provider Unavailabl e Selected Encounter This section includes the information on record at [place] for the Encounter. Date/Time Encounter Type Encounter Description Reason Provider Source Sep 28, 2024 09:00 AM OFFICE O/P EST MOD 30 MIN PRIMARY CARE/MEDICINE ICD-10-CM R60.9 Edema, unspecified CHERIE TRACY IHE Encounter Template Text not used by [place] Assessments - Encounter Diagnoses This section includes the primary and secondary diagnoses documented for the Encounter. Date/Time Primary/Secondary Diagnosis Diagnosis Name Provider Source Sep 28, 2024 09:48 AM PRIMARY Edema, unspecified CHERIE TRACY [facility] Sep 28, 2024 09:48 AM SECONDARY Athscl heart disease of [place] coronary artery w/o ang pctrs [facility] Sep 28, 2024 09:48 AM SECONDARY Pure hypercholesterolem ia, unspecified CHERIE TRACY [facility] Plan of Treatment: Future Appointments (+ 6 months) and Future Tests (+/- 45 days) The Plan of Treatment section includes future care activities for the patient from all [place] treatmentfacilities. This section includes future appointments and future orders which are active, pending or scheduled. Future Appointments This section includes appointments that were scheduled to occur 6 months from the date of the Encounter, up to a maximum of 20 appointments. The data comes from all [place] treatment facilities. Appointment Date/Time Appointment Type Appointme nt Facility Name Dec 07, 2024 01:00 PM AMBULATORY - MEDICINE [facility] Dec 14, 2024 12:45 PM AMBULATORY - MEDICINE [facility] [facility] Dec 21, 2024 11:30 AM [facility] Jan 04, 2025 10:30 AM [facility] MED[facility]INE [facility] 2025 12:15 PM AM[facility]ULATORY [facility] MEDICINE [facility] 2025 01:00 PM [facility] Jan 11, 2025 11:30 AM [facility]ORY [facility] MEDIC[facility] Jan 21, 2025 11:00 AM [facility]BULATORY - MEDICINE [facility] Active, Pending, and Scheduled Orders This section includes a listing of several types of active, pending, and scheduled orders, including clinic medications orders, diagnostic test orders, procedure orders and consult orders; where the start date of the order is 45 days before the date of the Encounter or 45 days after the date of theEncounter. The data comes from all [place] treatment facilities. Test Date/Time Test Type Test Details Facility Name Sep 28, 2024 09:49 AM Consult Order [id number] Cons Network Security Administrator's Choice [facility] Vital Signs: All taken on the encounter date This section contains inpatient and outpatient Vital Signs collected on the date of the Encounter. Date/Time Temperature Pulse Blood Pressure Respiratory Rate SP02 Pain Height Weight Body Mass Index Source Sep 28, 2024 09:10 AM 84 128/72 18 96 0 67.0 207.0 32 [facility] Social History: Smoking Status (Most current) and Tobacco Use (All prior to encounter date) This section includes the most current, and the historical, smoking and tobacco- related health factors from the [facility] facility where the Encounter took place. Current Smoking Status This section includes the most current smoking, or tobacco-related health factor, from the [facility] facility where the Encounter took place. Date/Time Current Smoking Status Comment Facil ity Jul 28, 2024 08:30 AM VA-TOBACCO NEVER USED OTHER TYPE [facility] Tobacco Use History This section includes a history of the smoking, or tobacco-related health factors, that were collected on or before the date of the Encounter. The data comes from the [facility] facility where the Encounter took place. Date/Time Smoking Status/Tobacco Use Comment F acility Jul 28, 2024 08:30 AM VA-TOBACCO USE FORMER CIGARETTES [facility] Jul 29, 2023 08:30 AM VA-TOBACCO FORMER USER [facility] [place] [facility] Jul 29, 2023 08:30 AM VA-TOBACCO QUIT 1 TO < 5 YRS [facility] Aug 02, 2022 11:01 AM VA-TOBACCO [facility] US[facility] Aug 02, 2022 11:01 AM VA-TOBACCO QUIT 1 TO < 5 YRS [facility] Encounter Notes: All associated encounter notes This section contains the clinical notes associated to the Encounter. Date/Time Encounter Note(s) Provider Source Sep 28, 2024 09:12 AM PRIMARY CARE PROGR ESS NOTE: LOCAL TITLE: PRIMARY CARE CLINIC PROGRESS NOTE PB STANDARD TITLE: PRIMARY CARE PROGRESS NOTE DATE OF NOTE: SEP 28, 2024@09:12 ENTRY DATE: SEP 28, 2024@09:12:58 AUTHOR: CHERIE TRACY COSIGNER: URGENCY: STATUS: COMPLETED CC: Patient reports bilateral lower extremity edema for a couple of months now. He reports that the edema goes down overnight but by noon it is quite tight and painful at times. He has been seen by nurse visit and was given compression stockings but he says that makes the pain hurt worse. He says he does not add any salt to his food but does not actually keep track of his sodium intake. HPI: Non-VA Primary Care Provider [facility]- Dr. 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 ACCIDENTS OR INJURIES WHILE ON ACTIVE DUTY: SURGICAL HX: Coronary artery stent LAD EGD 2018 (PUD) 08/2022 antritis, small hital hernia C- spine fusion Left finger (trauma) Left foot Tonsillectomy colonoscopy 08/2022 tubular adenomas x3 Problem List: 1) Peptic ulcer disease 2) CAD - Coronary Artery Disease ([facility] [id number]) 3) Gout ([facility] [id number]) 4) History of cardiac catheterization 5) History of surgery 6) Ex-smoker 7) Anxiety ([facility] [id number]) 8) Plantar fasciitis 9) Polyp Colon ([facility] [id number]) 10) Insomnia 11) Irritable bowel syndrome characterized by alternating bowel habit 12) Anxiety ([facility] [id number]) 13) Bilateral osteoarthritis of knees 14) Obesity ([facility] [id number]) 15) Vitamin D Deficiency ([facility] [id number]) 16) Hypercholesterolemia ([facility] [id number]) Active Outpatient Medications (including Supplies): Active Non-VA Medications Status 1) Non-VA BUSPIRONE HCL 10MG TAB 10MG BY MOUTH THREE TIMES A ACTIVE DAY Indication: FOR ANXIETY 2) Non-VA CLOPIDOGREL BISULFATE 75MG TAB 75MG ACTIVE Indication: FOR ACUTE CORONARY SYNDROME 3) Non-VA DICLOFENAC NA 1% TOP GEL 2 GM TO AFFECTED AREA(S) ACTIVE FOUR TIMES A DAY Indication: FOR PAIN 4) Non-VA FAMOTIDINE 20MG TAB 20MG BY MOUTH TWICE A DAY ACTIVE Indication: FOR GASTROESOPHAGEAL REFLUX DISEASE 5) Non-VA METOPROLOL SUCCINATE 100MG SA TAB 50MG BY MOUTH ONCE ACTIVE A DAY 6) Non-VA OLANZAPINE 5MG TAB 2.5MG BY MOUTH ONCE A DAY ACTIVE OBJECTIVE: Vital Signs Temperature: 97.7 F [36.5 C] (09/07/2024 16:05) Respiratory Rate: 18 (09/28/2024 09:10) Pulse Rate: 84 (09/28/2024 09:10) Blood Pressure: 128/72 (09/28/2024 09:10) HT: 67.0 in [170.2 cm] (09/28/2024 09:10) WT: 207.0 lb [93.89 kg] (09/28/2024 09:10) BMI: 32.5 96% (09/28/2024 09:10) Physical Exam General: NAD noted, A&Ox3, pleasant, appears stated age HEENT: NCAT, TM's clear, nares and oropharynx clear Neck: Supple with normal active ROM, without any lymphadenopathy Heart: RRR, no murmur, clicks, or rub Resp: Lungs CTA bilaterally, respirations even and unlabored Abdomen: Soft, non-distended, non-tender Ext: No clubbing, cyanosis, edema or obvious deformity Neuro: Grossly intact Psych: Affect normal, answers questions appropriately throughout visit Unable to obtain a chest x-ray today due to x-ray machine malfunction ECG today shows a normal sinus rhythm with a ventricular rate of [address] axis no acute ST changes he does have Q waves in the inferior leads consistent with his prior VT Assessment/Plan: Bilateral lower extremity edema-last echocardiogram January 2023 shows a normal EF of 55-60. Discussed with patient importance of sodium intake less than 2 g a day we will get him into follow-up with his web developer he has not seen since July last year. Encouraged him to wear his compression stockings CAD -stable no angina on EC 81mg aspirin, metoprolol, atorvastatin, and Plavix; again discussed cardiac diet as well as a low-sodium diet Hypercholesterolemia-again discussed diet and increased activity no meds at this time; he quit taking atorvastatin due to joint pain agreeable to start on Zetia today. Follow-up: As scheduled and/or as needed. Discussed with patient that [...] spent 30 minutes. /patricio/ Cherie Tracy MD [facility] Primary Care Signed: 09/28/2024 09:49 CHERIE TRACY W[facility]FStephani [facility] Sep 28, 2024 09:00 AM PRIMARY CARE NURSI ANGELA NOTE: LOCAL TITLE: PRIMARY CARE NURSING PROGRESS NOTE (TEXT) NURSING P STANDARD TITLE: PRIMARY CARE NURSING NOTE DATE OF NOTE: SEP 28, 2024@09:00 ENTRY DATE: SEP 28, 2024@09:01:10 AUTHOR: URSZULA CELIS EXP COSIGNER: URGENCY: STATUS: COMPLETED Established Patient GOOD,ISMAEL CRICKET IS A 59 YEAR OLD MALE BEING SEEN IN CLINIC SEP 28, 2024. REASON FOR VISIT: c/o bilateral lower extremity swelling x 1 month. Also c/o leg pain in the afternoon. Are you receiving care any where other than the [facility]? No HEALTH AND SURGICAL HISTORY: Does patient report using home oxygen? No CURRENT ACTIVE MEDICATIONS FOR REVIEW: Allergies/ADRs (Tool #5) FACILITY ALLERGY/ADR -------- No Remote Allergy/ADR Data available for this patient [facility] No Known Allergies Med. Reconciliation (Tool #1) INCLUDED IN THIS LIST: Alphabetical list of active outpatient prescriptions dispensed from this [facility] (local) and dispensed from another [facility] or [facility] facility (remote) as well as inpatient orders (local pending and active), local clinic medications, locally documented non-VA medications, and local prescriptions that have or been discontinued in the past 90 days. Non-VA Meds Last Documented On: Jan 18, 2023 NOTE The display of VA prescriptions dispensed from another [facility] or [facility] facility (remote) is limited to active outpatient prescription entries matched to National Drug File at the originating site and may not include some items such as investigational drugs, compounds, etc. NOT INCLUDED IN THIS LIST: Medications self-entered by the patient into personal health records (i.e. [facility]) are NOT included in this list. Non-VA medications documented outside this [facility], remote inpatient orders (regardless of status) and remote clinic medications are NOT included in this list. The patient and provider must always discuss medications the patient is taking, regardless of where the medication was dispensed or obtained. -------- OUTPT BUSPIRONE HCL 10MG TAB (Status = ) TAKE ONE TABLET BY MOUTH THREE TIMES A DAY FOR ANXIETY DO NOT TAKE WITH GRAPEFRUIT JUICE. Rx# [id number] Last Released: 07/31/23 Qty/Days Supply: 270/90 Rx Expiration Date: 07/29/24 Refills Remainin Indication: FOR ANXIETY OUTPT DICLOFENAC NA 1% TOP GEL (Status = ) APPLY 4 GM TO AFFECTED AREA(S) FOUR TIMES A DAY FOR OSTEOARTHRITIS DO NOT EXCEED MORE THAN 16 GRAMS DAILY TO ANY LOWER EXTREMITY JOINT. NOT MORE THAN 8 GRAMS DAILY TO ANY UPPER EXTREMITY JOINT. MAX 32GM/DAY OVER ALL JOINTS. (MEASURE DOSE WITH RULER ATTACHED INSIDE BOX) Rx# [id number] Last Released: 07/30/23 Qty/Days Supply: 300/90 Rx Expiration Date: 07/29/24 Refills Remainin Indication: FOR OSTEOARTHRITIS OUTPT FAMOTIDINE 20MG TAB (Status = ) TAKE ONE TABLET BY MOUTH TWICE A DAY FOR GASTROESOPHAGEAL REFLUX DISEASE Rx# [id number] Last Released: 07/31/23 Qty/Days Supply: 180/90 Rx Expiration Date: 07/29/24 Refills Remainin Indication: FOR GASTROESOPHAGEAL REFLUX DISEASE OUTPT OLANZAPINE 5MG TAB (Status = ) TAKE ONE-HALF TABLET BY MOUTH ONCE A DAY FOR BIPOLAR DISORDER Rx# [id number] Last Released: 07/31/23 Qty/Days Supply: 45/ Rx Expiration Date: 07/29/24 Refills Remainin Indication: FOR BIPOLAR DISORDER -------- SUPPLIES -------- PHARMACY TERMS AND POSSIBLE PATIENT ACTIONS INPT = [facility] inpatient order IV = UT intravenous medication OUTPT = [facility] outpatient prescription PHARMACY POSSIBLE PATIENT TERMS EXPLANATION ACTIONS -------- ACTIVE A prescription that can be If you have refills, filled at the local [facility] pharmacy. you may request a refill of this prescription from your VA pharmacy. CLINIC A medication you received during If you have questions a visit to a [facility] clinic or about this medication emergency department. contact your [facility] healthcare team. DISCONTINUED A prescription your provider has Contact your VA stopped. It is no longer healthcare team if you available to be sent to you or need more of this picked up at the [facility] pharmacy medication. window. A prescription which is [...] the VA. Or, it may be an odry-tag-rytdebs (OTC), herbal, dietary supplements or sample medication. [...] before this medication now. you run out. == Medication list reviewed with Patient Patient/Caregiver reports taking meds other than as directed/ordered: reports he gets his medications non-al [facility] [place], [place]. Clopidogrel 75mg daily Metoprolol Succinate 50mg daily IS PATIENT TAKING ANY OVER THE COUNTER MEDICATIONS, SUCH VITAMINS OR HERBAL SUPPLEMENTS, INCLUDING ANY MEDICATIONS PRESCRIBED BY ANOTHER PHYSICIAN? No Does patient have any new allergies to report since last visit? NO VITALS: TEMPERATURE: 97.7 F [36.5 C] (09/07/2024 16:05) BP: 128/79 (09/07/2024 16:05) RESP: 17 (07/28/2024 08:41) PULSE: 78 (09/07/2024 16:05) HT: 67 in [170.2 cm] (01/15/2024 09:25) WT: 210.9 lb [95.66 kg] (07/28/2024 08:41) BMI: 33.1 PAIN ASSESSMENT: (Most Recent Pain Score in Vitals Package: 0 (07/28/2024 08:41) ) The patient indicated that they and [...] Now let us serve you. At the [facility], we strive to provide you with [...] Not At All SPIRITUAL ASSESSMENT: Are there mu-ism practices or spiritual concerns you want the cattle sorter, your physician, and other health care team members to immediately know about? No Patient advised to call the clinic for any concerns, questions, or symptoms. Patient and/or caregiver verbalized understanding of plan of care. Sexual Orientation - CP,L,N,P,PH,PS,S,U: The patient thinks of their sexual orientation as: Straight or Heterosexual /patricio/ URSZULA CELIS LPN Signed: 09/28/2024 09:11 URSZULA CELIS [facility]
--- OUTSIDE RECORDS SUMMARY | 2024-12-14 07:45 | XMS_ITS | Encounter Summary ---
Author Name [facility] of [facility] [place] [facility] [place] Organization [place] Address [address] [place] [address] Care Team Providers Care Military Analyst Name Role Phone RON ANAND Primary Care Provider Unavailabl e Selected Encounter This section includes the information on record at [place] for the Encounter. Date/Time Encounter Type Encounter Description Reason Provider Source Dec 14, 2024 12:45 PM COMPRE OPH EXAM NEW PT 1/> OPTOMETRY ICD-10-CM H52.223 Regular astigmatism, bilateral CALLAHAN,DEE S IHE Encounter Template Text not used by [place] Assessments - Encounter Diagnoses This section includes the primary and secondary diagnoses documented for the Encounter. Date/Time Primary/Secondary Diagnosis Diagnosis Name Provider Source Dec 14, 2024 01:19 PM PRIMARY Regular astigmatism, bilateral CALLAHAN,DEE S [place] [facility] Dec 14, 2024 01:19 PM SECONDARY Presbyopia CALLAHAN,DEE S [place] [facility] Plan of Treatment: Future Appointments (+ 6 months) and Future Tests (+/- 45 days) The Plan of Treatment section includes future care activities for the patient from all [place] treatmentfacilities. This section includes future appointments and future orders which are active, pending or scheduled. Future Appointments This section includes appointments that were scheduled to occur 6 months from the date of the Encounter, up to a maximum of 20 appointments. The data comes from all [place] treatment facilities. Appointment Date/Time Appointment Type Appointme nt Facility Name Dec 21, 2024 11:30 AM [facility] Jan 04, 2025 10:30 AM AMBULATORY - MEDICINE [facility] 2025 12:15 PM AMBULATORY - MEDICINE [facility] 2025 01:00 PM AMBULATORY - MEDICINE [facility] Jan 11, 2025 11:30 AM AMBULATORY - MEDICINE [facility] Jan 21, 2025 11:00 AM AMBULATORY - MEDICINE [place] Active, Pending, and Scheduled Orders This section includes a listing of several types of active, pending, and scheduled orders, including clinic medications orders, diagnostic test orders, procedure orders and consult orders; where the start date of the order is 45 days before the date of the Encounter or 45 days after the date of theEncounter. The data comes from all [place] treatment facilities. Test Date/Time Test Type Test Details Facility Name Jan 13, 2025 10:06 AM Consult Order [facility] [id number] Cons Trimmer Sorter's Choice [facility] Radiology Reports: +/- 30 days of the encounter Radiology Reports For cases when an order for radiology services may have been completed prior to the date of the Encounter, the report list includes the Radiology Reports that were completed up to 30 days before dateof the Encounter. For cases when an order for radiology services may have been completed after the date of the Encounter, the report list also includes the Radiology Reports that were completed up to30 days after date of the Encounter. The data comes from all [facility]. Date/Time Radiology Report Provider Source 2025 11:02 AM SPINE CERVICAL MIN 4 OR 5 VIEWS: ISMAEL MARLOW [id number] -[id number] M Exm Date: 2025@11:02 Req Phys: MOLINA BATEMAN Pat Loc: V15 PB VVC [facility] 01 (Req'g Lo Img Loc: PB-XRAY PALMYRA Service: [place] [address] (Case [id number] COMPLETE) SPINE CERVICAL MIN 4 OR 5 VIEWS (RAD Detailed) CPT:65303 Reason for Study: Neck pain Clinical History: New onset; remote hx of fusion Report Status: Verified Date Reported: 2025 Date Verified: 2025 Residue Furnace Operator E-Sig: Report: Cervical spine 7 views HISTORY: Neck pain new onset, remote history of fusion DATE: 2025 FINDINGS: There are degenerative changes present. Narrowing C4-5, C5-6 disc spaces. There appears to be bony fusion and discectomy as well as fusion with plate and screws anteriorly C6-7 level. No fracture or dislocation. No bony destruction. Narrowing neural foramen on the right C3-4 level and bilaterally at the C5-6 level. There is reversal of the normal lordotic curve. Calcification in the ligamentum nuchae. Impression: 1. Moderate degenerative arthritis 2. Postop changes C6-7 level 3. Narrowing C4-5 and C5-6 disc spaces 4. Reversal of the normal lordotic curve suspicious for muscle and/or ligamentous injury Primary Interpreting Staff: MERLYN JOHN, RADIOLOGIST (Residue Furnace Operator, no e-sig) /MERLYN Mart [facility] Encounter Notes: All associated encounter notes This section contains the clinical notes associated to the Encounter. Date/Time Encounter Note(s) Provider Source Dec 14, 2024 01:15 PM EYE NOTE: LOCAL TITLE: EYEGLASS PRESCRIPTION NOTE PB STANDARD TITLE: EYE NOTE DATE OF NOTE: DEC 14, 2024@13:15 ENTRY DATE: DEC 14, 2024@13:15:35 AUTHOR: DEE CALLAHAN EXP COSIGNER: URGENCY: STATUS: COMPLETED DATE OF LAST EYE EXAM:DEC 14, 2024 +0.25-1.99c976 -0.50-1.13f953 +2.25 add note opposite signs LENS MATERIAL: LENS TYPE: PAL - Previous wearer Other Add Ons: Additional Comments: clear, plastic lenses /patricio/ Dee Callahan OD Chief Medical Physicist, [facility] Signed: 12/14/2024 13:16 DEE CALLAHAN [place] [facility] Dec 14, 2024 12:47 PM OPHTHALMOLOGY E & M NOTE: LOCAL TITLE: OPHTHALMIC EXAM PB STANDARD TITLE: OPHTHALMOLOGY E & M NOTE DATE OF NOTE: DEC 14, 2024@12:47 ENTRY DATE: DEC 14, 2024@12:47:44 AUTHOR: CHON SCOTT EXP COSIGNER: URGENCY: STATUS: COMPLETED SUBJECTIVE: 59 year old seen in clinic. CHIEF COMPLAINT: pt is new to this eye clinic. glasses from last exam. pt not sure if vision has changed. lenses scratched. DEJESUS's after reading for a while. Last eye exam: 7 yrs Private 12/23 dfe Surgery: none Eye medications: none Lab: Hgb A1C: HGA1C 5.8 % 07/22/2024 08:18 Diabetic: pt states no ALLERGIES: Patient has answered NKA VISUAL ACUITY OD: 20/25-1 ph: No Improv OS: 20/30-1 ph: 25-0 With present glasses pupils rapd - Dilated with 1% Tropicamide @12:55 Pt Ed on SE of DFE Post myd shield provided Pt voiced understanding WEARING OD:-1.50 -2.00 X 108 OS:plano -1.50 X 060 ADD: +1.75 Lens Type: Progressive Intraocular Pressures (iCare) R 12 L 14 /es/ CHON Garcia [employer] Signed: 12/14/2024 12:59 CHON SCOTT [facility] Dec 14, 2024 07:21 AM OPHTHALMOLOGY E & M NOTE: LOCAL TITLE: OPHTHALMIC EXAM PB STANDARD TITLE: OPHTHALMOLOGY E & M NOTE DATE OF NOTE: DEC 14, 2024@07:21 ENTRY DATE: DEC 14, 2024@07:21:41 AUTHOR: DEE CALLAHAN EXP COSIGNER: URGENCY: STATUS: COMPLETED SUBJECTIVE: 59 year old seen in clinic. CHIEF COMPLAINT: pt is new to this eye clinic. glasses from last exam. pt not sure if vision has changed. lenses scratched. DEJESUS's after reading for a while. Last eye exam: 7 yrs Private 12/23 dfe Surgery: none Eye medications: none Lab: Hgb A1C: HGA1C 5.8 % 07/22/2024 08:18 Diabetic: pt states no ALLERGIES: Patient has answered NKA VISUAL ACUITY OD: 20/25-1 ph: No Improv OS: 20/30-1 ph: 25-0 With present glasses pupils rapd - Dilated with 1% Tropicamide @12:55 Pt Ed on SE of DFE Post myd shield provided Pt voiced understanding WEARING OD:-1.50 -2.00 X 108 OS:plano -1.50 X 060 ADD: +1.75 Lens Type: Progressive Intraocular Pressures (iCare) R 12 L 14 (Copied Tech note above, Agree with findings, continue Doctor note below.) SUBJECTIVE CC:59M, pt is new to this clinic. C/O some headaches after reading for awhile. Feels he needs to get updated. Having more trouble seeing in the dist and up close as well. OHX: CRICKET:as above Hab RX:as above LDFE:12/23 Injuries:+FB Surgeries:- Oc Meds:- Glc:- DR:- AMD:- MHX: DM:- Last A1c:5.8 07/25 HTN:+ HrtDis:+ LungDis:- Cancer:- See Cover sheet for complete with allergies FmHx: Glc - AMD - OBJECTIVE: 1% Tropicamide 1 gtt ou @ (pt dilated by tech as above) Pt educated on SE of DFE/Post myd shield given ENTERING: VA:as above Pupils:as above CVF:FTFC ou EOMs:FROM ou REFRACTION: OD:+0.25-1.76q874 20/20 OS:-0.50-1.60x012 20/20 +2.25 add 20/20 ou SLEx: Adnexa/Lids/Lashes:wnl ou Tear Film:wnl ou Conj:ping n/t ou Cornea:cl ou, -staining ou Sclera:wnl ou Iris:wnl ou A/C:d/q ou Lens:tr ns ou DFE: Vitreous:cl ou Maculae:wnl ou Vessels:wnl ou ONH:dist margins ou C/D:0.3/0.3 Periphery:flat and intact ou ASSESSMENT: 1)Reg Astig, PResbyopia ou PLAN: 1)Spec Rx given OD:+0.25-1.09c717 20/20 OS:-0.50-1.28w055 20/20 +2.25 add 20/20 ou Ordered new Va glasses today, plastic, progressive, clear lenses RTC PRN /es/ Dee Callahan, ROASLINE Chief Medical Physicist, [facility] Signed: 12/14/2024 13:19 DEE CALLAHAN [place] [facility]
--- OUTSIDE RECORDS SUMMARY | 2025-01-04 05:30 | XMS_ITS | Encounter Summary ---
Author Name [facility] [place] [facility] [place] Organization [place] Address [address] [place] [address] Care Team Providers Care Electrification Adviser Name Role Phone CHERIE TRACY Primary Care Provider Unavailabl e Selected Encounter This section includes the information on record at [place] for the Encounter. Date/Time Encounter Type Encounter Description Reason Provider Source Jan 04, 2025 10:30 AM SYNCH AUDIO-VIDEO EST SF 10 GENERAL INTERNAL MEDICINE ICD-10-CM M54.2 Cervicalgia DEANNA BATEMAN Radha Encounter Template Text not used by [place] Assessments - Encounter Diagnoses This section includes the primary and secondary diagnoses documented for the Encounter. Date/Time Primary/Secondary Diagnosis Diagnosis Name Provider Source Jan 04, 2025 10:42 AM PRIMARY Cervicalgia DEANNA BATEMAN [facility] Plan of Treatment: Future Appointments (+ 6 months) and Future Tests (+/- 45 days) The Plan of Treatment section includes future care activities for the patient from all [place] treatmentfacilities. This section includes future appointments and future orders which are active, pending or scheduled. Future Appointments This section includes appointments that were scheduled to occur 6 months from the date of the Encounter, up to a maximum of 20 appointments. The data comes from all [place] treatment facilities. Appointment Date/Time Appointment Type Appointme nt Facility Name 2025 12:15 PM AMBULATORY - MEDICINE [facility] 2025 01:00 PM AMBULATORY - MEDICINE [facility] Jan 11, 2025 11:30 AM AMBULATORY - MEDICINE [facility] Jan 21, 2025 11:00 AM AMBULATORY MEDICINE [facility] Active, Pending, and Scheduled Orders This section includes a listing of several types of active, pending, and scheduled orders, including clinic medications orders, diagnostic test orders, procedure orders and consult orders; where the start date of the order is 45 days before the date of the Encounter or 45 days after the date of theEncounter. The data comes from all [facility]. Test Date/Time Test Type Test Details Facility Name Jan 13, 2025 10:06 AM Consult Order [facility]UNITY CARE-IMAGING MAGNETIC [facility] IM[facility]-AUTO [id number] Cons Sexual Health Physician's Choice [facility] Radiology Reports: +/- 30 days of the [...] the Encounter. The data comes from all [facility]. Date/Time Radiology Report Provider Source 2025 11:02 AM SPINE CERVICAL MIN 4 OR 5 VIEWS: ISMAEL MARLOW [id number] -1965 M Exm Date: 2025@11:02 Req Phys: DEANNA BATEMAN Pat Loc: V15 PB VVC CCC 01 (Req'g Lo Img Loc: PB-XRAY [place] Service: [place] [address] (Case [id number] COMPLETE) SPINE CERVICAL MIN 4 OR 5 VIEWS (RAD Detailed) CPT:04326 Reason for Study: Neck pain Clinical History: New onset; remote hx of fusion Report Status: Verified Date Reported: 2025 Date Verified: 2025 Restaurant Hostess E-Sig: Report: Cervical spine 7 views HISTORY: [...] injury Primary Interpreting Staff: MERLYN JOHN, RADIOLOGIST (Restaurant Hostess, no e-sig) /MERLYN Mart [facility] Encounter Notes: All associated encounter notes This section contains the clinical notes associated to the Encounter. Date/Time Encounter Note(s) Provider Source Jan 04, 2025 10:25 AM URGENT CARE NOTE: LOCAL TITLE: V15 [facility] URGENT CARE VISIT STANDARD TITLE: URGENT CARE NOTE DATE OF NOTE: JAN 04, 2025@10:25 ENTRY DATE: JAN 04, 2025@10:26:08 AUTHOR: DEANNA BATEMAN COSIGNER: URGENCY: STATUS: COMPLETED PRIMARY CARE TEMPLATE Patient is a 59 year old (Dec) WHITE MALE. Patient's identity was verified with at least 2 personal identifiers. *Appointment type: Type of Visit: Video Visit: Telehealth Disclosure: Visit conducted by synchronous telehealth. Patient verbal consent obtained. Location/emergency number confirmed. Environment surveyed and all participants identified. Virtual conference room locked. Emergency contact information was obtained as follows: Confirmed [facility] Non-[facility] location for this appointment: Patient's current address [address] [place] [id number] Patient's Phone Number: [phone] No 'Next of Kin' data found Chief Complaint: Neck pain History of Present Illness: Pain is base of neck on 01/01. Pain is constant and getting worse daily. Radiates down to Left shoulder and arm. Raising arm up helps with the pain. Had neck surgery about 20 yrs ago. No weakness. Occasional numbness but does not last very long. Has been taking some allieve which helps some but not much. Had some muscle spasms yesterday but did not last long. PMH/Active Problem List 1) Peptic ulcer disease 2) CAD - Coronary Artery Disease ([facility] 38247512) 3) Gout ([facility] [id number]) 4) History of cardiac catheterization 5) Anxiety ([facility] [id number]) 6) Plantar fasciitis 7) Polyp Colon ([facility] [id number]) 8) Insomnia 9) Irritable bowel syndrome characterized by alternating bowel habit 10) Anxiety ([facility] [id number]) 11) Bilateral osteoarthritis of knees 12) Obesity ([facility] [id number]) 13) Vitamin D Deficiency ([facility] [id number]) 14) Hypercholesterolemia ([facility] [id number]) SOCIAL HISTORY Family History: MEDICATIONS: Active and Recently Outpatient Medications (including Supplies): Active Outpatient Medications Status 1) BUSPIRONE HCL 10MG TAB TAKE ONE TABLET BY MOUTH THREE TIMES ACTIVE (S) A DAY DO NOT TAKE WITH GRAPEFRUIT JUICE. Indication: FOR ANXIETY Active Non-VA Medications Status 1) Non-VA BUSPIRONE HCL 10MG TAB 10MG BY MOUTH THREE TIMES A ACTIVE DAY Indication: FOR ANXIETY 2) Non-VA CLOPIDOGREL BISULFATE 75MG TAB 75MG ACTIVE Indication: FOR ACUTE CORONARY SYNDROME 3) Non-VA DICLOFENAC NA 1% TOP GEL 2 GM TO AFFECTED AREA(S) ACTIVE FOUR TIMES A DAY Indication: FOR PAIN 4) Non-VA EZETIMIBE 10MG TAB 10MG BY MOUTH ONCE A DAY ACTIVE Indication: FOR HIGH CHOLESTEROL 5) Non-VA FAMOTIDINE 20MG TAB 20MG BY MOUTH TWICE A DAY ACTIVE Indication: FOR GASTROESOPHAGEAL REFLUX DISEASE 6) Non-VA METOPROLOL SUCCINATE 100MG SA TAB 50MG BY MOUTH ONCE ACTIVE A DAY 7) Non-VA OLANZAPINE 5MG TAB 2.5MG BY MOUTH ONCE A DAY ACTIVE 8 Total Medications Compared newly ordered medications and medication changes to active medications and non-VA medications, and then reviewed medications with patient and/or caregiver. All discrepancies noted and reconciled. Patient, or caregiver, was provided with reconciled medications list and advised to provide to all non VA providers. Potential adverse reactions of new medications were discussed with the patient. REVIEW OF SYSTEMS PHYSICAL EXAMINATION VITALS Most recent vital signs: No data available BMI: 32.5 ASSESSMENT/PLAN 1. Neck pain - Hx of cervical fusion; recommend xrays and PCP follow up for possible PT. Patient states understanding. Comm Care order for xrays placed. RTC for PCP in 2-3 weeks. Shared medical decision making occurred during this visit with the . Questions answered and [facility] is agreeable with treatment plan. DISPOSITION: Issue resolved with Clinical Contact Center appointment FOLLOW UP: Video visit: total time spent 15 minutes. /patricio/ Deanna Bateman MD Physician Signed: 01/04/2025 10:42 Receipt Acknowledged By: 01/04/2025 12:17 /patricio/ Cherie Tracy MD [facility] Primary Care 01/05/2025 10:52 /patricio/ DEANNA SALEEM [facility]
--- OUTSIDE RECORDS SUMMARY | 2025-01-07 08:00 | XMS_ITS | Encounter Summary ---
Author Name [facility] [place] Organization [facility] [place] Address [address] [place] [address] Care Team Providers Care Resident Medical Officer Name Role Phone RON TRACY Primary Care Provider Unavailjose e Selected Encounter This section includes the information on record at [place] for the Encounter. Date/Time Encounter Type Encounter Description Reason Provider Source 2025 01:00 PM OFF/OP EST OCTOBER X REQ PHY/QHP PRIMARY CARE/MEDICINE ICD-10-CM M54.2 Cervicalgia ANSELMO ABDI Radha Encounter Template Text not used by [place] Assessments - Encounter Diagnoses This section includes the primary and secondary diagnoses documented for the Encounter. Date/Time Primary/Secondary Diagnosis Diagnosis Name Provider Source 2025 12:39 PM PRIMARY CervicalPRISCILLA Bennett [facility] Plan of Treatment: Future Appointments (+ 6 months) and Future Tests (+/- 45 days) The Plan of Treatment section includes future care activities for the patient from all [place] treatmentfacilities. This section includes future appointments and future orders which are active, pending or scheduled. Future Appointments This section includes appointments that were scheduled to occur 6 months from the date of the Encounter, up to a maximum of 20 appointments. The data comes from all [place] treatment facilities. Appointment Date/Time Appointment Type Appointme nt Facility Name Jan 11, 2025 11:30 AM [facility] Jan 21, 2025 11:00 AM AMBULATORY - MEDICINE [facility]I MIRANDA [facility] Active, Pending, and Scheduled Orders This section includes a listing of several types of active, pending, and scheduled orders, including clinic medications orders, diagnostic test orders, procedure orders and consult orders; where the start date of the order is 45 days before the date of the Encounter or 45 days after the date of theEncounter. The data comes from all [place] treatment facilities. Test Date/Time Test Type Test Details Facility Name Jan 13, 2025 10:06 AM Consult Order [facility]-IMAG[facility] MAGNETIC [facility]ON[facility] IMAGING-AUTO [id number] Cons [place] Tipper's Choice [facility] Vital Signs: All taken on the encounter date This section contains inpatient and outpatient Vital Signs collected on the date of the Encounter. Date/Time Temperature Pulse Blood Pressure Respiratory Rate SP02 Pain Height Weight Body Mass Index Source 2025 12:09 PM 97.5 F 80 /min 119/72 mm[Hg] 18 /min 96 % 7 [facility] Social History: Smoking Status (Most current) and Tobacco Use (All prior to encounter date) This section includes the most current, and the historical, smoking and tobacco- related health factors from the [place] facility where the Encounter took place. Current Smoking Status This section includes the most current smoking, or tobacco-related health factor, from the [place] facility where the Encounter took place. Date/Time Current Smoking Status Comment Facil ity Jul 28, 2024 08:30 AM VA-TOBACCO USE FORMER CIGARETTES [facility] Tobacco Use History This section includes a history of the smoking, or tobacco-related health factors, that were collected on or before the date of the Encounter. The data comes from the [place] facility where the Encounter took place. Date/Time Smoking Status/Tobacco Use Comment F acility Jul 28, 2024 08:30 AM VA-TOBACCO USE FORMER CIGARETTES [facility] Jul 29, 2023 08:30 AM VA-TOBACCO FORMER USER [facility] Jul 29, 2023 08:30 AM VA-TOBACCO QUIT 1 TO < 5 YRS [facility] Aug 02, 2022 11:01 AM VA-TOBACCO FORMER USER [facility] Aug 02, 2022 11:01 AM VA-TOBACCO QUIT 1 TO < 5 YRS [facility] Radiology Reports: +/- 30 days of the [...] the Encounter. The data comes from all [place] treatment facilities. Date/Time Radiology Report Provider Source 2025 11:02 AM SPINE CERVICAL MIN 4 OR 5 VIEWS: ISMAEL MARLOW [id number] -1965 M Exm Date: 2025@11:02 Req Phys: MOLINA BATEMAN Pat Loc: V15 PB VVC CCC 01 (Req'g Lo Img Loc: PB-XRAY [place] Service: [place] [address] (Case [id number] COMPLETE) SPINE CERVICAL MIN 4 OR 5 VIEWS (RAD Detailed) CPT:10556 Reason for Study: Neck pain Clinical History: New onset; remote hx of fusion Report Status: Verified Date Reported: 2025 Date Verified: 2025 Latex Ribbon Machine Operator E-Sig: Report: Cervical spine 7 views [...] injury Primary Interpreting Staff: MERLYN JOHN, RADIOLOGIST (Latex Ribbon Machine Operator, no e-sig) /MERLYN Mart [facility] Encounter Notes: All associated encounter notes This section contains the clinical notes associated to the Encounter. Date/Time Encounter Note(s) Provider Source 2025 12:17 PM NURSING PROGRESS N OTE: LOCAL TITLE: NURSING NOTE PB STANDARD TITLE: NURSING PROGRESS NOTE DATE OF NOTE: 2025@12:17 ENTRY DATE: 2025@12:22:19 AUTHOR: PRISCILLA ABDI COSIGNER: URGENCY: STATUS: COMPLETED This is a 60 year old MALE with known Allergies as noted: Patient has answered NKA On the following Active Medications: Active Outpatient Medications (including Supplies): Active Outpatient [...] ONCE A DAY ACTIVE 8 Total Medications C/C: cervicalgia x 6 days. S: The presented to the clinic today with the complaint of new onset neck pain x 6 days and to have x ray done, Xray was ordered by [facility] urgent care visit on 01/04/25. The reports that he woke up on Saturday01/01/25 and the left side of the neck was stiff and hurting. Reports Saturday it was continuing to get worse and by Saturday it was so bad that I could not hardly get out of bed just pushing up to get out of bed caused him severe pain. The reports that the pain is radiating down the left side of his neck into his left shoulder and upper arm. The also reports that the only relief he gets is when he rests his left arm across his head. The has also been taking alive for pain the does report that he had neck surgery about 20 years ago but has not had any issues since. Denies any injury or activity out of his normal. O/A: The ambulated to the exam room without assistance, gait is steady. OBJECTIVE: Vital Signs Temperature: 97.5 F [36.4 C] (2025 12:09) Respiratory Rate: 18 (2025 12:09) Pulse Rate: 80 (2025 12:09) Blood Pressure: 119/72 (2025 12:09) HT: 67.0 in [170.2 cm] (09/28/2024 09:10) WT: 207.0 lb [93.89 kg] (09/28/2024 09:10) BMI: 32.5 96% (2025 12:09) P: Discussed the above symptoms and assessment with Dr. Tracy who stepped into the room to examine the , she aslo reviewed Xray and talked to the about those results. Let the know she was going to do an MRI and called out some medications for the to local pharmacy. Visit escalated to PCP visit. The voiced understanding, is in agreement with the plan and has no further questions or complaints at this time. The ambulated to the exit in satisfactory manner. RTC: as needed /patricio/ Priscilla Abdi RN,BSN VICKIE Chapman Signed: 2025 12:39 Receipt Acknowledged By: 01/12/2025 08:27 /patricio/ MD Klaus Latif [facility] Primary [facility] PRISCILLA ABDI
--- OUTSIDE RECORDS SUMMARY | 2025-01-11 06:30 | XMS_ITS | Encounter Summary ---
Author Name [facility] [place] Organization [place] Address [address] [place] [address] Care Team Providers Care Commercial Lines Assistant Name Role Phone RON ANAND Primary Care Provider Unavailabl e Selected Encounter This section includes the information on record at [place] for the Encounter. Date/Time Encounter Type Encounter Description Reason Provider Source Jan 11, 2025 11:30 AM PSYTX W PT 60 MINUTES [facility] ICD-10-CM F41.9 Anxiety disorder, unspecified YANNI ODONNELL IHRadha Encounter Template Text not used by [place] Assessments - Encounter Diagnoses This section includes the primary and secondary diagnoses documented for the Encounter. Date/Time Primary/Secondary Diagnosis Diagnosis Name Provider Source Jan 12, 2025 10:26 PM PRIMARY Anxiety disorder, unspecified DANNIE ODONNELL [facility] Plan of Treatment: Future Appointments (+ 6 months) and Future Tests (+/- 45 days) The Plan of Treatment section includes future care activities for the patient from all [place] treatmentfacilities. This section includes future appointments and future orders which are active, pending or scheduled. Future Appointments This section includes appointments that were scheduled to occur 6 months from the date of the Encounter, up to a maximum of 20 appointments. The data comes from all [place] treatment facilities. Appointment Date/Time Appointment Type Appointme nt Facility Name Jan 21, 2025 11:00 AM AMBULATORY - MEDICINE [facility] MIRANDA [facility] Jul 12, 2025 10:00 AM AMBULATORY - MEDICINE [facility] Active, Pending, and Scheduled Orders This section includes a listing of several types of active, pending, and scheduled orders, including clinic medications orders, diagnostic test orders, procedure orders and consult orders; where the start date of the order is 45 days before the date of the Encounter or 45 days after the date of theEncounter. The data comes from all [place] treatment facilities. Test Date/Time Test Type Test Details Facility Name Jan 13, 2025 10:06 AM Consult Order COMMUNITY CARE-IMAGING MAGNETIC RESONANCE IMAGING-AUTO [id number] Cons Profiling Machine Setup Operator's Choice [facility] Social History: Smoking Status (Most current) and Tobacco Use (All prior to encounter date) This section includes the most current, and the historical, smoking and tobacco- related health factors from the [place] facility where the Encounter took place. Current Smoking Status This section includes the most current smoking, or tobacco-related health factor, from the [place] facility where the Encounter took place. Date/Time Current Smoking Status Comment Facil ity Jul 28, 2024 08:30 AM VA-TOBACCO USE FORMER CIGARETTES [facility] Tobacco Use History This section includes a history of the smoking, or tobacco-related health factors, that were collected on or before the date of the Encounter. The data comes from the [place] facility where the Encounter took place. Date/Time Smoking Status/Tobacco Use Comment F acility Jul 28, 2024 08:30 AM VA-TOBACCO USE FORMER CIGARETTES [facility] Jul 29, 2023 08:30 AM VA-TOBACCO FORMER USER [facility] Jul 29, 2023 08:30 AM VA-TOBACCO QUIT 1 TO < 5 YRS [facility] Aug 02, 2022 11:01 AM VA-TOBACCO FORMER USER [facility] Aug 02, 2022 11:01 AM VA-TOBACCO QUIT 1 TO < 5 YRS [facility] Radiology Reports: +/- 30 days of the [...] the Encounter. The data comes from all [place] treatment facilities. Date/Time Radiology Report Provider Source 2025 11:02 AM SPINE CERVICAL MIN 4 OR 5 VIEWS: ISMAEL MARLOW [id number] -1965 M Exm Date: 2025@11:02 Req Phys: MOLINA BATEMAN Pat Loc: V15 PB VVC CCC 01 (Req'g Lo Img Loc: PB-XRAY [place] Service: [place] [address] (Case [id number] COMPLETE) SPINE CERVICAL MIN 4 OR 5 VIEWS (RAD Detailed) CPT:47593 Reason for Study: Neck pain Clinical History: New onset; remote hx of fusion Report Status: Verified Date Reported: 2025 Date Verified: 2025 Cutter In E-Sig: Report: Cervical spine 7 views HISTORY: [...] injury Primary Interpreting Staff: MERLYN JOHN, RADIOLOGIST (Cutter In, no e-sig) /MERLYN Mart [facility]
--- OUTSIDE RECORDS SUMMARY | 2025-01-13 11:52 | XMS_ITS ---
Author Name [facility] [place] Organization [place] Address [address] [place] [address] Care Team Providers Care Tariff Compiler Name Role Phone RON ANAND Primary Care Provider Unavailabl e Selected Encounter This section includes the information on record at [place] for the Encounter. Date/Time Encounter Type Encounter Description Reason Pro vider Source Jan 13, 2025 04:52 PM Outpatient Encounter ADMIN PAT ACTIVTIES (MASNONCT) IHE Encounter Template Text not used by [place] Plan of Treatment: Future Appointments (+ 6 months) and Future Tests (+/- 45 days) The Plan of Treatment section includes future care activities for the patient from all [place] treatmentfacilities. This section includes future appointments and future orders which are active, pending or scheduled. Future Appointments This section includes appointments that were scheduled to occur 6 months from the date of the Encounter, up to a maximum of 20 appointments. The data comes from all [place] treatment facilities. Appointment Date/Time Appointment Type Appointme nt Facility Name Jan 21, 2025 11:00 AM AMBULATORY - MEDICINE [facility] Jul 12, 2025 10:00 AM AMBULATORY - MEDICINE [facility] Active, Pending, and Scheduled Orders This section includes a listing of several types of active, pending, and scheduled orders, including clinic medications orders, diagnostic test orders, procedure orders and consult orders; where the start date of the order is 45 days before the date of the Encounter or 45 days after the date of theEncounter. The data comes from all [place] treatment [facility]. Test Date/Time Test Type Test Details Facility Name Jan 13, 2025 10:06 AM Consult Order COMMUNITY CARE-IMAGING MAGNETIC [facility] IMAGING-AUTO [id number] Cons Director Digital Marketing's Choice [facility] Radiology Reports: +/- 30 days [...] the Encounter. The data comes from all [place] treatment facilities. Date/Time Radiology Report Provider Source 2025 11:02 AM SPINE CERVICAL MIN 4 OR 5 VIEWS: KASHMIRISMAELMODESTA HARLEY [id number] -1965 M Exm Date: 2025@11:02 Req Phys: MOLINA BATEMAN Pat Loc: V15 PB VVC CCC 01 (Req'g Lo Img Loc: PB-XRAY [place] Service: [place] [address] (Case [id number] COMPLETE) SPINE CERVICAL MIN 4 OR 5 VIEWS (RAD Detailed) CPT:41325 Reason for Study: Neck pain Clinical History: New onset; remote hx of fusion Report Status: Verified Date Reported: 2025 Date Verified: 2025 Marketing Consultant E-Sig: Report: Cervical spine 7 views HISTORY: [...] injury Primary Interpreting Staff: MERLYN JOHN, RADIOLOGIST (Marketing Consultant, no e-sig) /MERLYN Mart [facility] Encounter Notes: All associated encounter notes This section contains the clinical notes associated to the Encounter. Date/Time Encounter Note(s) Provider Source Jan 13, 2025 04:52 PM ADMINISTRATIVE NOT E: LOCAL TITLE: ADMINISTRATIVE NOTE PB STANDARD TITLE: ADMINISTRATIVE NOTE DATE OF NOTE: JAN 13, 2025@16:52 ENTRY DATE: JAN 13, 2025@16:52:14 AUTHOR: ISMAEL LOPEZ EXP COSIGNER: URGENCY: STATUS: COMPLETED [facility] pharmacy has called multiple times regarding the 's zetia rx and has faxed over rx refill requests. this author had the refill requests reviewed to see if it was appropriate to have refilled and it was faxed back to [facility] as requested. /patricio/ Ismael Lopez Lead Director Bioinformatics Signed: 01/13/2025 16:55 ISMAEL LOPEZ [facility]
--- OUTSIDE RECORDS SUMMARY | 2025-01-14 07:18 | XMS_ITS | Encounter Summary ---
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 Date/Time Encounter Type Encounter Description Reason Pro vider Source Jan 14, 2025 12:18 PM Outpatient Encounter ADMIN PAT ACTIVTIES (MASNONCT) I[facility] Encounter Template Text not used by [place] Plan of Treatment: Future Appointments (+ 6 [...] 2025 11:00 AM [facility] Jul 12, 2025 10:00 AM AMBULATORY - MEDICINE [facility] Active, Pending, and Scheduled Orders This section includes a listing of several types of active, pending, and scheduled orders, including clinic medications orders, diagnostic test orders, procedure orders and consult orders; where the start date of the order is 45 days before the date of the Encounter or 45 days after the date of theEncounter. The data comes from all [place] treatment [facility]. Test Date/Time Test Type Test Details Facility Name Jan 13, 2025 10:06 AM Consult Order [facility] [id number] Cons Physician Assistant Certified's Choice [facility] Radiology Reports: +/- 30 days of [...] the Encounter. The data comes from all [place] treatment facilities. Date/Time Radiology Report Provider Source 2025 11:02 AM SPINE CERVICAL MIN 4 OR 5 VIEWS: KASHMIRISMAELMODESTA HARLEY [id number] -[id number] M Exm Date: 2025@11:02 Req Phys: MOLINA BATEMAN Pat Loc: V15 PB VVC CCC 01 (Req'g Lo Img Loc: PB-XRAY POLK Service: [place] [address] (Case [id number] COMPLETE) SPINE CERVICAL MIN 4 OR 5 VIEWS (RAD Detailed) CPT:66775 Reason for Study: Neck pain Clinical History: New onset; remote hx of fusion Report Status: Verified Date Reported: 2025 Date Verified: 2025 Chief Crna E-Sig: Report: Cervical spine 7 views HISTORY: [...] injury Primary Interpreting Staff: MERLYN JOHN, RADIOLOGIST (Chief Crna, no e-sig) /MERLYN Mart [facility] Encounter Notes: All associated encounter notes This section contains the clinical notes associated to the Encounter. Date/Time Encounter Note(s) Provider Source Jan 14, 2025 11:18 AM ADMINISTRATIVE NOT E: LOCAL TITLE: CCC: SCHEDULING ADMINISTRATION STANDARD TITLE: ADMINISTRATIVE NOTE DATE OF NOTE: JAN 14, 2025@11:18:16 ENTRY DATE: JAN 14, 2025@11:18:16 AUTHOR: FRANKY ESPARZA COSIGNER: URGENCY: STATUS: COMPLETED Caller Verification Caller/Recipient Relation to Patient: Other If Other Describe Relation to Patient: TECH Caller Name: [facility] Administrative Administrative Note Reason: Other Administrative Note Comments: CALLED STATING THAT HE IS NEEDING HIS MEDICATION FOR PAIN SENT TO [facility]ARM [place]IDE THE [place]. HE IS ASKING FOR CALL BACK TO DISCUSS HOW TO GET THIS TAKEN CARE OF. PLEASE RETURN CALL WHEN AVAILABLE. IMPORTANT: This note was created by [facility] staff. Please do not alert the staff member by adding them as a signer for future communications. Alerts are not monitored by this user. /patricio/ FRANKY SERRA Signed: 01/14/2025 11:18 Receipt Acknowledged By: * AWAITING SIGNATURE * VIGNESH SULLIVAN * AWAITING SIGNATURE * GABINO COSTA * AWAITING SIGNATURE * TIM ZAMARRIPA JENNIFER S [place]
--- OUTSIDE RECORDS SUMMARY | 2025-01-15 02:13 | XMS_ITS | Continuity of Care Document ---
Author Name [facility] Organization [facility] Care Team Providers Care Operations Asst Name Role Phone [facility] Unavailable Unavailable Problems Combined list of problems from Department of Defense and Veterans Affairs facilities. It does not include entries that were removed or entered in error. Problem Status Onset Date Problem Type Date of Resolution Comments Source Anxiety (SCT [id number]) Active Condition [place] [facility] Bilateral osteoarthritis of knees Active [place] [facility] CAD - Coronary Artery Disease (SCT [id number]) Active Condition [place] [facility] Gout (SCT [id number]) Active Condition [place] [facility] History of cardiac catheterization Active Condition Sep 13, 2022 Entered By: ROX CARSON Comment: 05/22/2021 - Cardiac cath with a coronary artery stent placed by Dr. Justin in [place], [place] [facility] Hypercholesterolemia (SCT [id number]) Active Condition [place] [facility] Insomnia Active Condition [place] [facility] Irritable bowel syndrome characterized by alternating bowel habit Active Condition [place] [facility] Obesity (SCT [id number]) Active Condition [place] [facility] Peptic ulcer disease Active Condition Sep 13, 2022 Entered By: ROX CARSON Comment: [place] follows up with [facility] in [facility] 2022 Entered By: ROX CARSON Comment: Hx of EGD in approx 2019 at [facility] in [place] - dx PUDJul 2022 Entered By: RAJ ANAND Comment: EGD 08/2022 showed small HH and gastritis [place] [facility] Plantar fasciitis Active Condition Ma y 2022 Entered By: RAJ ANNAD Comment: left [place] [facility] Polyp Colon (SCT [id number]) Active Condition 2023 Entered By: RAJ ANAND Comment: 09/28/2022 tubular adneomas [place] [facility] Vitamin D Deficiency ([facility] [id number]) Active Condition [place] [facility] Ex-smoker Inactive Condition 09/28/2024 Mar 16, 2 023 Entered By: ROX CAROSN Comment: Smoked 1ppd for 30 years - Quit smoking in 2021 [place] [facility] Diagnosis: ICD-10-CM F41.9 Anxiety disorder, unspecified Active Diagnosis [facility] Diagnosis: ICD-10-CM M54.2 Cervicalgia Active Diagnosis [facility] Diagnosis: ICD-10-CM H52.223 Regular astigmatism, bilateral Active Diagnosis [place] [facility] Diagnosis: ICD-10-CM R60.9 Edema, unspecified Active Diagnosis [facility] Diagnosis: ICD-10-CM I25.10 Athscl heart disease of [place] coronary artery w/o ang pctrs Active Diagnosis [facility] Diagnosis: ICD-10-CM L98.9 Disorder of the skin and subcutaneous tissue, unspecified Active Diagnosis [facility] Diagnosis: ICD-10-CM M17.0 Bilateral primary osteoarthritis of knee Active Diagnosis [facility] Diagnosis: ICD-10-CM M25.561 Pain in right knee Active Diagnosis [facility] Diagnosis: ICD-10-CM M25.569 Pain in unspecified knee Active Diagnosis [facility] Diagnosis: ICD-10-CM M79.606 Pain in leg, unspecified Active Diagnosis [facility] Diagnosis: ICD-10-CM K27.7 Chronic peptic ulcer, site unsp, w/o hemorrhage or perf Active Diagnosis [facility] Medications Combined list of outpatient medications from Department of Defense and Veterans Affairs facilities.Medications provided include 1) outpatient medications from the last 15 months, and 2) patient-reported medications. Medication Details Route Status Patient Instructions Prescription Expires Prescription Number Last Dispense Date Ordering Provider Order Date Order Qty Source BUSPIRONE HCL 10MG TAB TAKE ONE TABLET BY MOUTH THREE TIMES A DAY FOR ANXIETY DO NOT TAKE WITH GRAPEFRU IT JUICE. ORAL SUSPEND ED 11/13/2025 [id number] RON ANAND 2024 270 [facility] BUSPIRONE HCL 10MG TAB TAKE ONE TABLET BY MOUTH THREE TIMES A DAY ORAL ACTIVE KIKA, RON 2024 [facility] CLOPIDOGREL BISULFATE 75MG TAB TAKE ONE TABLET ACTIVE KIKA, [facility] 2024 [facility] DICLOFENAC NA 1% GEL,TOP APPLY 2 GM TO AFFECTED AREA(S) FOUR TIMES A DAY TOPICA L ACTIVE KIKA, [facility] 2024 [facility] EZETIMIBE 10MG TAB TAKE ONE TABLET BY MOUTH ONCE A DAY FOR HIGH CHOLESTE ROL ORAL DISCONT INUED BY PROVIDE R 09/29/2025 [id number] KIKA, [facility] 2024 90 [facility] EZETIMIBE 10MG TAB TAKE ONE TABLET BY MOUTH ONCE A DAY ORAL ACTIVE KIKA, [facility] 2024 [facility] FAMOTIDINE 20MG TAB TAKE ONE TABLET BY MOUTH TWICE A DAY ORAL ACTIVE KIKA, [facility] 2024 [facility] METOPROLOL SUCCINATE 100MG TAB,SA TAKE ONE-HALF TABLET BY MOUTH ONCE A DAY ORAL ACTIVE KIKA, [facility] 2024 [facility] OLANZAPINE 5MG TAB TAKE ONE-HALF TABLET BY MOUTH ONCE A DAY ORAL ACTIVE KIKA, [facility] 2024 [facility] Immunizations Combined list of available immunizations from the Department of [facility] and Veterans Affairs facilities. Immunization Series Date Given Administered By Site Reaction Lot Number CVX Code Drug Mental Health Assistant Status Comments Source ZOSTER RECOMBINANT 2 2022 SOFI SULLIVAN R LEFT DELTO ID [id number] 187 complet ed [facility] ZOSTER RECOMBINANT 1 2022 SOFI SULLIVAN R LEFT DELTO ID [id number] 187 complet ed [facility] TDAP 1 2021 115 complet ed HISTORICA L INFORMATI ON - FROM OTHER [facility] Results Combined list of recent chemistry, hematology and other laboratory results from Department of Defense and Veterans Affairs, ranging from 15 months to all on record, depending upon the facility. Order Name Results Value Reference Range Date Interpretation Specimen Comments Source PROST. SPECIFIC AG.(PB-STL ) PROSTATE SPECIFIC AG [MASS/VOLUM E] IN SERUM OR PLASMA 1.49 ng/mL 0 - 4 07/22 Specimen Type: SERUM No comment entered. Ordering Provider: BRENT ANAND MY Report Released Date/Time: Jul 22, 2024 08:17 AM Reporting Lab: [place] [facility] [address] [place] [address] Performing Lab: [place] [facility] [address] [place] [address] [facility] VITAMIN D, 25-HYDROXY 25-HYDROXYV ITAMIN D3 [MASS/VOLUM E] IN SERUM OR PLASMA 29.2 ng/mL 30 - 96 07/22 L Specimen Type: SERUM No comment entered. Ordering Provider: BRENT ANAND MY Report Released Date/Time: Jul 22, 2024 08:17 AM Reporting Lab: [place] [facility] [address] [place] [address] Performing Lab: [place] [facility] [address] [place] [address] [facility] HGA1C HEMOGLOBIN A1C/HEMOGLO BIN.TOTAL IN BLOOD 5.8 4.0 - 6.0 07/22 Specimen Type: BLOOD No comment entered. Ordering Provider: BRENT ANAND MY Report Released Date/Time: Jul 22, 2024 08:17 AM Reporting Lab: [place] [facility] [address] [place] [address] Performing Lab: [place] [facility] [address] [place] [address] [facility] COMPREHENS PAULINE METABOLIC PANEL CREATININE [MASS/VOLUM E] IN SERUM OR PLASMA 1.29 mg/dL 0.7 - 1.3 07/22 Specimen Type: PLASMA Comment: LDL calculation invalid when Triglyceride exceeds 250 mg/dl Ordering Provider: BRENT ANAND MY Report Released Date/Time: Jul 22, 2024 08:17 AM Reporting Lab: [place] [facility] [address] [place] [address] Performing Lab: [place] [facility] [address] [place] [address] [facility] COMPREHENS PAULINE METABOLIC PANEL UREA NITROGEN [MASS/VOLUM E] IN SERUM OR PLASMA 19 mg/dL 9 - 25 07/22 Specimen Type: PLASMA Comment: LDL calculation invalid when Triglyceride exceeds 250 mg/dl Ordering Provider: BRENT ANAND MY Report Released Date/Time: Jul 22, 2024 08:17 AM Reporting Lab: [place] [facility] [address] [place] [address] Performing Lab: [place] [facility] [address] [place] [address] [facility] COMPREHENS PAULINE METABOLIC PANEL GLUCOSE [MASS/VOLUM E] IN SERUM OR PLASMA 85 mg/dL 72 - 99 07/22 Specimen Type: PLASMA Comment: LDL calculation invalid when Triglyceride exceeds 250 mg/dl Ordering Provider: BRENT ANAND MY Report Released Date/Time: Jul 22, 2024 08:17 AM Reporting Lab: [place] [facility] [address] [place] [address] Performing Lab: [place] [facility] [address] [place] [address] [facility] COMPREHENS PAULINE METABOLIC PANEL SODIUM [MOLES/VOLU ME] IN SERUM OR PLASMA 139 meq/L 136 - 145 07/22 Specimen Type: PLASMA Comment: LDL calculation invalid when Triglyceride exceeds 250 mg/dl Ordering Provider: BRENT ANAND MY Report Released Date/Time: Jul 22, 2024 08:17 AM Reporting Lab: [place] [facility] [address] [place] [address] Performing Lab: [place] [facility] [address] [place] [address] [facility] COMPREHENS PAULINE METABOLIC PANEL POTASSIUM [MOLES/VOLU ME] IN SERUM OR PLASMA 4.4 meq/L 3.5 - 5 07/22 Specimen Type: PLASMA Comment: LDL calculation invalid when Triglyceride exceeds 250 mg/dl Ordering Provider: BRENT ANAND MY Report Released Date/Time: Jul 22, 2024 08:17 AM Reporting Lab: [place] [facility] [address] [place] [address] Performing Lab: [place] [facility] [address] [place] [address] [facility] COMPREHENS PAULINE METABOLIC PANEL CHLORIDE [MOLES/VOLU ME] IN SERUM OR PLASMA 105 meq/L 98 - 107 07/22 Specimen Type: PLASMA Comment: LDL calculation invalid when Triglyceride exceeds 250 mg/dl Ordering Provider: BRENT ANAND MY Report Released Date/Time: Jul 22, 2024 08:17 AM Reporting Lab: [place] [facility] [address] [place] [address] Performing Lab: [place] [facility] [address] [place] [address] [facility] COMPREHENS PAULINE METABOLIC PANEL CARBON DIOXIDE, TOTAL [MOLES/VOLU ME] IN SERUM OR PLASMA 24 meq/L 22 - 31 07/22 Specimen Type: PLASMA Comment: LDL calculation invalid when Triglyceride exceeds 250 mg/dl Ordering Provider: BRENT ANAND MY Report Released Date/Time: Jul 22, 2024 08:17 AM Reporting Lab: [place] [facility] [address] [place] [address] Performing Lab: [place] [facility] [address] [place] [address] [facility] COMPREHENS PAULINE METABOLIC PANEL CALCIUM [MASS/VOLUM E] IN SERUM OR PLASMA 9.6 mg/dL 8.4 - 10.4 07/22 Specimen Type: PLASMA Comment: LDL calculation invalid when Triglyceride exceeds 250 mg/dl Ordering Provider: BRENT ANAND MY Report Released Date/Time: Jul 22, 2024 08:17 AM Reporting Lab: [place] [facility] [address] [place] [address] Performing Lab: [place] [facility] [address] [place] [address] [facility] COMPREHENS PAULINE METABOLIC PANEL PROTEIN [MASS/VOLUM E] IN SERUM OR PLASMA 8.1 g/dL 6 - 8.6 07/22 Specimen Type: PLASMA Comment: LDL calculation invalid when Triglyceride exceeds 250 mg/dl Ordering Provider: BRENT ANAND MY Report Released Date/Time: Jul 22, 2024 08:17 AM Reporting Lab: [place] [facility] [address] [place] [address] Performing Lab: [place] [facility] [address] [place] [address] [facility] COMPREHENS PAUILNE METABOLIC PANEL ALBUMIN [MASS/VOLUM E] IN SERUM OR PLASMA 4.5 g/dL 3.4 - 5 07/22 Specimen Type: PLASMA Comment: LDL calculation invalid when Triglyceride exceeds 250 mg/dl Ordering Provider: BRENT ANAND MY Report Released Date/Time: Jul 22, 2024 08:17 AM Reporting Lab: [place] [facility] [address] [place] [address] Performing Lab: [place] [facility] [address] [place] [address] [facility] COMPREHENS PAULINE METABOLIC PANEL BILIRUBIN.T OTAL [MASS/VOLUM E] IN SERUM OR PLASMA 0.4 mg/dL 0.2 - 1.2 07/22 Specimen Type: PLASMA Comment: LDL calculation invalid when Triglyceride exceeds 250 mg/dl Ordering Provider: BRENT ANAND MY Report Released Date/Time: Jul 22, 2024 08:17 AM Reporting Lab: [place] [facility] [address] [place] [address] Performing Lab: [place] [facility] [address] [place] [address] [facility] COMPREHENS PAULINE METABOLIC PANEL ALKALINE PHOSPHATASE [ENZYMATIC ACTIVITY/VO LUME] IN SERUM OR PLASMA 60 U/L 40 - 150 07/22 Specimen Type: PLASMA Comment: LDL calculation invalid when Triglyceride exceeds 250 mg/dl Ordering Provider: BRENT ANAND MY Report Released Date/Time: Jul 22, 2024 08:17 AM Reporting Lab: [place] [facility] [address] [place] [address] Performing Lab: [place] [facility] [address] [place] [address] [facility] COMPREHENS PAULINE METABOLIC PANEL ASPARTATE AMINOTRANSF ERASE [ENZYMATIC ACTIVITY/VO LUME] IN SERUM OR PLASMA 29 U/L 5 - 34 07/22 Specimen Type: PLASMA Comment: LDL calculation invalid when Triglyceride exceeds 250 mg/dl Ordering Provider: BRENT ANAND MY Report Released Date/Time: Jul 22, 2024 08:17 AM Reporting Lab: [place] [facility] [address] [place] [address] Performing Lab: [place] [facility] [address] [place] [address] [facility] COMPREHENS PAULINE METABOLIC PANEL ALANINE AMINOTRANSF ERASE [ENZYMATIC ACTIVITY/VO LUME] IN SERUM OR PLASMA 56 U/L 8 - 40 07/22 H Specimen Type: PLASMA Comment: LDL calculation invalid when Triglyceride exceeds 250 mg/dl Ordering Provider: BRENT ANAND MY Report Released Date/Time: Jul 22, 2024 08:17 AM Reporting Lab: [place] [facility] [address] [place] [address] Performing Lab: [place] [facility] [address] [place] [address] [facility] COMPREHENS PAULINE METABOLIC PANEL GLOMERULAR FILTRATION RATE/1.73 SQ M.PREDICTED [VOLUME RATE/AREA] IN SERUM, PLASMA OR BLOOD BY CREATININE- BASED FORMULA (CKD-EPI 2020) 64 07/22 Specimen Type: PLASMA Comment: LDL calculation invalid when Triglyceride exceeds 250 mg/dl Ordering Provider: BRENT ANAND MY Report Released Date/Time: Jul 22, 2024 08:17 AM Reporting Lab: [place] [facility] [address] [place] [address] Performing Lab: [place] [facility] [address] [place] [address] [facility] CHOLESTERO L PANEL (PB) CHOLESTEROL [MASS/VOLUM E] IN SERUM OR PLASMA 217 mg/dL 0 - 200 07/22 H Specimen Type: PLASMA Comment: LDL calculation invalid when Triglyceride exceeds 250 mg/dl Ordering Provider: BRENT ANAND MY Report Released Date/Time: Jul 22, 2024 08:17 AM Reporting Lab: [place] [facility] [address] [place] [address] Performing Lab: [place] [facility] [address] [place] [address] [facility] CHOLESTERO L PANEL (PB) TRIGLYCERID E [MASS/VOLUM E] IN SERUM OR PLASMA 297 mg/dL 0 - 150 07/22 H Specimen Type: PLASMA Comment: LDL calculation invalid when Triglyceride exceeds 250 mg/dl Ordering Provider: BRENT ANAND MY Report Released Date/Time: Jul 22, 2024 08:17 AM Reporting Lab: [place] [facility] [address] [place] [address] Performing Lab: [place] [facility] [address] [place] [address] [facility] CHOLESTERO L PANEL (PB) CHOLESTEROL IN LDL [MASS/VOLUM E] IN SERUM OR PLASMA BY CALCULATION commen tmg/dL 07/22 Specimen Type: PLASMA Comment: LDL calculation invalid when Triglyceride exceeds 250 mg/dl Ordering Provider: BRENT ANAND MY Report Released Date/Time: Jul 22, 2024 08:17 AM Reporting Lab: [place] [facility] [address] [place] [address] Performing Lab: [place] [facility] [address] [place] [address] [facility] CHOLESTERO L PANEL (PB) CHOLESTEROL IN HDL [MASS/VOLUM E] IN SERUM OR PLASMA 36.0 mg/dL 40 07/22 L Specimen Type: PLASMA Comment: LDL calculation invalid when Triglyceride exceeds 250 mg/dl Ordering Provider: BRENT ANAND MY Report Released Date/Time: Jul 22, 2024 08:17 AM Reporting Lab: [place] [facility] [address] [place] [address] Performing Lab: [place] [facility] [address] [place] [address] [facility] CHOLESTERO L PANEL (PB) CHOLESTEROL IN HDL/CHOLEST JOHANNY.TOTAL [MASS RATIO] IN SERUM OR PLASMA 16.6 25 07/22 Specimen Type: PLASMA Comment: LDL calculation invalid when Triglyceride exceeds 250 mg/dl Ordering Provider: BRENT ANAND MY Report Released Date/Time: Jul 22, 2024 08:17 AM Reporting Lab: [place] [facility] [address] [place] [address] Performing Lab: [place] [facility] [address] [place] [address] [facility] CHOLESTERO L PANEL (PB) CHOLESTEROL IN LDL [MASS/VOLUM E] IN SERUM OR PLASMA BY DIRECT ASSAY 166.8 mg/dL 0 - 99.9 07/22 H Specimen Type: PLASMA Comment: LDL calculation invalid when Triglyceride exceeds 250 mg/dl Ordering Provider: BRENT ANAND MY Report Released Date/Time: Jul 22, 2024 08:17 AM Reporting Lab: [place] [facility] [address] [place] [address] Performing Lab: [place] [facility] [address] [place] [address] [facility] TSH (MA-PB) THYROTROPIN [UNITS/VOLU ME] IN SERUM OR PLASMA 1.938 u[IU]/ mL 0.47 - 5 07/22 Specimen Type: SERUM No comment entered. Ordering Provider: BRENT ANAND MY Report Released Date/Time: Jul 22, 2024 08:17 AM Reporting Lab: [place] [facility] [address] [place] [address] Performing Lab: [place] [facility] [address] [place] [address] [facility] CBC LEUKOCYTES [#/VOLUME] IN BLOOD BY AUTOMATED COUNT 8.4 10*3/u L 3.6 - 11.2 07/22 Specimen Type: BLOOD No comment entered. Ordering Provider: BRENT ANAND MY Report Released Date/Time: Jul 22, 2024 08:17 AM Reporting Lab: [place] [facility] [address] [place] [address] Performing Lab: [place] [facility] [address] [place] [address] [facility] CBC ERYTHROCYTE S [#/VOLUME] IN BLOOD BY AUTOMATED COUNT 5.04 10*6/u L 4.10 - 5.70 07/22 Specimen Type: BLOOD No comment entered. Ordering Provider: BRENT ANAND MY Report Released Date/Time: Jul 22, 2024 08:17 AM Reporting Lab: [place] [facility] [address] [place] [address] Performing Lab: [place] [facility] [address] [place] [address] [facility] CBC HEMOGLOBIN [MASS/VOLUM E] IN BLOOD 16.8 g/dL 13.1 - 16.8 07/22 Specimen Type: BLOOD No comment entered. Ordering Provider: BRENT ANAND MY Report Released Date/Time: Jul 22, 2024 08:17 AM Reporting Lab: [place] [facility] [address] [place] [address] Performing Lab: [place] [facility] [address] [place] [address] [facility] CBC HEMATOCRIT [VOLUME FRACTION] OF BLOOD 48.5 38.2 - 48.4 07/22 H Specimen Type: BLOOD No comment entered. Ordering Provider: BRENT ANAND MY Report Released Date/Time: Jul 22, 2024 08:17 AM Reporting Lab: [place] [facility] [address] [place] [address] Performing Lab: [place] [facility] [address] [place] [address] [facility] CBC MCV [ENTITIC VOLUME] BY AUTOMATED COUNT 96.2 fL 80.0 - 100.0 07/22 Specimen Type: BLOOD No comment entered. Ordering Provider: BRENT ANAND MY Report Released Date/Time: Jul 22, 2024 08:17 AM Reporting Lab: [place] [facility] [address] [place] [address] Performing Lab: [place] [facility] [address] [place] [address] [facility] CBC MCH [ENTITIC MASS] BY AUTOMATED COUNT 33.3 pg 27.0 - 34.0 07/22 Specimen Type: BLOOD No comment entered. Ordering Provider: BRENT ANAND MY Report Released Date/Time: Jul 22, 2024 08:17 AM Reporting Lab: [place] [facility] [address] [place] [address] Performing Lab: [place] [facility] [address] [place] [address] [facility] CBC MCHC [MASS/VOLUM E] BY AUTOMATED COUNT 34.6 g/dL 33.0 - 36.0 07/22 Specimen Type: BLOOD No comment entered. Ordering Provider: BRENT ANAND MY Report Released Date/Time: Jul 22, 2024 08:17 AM Reporting Lab: [place] [facility] [address] [place] [address] Performing Lab: [place] [facility] [address] [place] [address] [facility] CBC PLATELETS [#/VOLUME] IN BLOOD BY AUTOMATED COUNT 360 10*3/u L 150 - 400 07/22 Specimen Type: BLOOD No comment entered. Ordering Provider: BRENT ANAND MY Report Released Date/Time: Jul 22, 2024 08:17 AM Reporting Lab: [place] [facility] [address] [place] [address] Performing Lab: [place] [facility] [address] [place] [address] [facility] CBC PLATELET MEAN VOLUME [ENTITIC VOLUME] IN BLOOD BY AUTOMATED COUNT 10.2 fL 7.5 - 11.2 07/22 Specimen Type: BLOOD No comment entered. Ordering Provider: BRENT ANAND MY Report Released Date/Time: Jul 22, 2024 08:17 AM Reporting Lab: [place] [facility] [address] [place] [facility] Performing Lab: [place] [facility] [address] [place] [id number] [facility] CBC ERYTHROCYTE DISTRIBUTIO N WIDTH [RATIO] BY AUTOMATED COUNT 13.0 11.8 - 15.1 07/22 Specimen Type: BLOOD No comment entered. Ordering Provider: BRENT ANAND MY Report Released Date/Time: Jul 22, 2024 08:17 AM Reporting Lab: [place] [facility] [address] [place] [address] Performing Lab: [place] [facility] [address] [place] [address] [facility] CBC LYMPHOCYTES /100 LEUKOCYTES IN BLOOD BY AUTOMATED COUNT 27.6 07/22 Specimen Type: BLOOD No comment entered. Ordering Provider: BRENT ANAND MY Report Released Date/Time: Jul 22, 2024 08:17 AM Reporting Lab: [place] [facility] [address] [place] [address] Performing Lab: [place] [facility] [address] [place] [address] [place] [facility] CBC MONOCYTES/1 00 LEUKOCYTES IN BLOOD BY AUTOMATED COUNT 11.2 07/22 Specimen Type: BLOOD No comment entered. Ordering Provider: BRENT ANAND MY Report Released Date/Time: Jul 22, 2024 08:17 AM Reporting Lab: [place] [facility] [address] [place] [address] Performing Lab: [place] [facility] [address] [place] [address] [facility] CBC NEUTROPHILS /100 LEUKOCYTES IN BLOOD BY AUTOMATED COUNT 58.1 07/22 Specimen Type: BLOOD No comment entered. Ordering Provider: BRENT ANAND MY Report Released Date/Time: Jul 22, 2024 08:17 AM Reporting Lab: [place] [facility] [address] [place] [address] Performing Lab: [place] [facility] [address] [place] [address] [place] [facility] CBC EOSINOPHILS /100 LEUKOCYTES IN BLOOD BY AUTOMATED COUNT 1.8 07/22 Specimen Type: BLOOD No comment entered. Ordering Provider: BRENT ANAND MY Report Released Date/Time: Jul 22, 2024 08:17 AM Reporting Lab: [place] [facility] [address] [place] [address] Performing Lab: [place] [facility] [address] [place] [address] [place] [facility] CBC BASOPHILS/1 00 LEUKOCYTES IN BLOOD BY AUTOMATED COUNT 1.1 07/22 Specimen Type: BLOOD No comment entered. Ordering Provider: BRENT ANAND MY Report Released Date/Time: Jul 22, 2024 08:17 AM Reporting Lab: [place] [facility] [address] [place] [address] Performing Lab: [place] [facility] [address] [place] [address] [facility] CBC LYMPHOCYTES [#/VOLUME] IN BLOOD BY AUTOMATED COUNT 2.31 10*3/u L 0.77 - 4.50 07/22 Specimen Type: BLOOD No comment entered. Ordering Provider: BRENT ANAND MY Report Released Date/Time: Jul 22, 2024 08:17 AM Reporting Lab: [place] [facility] [address] [place] [address] Performing Lab: [place] [facility] [address] [place] [address] [facility] CBC MONOCYTES [#/VOLUME] IN BLOOD BY AUTOMATED COUNT 0.94 10*3/u L 0.19 - 0.8 07/22 H Specimen Type: BLOOD No comment entered. Ordering Provider: BRENT ANAND MY Report Released Date/Time: Jul 22, 2024 08:17 AM Reporting Lab: [place] [facility] [address] [place] [address] Performing Lab: [place] [facility] [address] [place] [address] [facility] CBC NEUTROPHILS [#/VOLUME] IN BLOOD BY AUTOMATED COUNT 4.85 10*3/u L 2.10 - 8.00 07/22 Specimen Type: BLOOD No comment entered. Ordering Provider: BRENT ANAND MY Report Released Date/Time: Jul 22, 2024 08:17 AM Reporting Lab: [place] [facility] [address] [place] [address] Performing Lab: [place] [facility] [address] [place] [address] [facility] CBC EOSINOPHILS [#/VOLUME] IN BLOOD BY AUTOMATED COUNT 0.15 10*3/u L 0.00 - 0.60 07/22 Specimen Type: BLOOD No comment entered. Ordering Provider: BRENT ANAND MY Report Released Date/Time: Jul 22, 2024 08:17 AM Reporting Lab: [place] [facility] [address] [place] [id number] Performing Lab: [place] [facility] [address] [place] [address] [facility] CBC BASOPHILS [#/VOLUME] IN BLOOD BY AUTOMATED COUNT 0.09 10*3/u L 0.00 - 0.20 07/22 Specimen Type: BLOOD No comment entered. Ordering Provider: BRENT ANAND MY Report Released Date/Time: Jul 22, 2024 08:17 AM Reporting Lab: [place] [facility] [address] [place] [address] Performing Lab: [place] [facility] [address] [place] [address] [place] [address] [facility]OC CBC IMMATURE GRANULOCYTE S/100 LEUKOCYTES IN BLOOD BY AUTOMATED COUNT 0.2 07/22 Specimen Type: BLOOD No comment entered. Ordering Provider: BRENT ANAND MY Report Released Date/Time: Jul 22, 2024 08:17 AM Reporting Lab: [place] [facility] [address] [place] [address] Performing Lab: [place] [facility] [address] [place] [address] [facility] CBC IMMATURE GRANULOCYTE S [#/VOLUME] IN BLOOD BY AUTOMATED COUNT 0.02 10*3/u L 0.00 - 0.05 07/22 Specimen Type: BLOOD No comment entered. Ordering Provider: BRENT ANAND MY Report Released Date/Time: Jul 22, 2024 08:17 AM Reporting Lab: [place] [facility] [address] [place] [address] Performing Lab: [place] [facility] [address] [place] [address] [facility] CRP C REACTIVE PROTEIN [PRESENCE] IN SERUM OR PLASMA 0.05 mg/dL 0 - 0.5 09/03 Specimen Type: PLASMA No comment entered. Ordering Provider: BRENT ANAND MY Report Released Date/Time: Sep 04, 2023 03:41 PM Reporting Lab: [place] [facility] [address] [place] [address] Performing Lab: [place] [facility] [address] [place] [address] [facility] BRAIN NATRIURETI C PEPTIDE NATRIURETIC PEPTIDE B [MASS/VOLUM E] IN SERUM OR PLASMA 13 pg/mL 0 - 100 09/03 Specimen Type: PLASMA No comment entered. Ordering Provider: BRENT ANAND MY Report Released Date/Time: Sep 04, 2023 03:41 PM Reporting Lab: [place] [facility] [address] [place] [address] Performing Lab: [place] [facility] [address] [place] [address] [facility] CPK PROFILE (PB) CREATINE KINASE [ENZYMATIC ACTIVITY/VO LUME] IN SERUM OR PLASMA 109 U/L 30 - 200 09/03 Specimen Type: PLASMA No comment entered. Ordering Provider: BRENT ANAND MY Report Released Date/Time: Sep 04, 2023 03:41 PM Reporting Lab: [place] [facility] [address] [place] [address] Performing Lab: [place] [facility] [address] [place] [address] [facility] Vital Signs Combined list of inpatient and outpatient Vital Signs from Department of Defense and Veterans Affairs, ranging from 12 months to all on record, depending upon the facility. Vital Sign Value Date Comments Source SYSTOLIC BLOOD PRESSURE 119 2025 12:09:00 [facility] DIASTOLIC BLOOD PRESSURE 72 2025 12:09:00 [facility] PULSE OXIMETRY 96 % 2025 12:09:00 [facility] PAIN 7 2025 12:09:00 [facility] TEMPERATURE 97.5 2025 12:09:00 [facility] PULSE 80 2025 12:09:00 [facility] RESPIRATION 18 2025 12:09:00 [facility] SYSTOLIC BLOOD PRESSURE 128 09/28/2024 09:10:00 [facility] DIASTOLIC BLOOD PRESSURE 72 09/28/2024 09:10:00 [facility] PULSE OXIMETRY 96 09/28/2024 09:10:00 [place] [facility] WEIGHT 207.0 09/28/2024 09:10:00 [place] [facility] BMI 32 kg/m2 09/28/2024 09:10:00 [facility] [facility] PAIN 0 09/28/2024 09:10:00 [facility] [place] [facility] HEIGHT 67.0 09/28/2024 09:10:00 [facility] [place] [facility] PULSE 84 09/28/2024 09:10:00 [place] [facility] RESPIRATION 18 09/28/2024 09:10:00 [facility] [place] [facility] SYSTOLIC BLOOD PRESSURE 128 09/07/2024 16:05:00 [place] [facility] DIASTOLIC BLOOD PRESSURE 79 09/07/2024 16:05:00 [place] [facility] TEMPERATURE 97.7 09/07/2024 16:05:00 [place] [facility] PULSE 78 09/07/2024 16:05:00 [place] [facility] SYSTOLIC BLOOD PRESSURE 118 07/28/2024 08:41:00 [place] [facility] DIASTOLIC BLOOD PRESSURE 73 07/28/2024 08:41:00 [place] [facility] PULSE OXIMETRY 97 07/28/2024 08:41:00 [facility] WEIGHT 210.9 07/28/2024 08:41:00 [place] [facility] BMI 33 kg/m2 07/28/2024 08:41:00 [place] [facility] PAIN 0 07/28/2024 08:41:00 [place] [facility] TEMPERATURE 97.8 07/28/2024 08:41:00 [place] [facility] PULSE 73 07/28/2024 08:41:00 [place] [facility] RESPIRATION 17 07/28/2024 08:41:00 [place] [facility] SYSTOLIC BLOOD PRESSURE 132 06/05/2024 17:05:03 [place] [facility] DIASTOLIC BLOOD PRESSURE 88 06/05/2024 17:05:03 [facility] [place] [facility] PULSE OXIMETRY 98 06/05/2024 17:05:03 [place] [facility] TEMPERATURE 97.5 06/05/2024 17:05:03 [place] [facility] PULSE 80 06/05/2024 17:05:03 [place] [facility] RESPIRATION 18 06/05/2024 17:05:03 [facility] Encounters Combined list of: 1) Encounters from Department of Veterans Affairs facilities going backup to the last 18 months, not all VA inpatient encounters are included; 2) Encounters from the Department of Defense facilities going backup to 280 months. Location Location Details Encounter Type Encounter Number Reason For Visit Attending Provider ADM Date DC Date Status Disposition Source [facility] PSYTX W PT 60 MINUTES [id number] Diagnos is: ICD-10- CM F41.9 Anxiety disorde r, unspeci fied BELLE,CHR ISSOM J 07/18 [facility] Outpatient Encounter [id number] 07/23 [facility] [id number] 07/25 [facility] En[facility] [id number] 07/26 [facility] OFFICE O/P EST MOD 30 MIN [id number] Diagnos is: ICD-10- CM K27.7 Chronic peptic ulcer, site unsp, w/o hemorrh age or perf Maria G ANAND 07/29 [facility] 60 MINUTES [id number] Diagnos is: ICD-10- CM F41.9 Anxiety disorde r, unspeci fied BELLE,CHR ISSOM J 08/06 [facility] [place] [facility] Outpatient Encounter [id number] 08/15 [place] [facility] Outpatient Encounter [id number] 08/16 [place] [place] [facility] PSYTX W PT 60 MINUTES [id number] Diagnos is: ICD-10- CM F41.9 Anxiety disorde r, unspeci fied BELLE,[facility] ISSOM J 08/20 [facility] Outpatient Encounter [id number] 08/27 [facility] HC PRO PHONE CALL 5-10 MIN [id number] Diagnos is: ICD-10- CM M79.606 Pain in leg, unspeci fied BLANCA SULLIVAN R 09/01 [facility] Outpatient Encounter [id number] SARAH PORTILLO RIL L 09/02 [facility] PSYTX W PT 60 MINUTES [id number] Diagnos is: ICD-10- CM F41.9 Anxiety disorde r, unspeci fied BELLE,[facility] ISSOM J 09/02 [facility] OFFICE O/P EST LOW 20 MIN [id number] Diagnos is: ICD-10- CM R60.9 Edema, unspeci fied KIKA,T SEAN 09/03 [facility] Outpatient Encounter [id number] 09/08 [facility] HC PRO PHONE CALL 5-10 MIN [id number] Diagnos is: ICD-10- CM M79.606 Pain in leg, unspeci fied LAURIEBLANCA CORONA R 09/16 [facility] Outpatient Encounter [id number] 09/24 [facility] HC PRO PHONE CALL 5-10 MIN [id number] Diagnos is: ICD-10- CM M25.569 Pain in unspeci fied knee BLANCA SULLIVAN R 10/13 [facility] OFFICE O/P EST MOD 30 MIN [id number] Diagnos is: ICD-10- CM M25.561 Pain in right knee MARIBETH FELIX G 10/15 [facility] Outpatient Encounter [id number] 10/15 [facility] PSYTX W PT 30 MINUTES [id number] Diagnos is: ICD-10- CM F41.9 Anxiety disorde r, unspeci fied BELLE,CHR ISSOM J 10/21 [facility] Outpatient Encounter [id number] 12/24 [facility] Outpatient Encounter [id number] 12/25 [facility] DRAIN/INJ JOINT/BURS A W/US [id number] Diagnos is: ICD-10- CM M17.0 Bilater al primary osteoar thritis of knee Maria G ANAND 01/14 [facility] Outpatient Encounter [id number] 01/14 [facility] Outpatient Encounter [id number] 01/27 [facility] HC PRO PHONE CALL 5-10 MIN [id number] Diagnos is: ICD-10- CM L98.9 Disorde r of the skin and subcuta neous tissue, unspeci fied LAURIEBLANCA CORONA R 05/14 [facility] Outpatient Encounter [id number] 05/14 [facility] OFF/OP EST MAY X REQ PHY/QHP [id number] Diagnos is: ICD-10- CM L98.9 Disorde r of the skin and subcuta neous tissue, unspeci fied Neisha ZAMARRIPA 06/03 [facility] [place] [facility] Outpatient Encounter [id number] 06/16 [place] [facility] Outpatient Encounter [id number] 06/19 [facility] Outpatient Encounter [id number] 07/28 [facility] OFFICE O/P EST MOD 30 MIN [id number] Diagnos is: ICD-10- CM I25.10 Athscl heart disease of [place] coronar y artery w/o ang pctrs Maria G ANAND 07/28 [facility] Outpatient Encounter [id number] 09/02 [facility] OFF/OP EST MAY X REQ PHY/QHP [id number] Diagnos is: ICD-10- CM R60.9 Edema, unspeci fied CUSTRED,TO RRI J 09/07 [facility]P EST MOD 30 MIN [id number] Diagnos is: ICD-10- CM R60.9 Edema, unspeci fied KIKAMaria G ESCOBAR 09/28 [facility] Outpatient Encounter [id number] 09/28 [facility] Outpatient Encounter [id number] 10/06 [facility] [place] [facility] Outpatient Encounter [id number] 10/20 [place] [facility] Outpatient Encounter [id number] 11/11 [facility] Outpatient Encounter [id number] 11/13 [facility] Outpatient Encounter [id number] 11/27 [facility] PSYTX W PT 60 MINUTES [id number] Diagnos is: ICD-10- CM F41.9 Anxiety disorde r, unspeci fied BELLE,CHR ISSOM J 12/07 [facility] [place] 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 SYNCH AUDIO-VIDE O EST SF 10 [id number] Diagnos is: ICD-10- CM M54.2 Cervica lgia WHITE,LAURA IE M 01/04 [place] [facility] Outpatient Encounter [id number] 01/06 [facility] OFF/OP EST OCTOBER X REQ PHY/QHP [id number] Diagnos is: ICD-10- CM M54.2 Cervica lgia LAURIEBLANCA R 01/07 [facility] PSYTX W PT 60 MINUTES [id number] Diagnos is: ICD-10- CM F41.9 Anxiety disorde r, unspeci fied BELLE,CHR ISSOM J 01/11 [facility] Outpatient Encounter [id number] 01/13 [facility] [place] [facility] Outpatient Encounter [id number] 01/14 [place] [facility] Social History Combined list of available smoking, tobacco, and other social history from Department of Defense and Veterans Affairs facilities. Social History Type Response Date Comment Sourc e Tobacco smoking status NHIS VA-TOBACCO USE FORMER CIGARETTES 07/28/2024 [facility] of [facility] 07/28/2024 [facility] History of tobacco use VA-TOBACCO FORMER USER 07/29/2023 [facility] History of tobacco use MA-TOBACCO FORMER USER 08/02/2022 [facility] Plan of Care List of future care activities from Department of Veterans Affairs facilities. Additional future care activities may be listed in the Assessment and Plan section. Date/Time Care Activity Care Activity Detail Facili ty 01/21/2025 AMBULATORY - MEDICINE AMBULATORY - MEDICI [facility] MIRANDA [facility]
--- OUTSIDE RECORDS SUMMARY | 2025-01-15 07:14 | XMS_ITS | Clinical Summary ---
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 168 Tablet 0 08/20/2019 Active famotidine (PEPCID) 20 mg tablet Take 20 mg by mouth 2 times daily. Active sucralfate (CARAFATE) 1 gram tablet Take 1 Gram by mouth 4 times daily before meals and at bedtime. Active simvastatin (ZOCOR) 10 mg tablet Take 10 mg by mouth daily with supper. Active Active Problems Problem Noted Date Diagnosed Date Acute blood loss anemia 08/19/2019 GI bleed 08/19/2019 Acute upper GI hemorrhage Family History Medical History Relation Name Comments Diabetes Father Heart Disease Father Hypertension Father Healthy Mother Relation Name Status Comments Father Alive Mother Alive Social History Tobacco Use Types Packs/Day Years Used Date Smoking Tobacco: Every Day Cigarettes Smokeless Tobacco: Never Tobacco Cessation:Ready to Q uit: Not Asked; Counseling Given: Not Answered Alcohol Use Standard Drinks/Week Comments No 0 (1 standard drink = 0.6 oz pur e alcohol) Sex and Gender Information Value Date Recorded Sex Assigned at Not on file Legal 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 Gender Identity Not on file Sexual Orientation Not on file Last Filed Vital Signs Vital Sign Reading Time Taken Comments Blood Pressure 133/81 08/07/2022 9:00 AM [employer]AR PROJECT ENGINEER Pulse 77 08/07/2022 9:00 AM [employer]AR PROJECT ENGINEER Temperature 36.1 C (97 F) 08/07/2022 9:00 AM [employer]AR PROJECT ENGINEER Respiratory Rate 20 08/07/2022 9:00 AM SOLAR PROJECT ENGINEER Oxygen Saturation 96% 08/07/2022 9:00 AM SOLAR PROJECT ENGINEER Inhaled Oxygen Concentration - - Weight 84.8 kg (187 lb) 08/07/2022 8:02 AM [employer]AR PROJECT ENGINEER Height 170.2 cm (5' 7 ) 08/07/2022 8:02 AM [employer]AR PROJECT ENGINEER Body Mass Index 29.29 08/07/2022 8:02 AM [employer]AR PROJECT ENGINEER Plan of Treatment Health Maintenance Due Date Last Done Comments DTAP/TDAP/TD VACCINES (1 - Tdap) 1985 HEPATITIS B VACCINES (1 of 3 - 19+ 3-dose series) 12/29 COLORECTAL SCREENING 2011 Colorectal Cancer Screening 2011 FIT-DNA Q 3 years 2011 FIT/FOBT Q 1 year 2011 Flex Sig/CT Colonography Q 5 years 2011 ZOSTER VACCINE (2 of 2) 09/27/2022 08/02/2022 INFLUENZA VACCINE (#1) 2025 Insurance [place] CCN [facility] [address] [address]
--- OUTSIDE RECORDS SUMMARY | 2025-01-15 07:14 | XMS_ITS | Data Portability ---
Author Organization [facility] [place], [place], [facility] Address [address] [facility] [address] [place] [address] Care Team Providers Care Project Engineer Name Role Phone HARLEY LEMONS Primary Care Provider Unavailabl e Assessment No assessment recorded. Plan of Treatment Reminders Order Date Submit Date Provider Last Modified By Organization Details Last Modified Time Details Appointments None recorded. Lab None recorded. Referral None recorded. Procedures None recorded. Surgeries None recorded. Imaging None recorded. Medication Orders sertraline 50 mg tablet 2022 023 JAYDEN [facility], [address] [place] [address], [facility], [place], [address], 3 12:09:47 alprazolam 0.25 mg tablet 2022 [email or web address] [place] [address] Pharmacy, [address] [place] [address], [address], [place], [address], 3 12:10:22 Patient TargetsNo targets recorded. Patient InstructionsNo instructions recorded. Reason for Referral None Reported. Problems Name Problem SNOMED Code Status Onset Date Resolution Date Notes Provider Name and Address Organization Details Recorded Time Chronic abdominal pain 605206924 Active 023 Harley Lemons DO [address] [place] [address], [phone], [facility] 10:04:23 Anxiety 33750946 Active 023 Harley Lemons DO [address] [place] [address] [place], [phone], [facility], [place] 3 10:04:24 Multi vessel coronary artery disease 684031939 Active 023 Harley Lemons DO [address] [place], [address], [facility], [place] 3 10:04:43 Problem Notes None recorded. Medical Equipment None Reported. Allergies No known drug allergies Medications Name Sig Start Date Stop Date Status Note LastModified by Organization Details LastModified Time atorvastat in 40 mg tablet Take 1 tablet every day by oral route. active Not Available Not Available No t Available Xanax 0.5 mg tablet Take 1 tablet 3 times a day by oral route. active Not Available Not Available No t Available alprazolam 0.25 mg tablet Take 1 tablet 3 times a day by oral route as needed. 2022 active Not Available Not Available Not Avai lable pantoprazo le 40 mg tablet,del ayed release daily 2022 active Recorded 3 1:51PM by Harley Lemons DO, Office Visit; Refill Quantity: 90; Tablet; Not Available Not Available Not Available nitroglyce rin 0.[address] 1 TABLET UNDER TONGUE NEEDED FOR CHEST PAIN. REPEAT EVERY 5 MINUTES. IF NOT RESOLVED AFTER 2 DOSES, CALL 911 2022 active Not Available Not Available Not Avai lable sertraline 50 mg tablet Take 1 tablet every day by oral route for 90 days. 2022 active Not Available Not Available Not Avai lable metoprolol tartrate 25 mg tablet two times daily 2022 active Recorded 3 1:52PM by Harley Lemons DO, Office Visit; Not Available Not Available Not Available aspirin active Not Available Not Avail able Not Available metoprolol succinate ER 25 mg capsule sprinkle, ext. release 24 hr Take 1 capsule every day by oral route. active Not Available Not Available No t Available Vitals Date Recorded Body height Body mass index (BMI) Body weight Oxygen saturation Oxygen saturation in Arterial blood by Pulse oximetry Heart rate Respiratory rate Body temperature Systolic And Diastolic Provider Name and Address Organization Details Last Updated DateTime 3 170.18 cm 29.3 kg/m2 18554.7 7 g 98 % 98 % 88 /min 20 /min 97.4 [degF] 148/86 mm[Hg] HERSON LONG [facility], [place] 3 11:43:01 Social History None recorded. Functional Status Question Answer Note LastModified by Organizat ion Details LastModified Time Do you use any illicit or recreational drugs? No [email or web address] Information not available 11/06/2022 Do you or have you ever used any other forms of tobacco or nicotine? No Information not available 11/06/2022 What is your level of alcohol consumption? None [email or web address] Information not available 11/06/2022 Mental Status None recorded. Family History Nothing Reported. Medical History No medical history recorded. Past Encounters Encounter ID Performer Location Encounter Start Date Encounter Closed Date Diagnosis/Indication Diagnosis SNOMED-CT Code Diagnosis ICD10 Code Diagnosis Note [id number] Harley Lemons DO [facility] ([facility] [address] [place] [address] 11/06/2022 10:57:17 11/06/2022 18:26:40 Anxiety 40704605 F41.9 I reviewed records. I cousneld pt on my belief that his GI .symptoms are due to his sever anxiety post heart attack.Pt did not tolerate lexapro inthe past.we will start sertraline . continue prn xanax, but less fequent. f/u 1 mt or sooner with problems. Chronic ab dominal pain 417253278 R10.9 as above. I reviewed results of [facility].And I discussed with pt the likely cuase of his GI symptoms are his anxiety post [place]. Multi vess el coronary artery disease 032584189 I25.10 Health Concerns Section Related Observation LastModified by Organization Detai ls LastModified Time None Recorded Concern Status LastModified by Organization Details LastModified Time None Recorded Advance Directives Directive None Recorded Payers Insurance Date Sequence Insurance Name Policy Number Policy Jimenez Covered Member ID Jimenez Member ID Guarantor Name 11/05/2022 1 *SELF PAY* Cu rtis L Good Notes Date Note Type Note Provider Name and Address Organization Details Recorded Time 11/06/2022 text/html Anxiety/Depressi on Reported bypatient.Severity :stabilizing;incre ased anxiety;interferen ce with activities of daily living Onset/Timing:start ed: (May 2021) Modifying Factors:OTC medication Associated Symptoms:weight loss ( lbs);eating less;high irritability;anxie ty;stomach cramps;paranoid, feeling persecuted;excessi ve worrying;panic symptoms;posttraum atic stress disorder;unable to concentrate Pt has struggled with abd pain, reflux that came on after AMI a few years ago, we have treated him with PPIs, and I have tried to treat his anxiety which I counseled him was most likely the root cuase of his GI syptoms. He had been reluctant to accept this and has not followed up with me in nearly a year. He presented to the ER several weeks ago and they set him up with endoscopic evaluation.pt states he had colonoscopy and egd 2-3 weeks ago in [facility]. results came back normal, thinking his stomach issues are related to anxiety. He suggested pt to try anxiety medication. since taking xanax pt feels like he is able to eat, relax, feeling better overall but medication is not lasting as long as he would like. would like to discuss a different medication Harley Lemons, DO [address] [place] [address], [phone], [facility] 11/12/2022 10:04:56
--- OUTSIDE RECORDS SUMMARY | 2025-01-15 07:14 | XMS_ITS | Clinical Summary ---
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 6.7 Gram 0 6 Active bismuth subsalicylate (PEPTO-BISMOL ORAL) Take by mouth 1 time daily as needed. Active pantoprazole (Protonix) 40 mg Tablet, Delayed Release (E.C.) Take 1 Tablet (40 mg) by mouth 2 times daily. 168 Tablet 0 Active Active Problems Problem Noted Date Diagnosed Date GI bleed 08/19/2019 Acute blood loss anemia 08/19/2019 Acute upper GI hemorrhage Family History Medical History Relation Name Comments Diabetes Father Heart Disease Father Hypertension Father Healthy Mother Relation Name Status Comments Father Alive Mother Alive Social History Tobacco Use Types Packs/Day Years Used Date Smoking Tobacco: Every Day Cigarettes Smokeless Tobacco: Never Alcohol Use Standard Drinks/Week Comments No 0 (1 standard drink = 0.6 oz pur e alcohol) Sex and Gender Information Value Date Recorded Sex Assigned at Not on file Legal Sex Male 8:45 AM CDT Gender Identity Not on file Sexual Orientation Not on file Last Filed Vital Signs Vital Sign Reading Time Taken Comments Blood Pressure 116/70 08/20/2019 7:45 AM MARKETING FINANCIAL ANALYST Pulse 85 08/20/2019 7:45 AM MARKETING FINANCIAL ANALYST Temperature 36.1 C (97 F) 08/20/2019 7:45 AM MARKETING FINANCIAL ANALYST Respiratory Rate 17 08/20/2019 7:45 AM MARKETING FINANCIAL ANALYST Oxygen Saturation 98% 08/20/2019 7:45 AM MARKETING FINANCIAL ANALYST Inhaled Oxygen Concentration - - Weight 87.5 kg (193 lb) 08/20/2019 3:37 AM MARKETING FINANCIAL ANALYST Height 170.2 cm (5' 7 ) 08/18/2019 4:18 PM MARKETING FINANCIAL ANALYST Body Mass Index 30.23 08/18/2019 4:18 PM MARKETING FINANCIAL ANALYST Plan of Treatment Health Maintenance Due Date Last Done Comments DTAP/TDAP/TD VACCINES (1 - Tdap) 1985 HEPATITIS B VACCINES (1 of 3 - 19+ 3-dose series) 12/29 COLORECTAL SCREENING 2011 Colorectal Cancer Screening 2011 FIT-DNA Q 3 years 2011 FIT/FOBT Q 1 year 2011 Flex Sig/CT Colonography Q 5 years 2011 ZOSTER VACCINE (1 of 2) 01/08/2016 INFLUENZA VACCINE (#1) 2025 Insurance [facility] Advance Directives For more information, please contact: [phone] * Full Code (Latest Code Status on File) Date Activated Date Inactivated Comments 08/18/2019 11:52 PM 08/20/2019 2:09 PM
[2025-01-15 07:36] VITALS: BP 139/93; PULSE 77; RESP 20; TEMP 36.5; O2SAT 97; BMI 31.3
--- NOTE | 2025-01-15 07:53 | W.ED.NECK ---
HPI - Neck Pain/Injury General: Chief Complaint: Neck Pain/Injury Stated Complaint: neck pain Time Seen by Provider: 01/15/25 07:17 History of Present Illness: 60-year-old male presents emergency room with complaint of neck pain. Pain began 2 weeks ago when he woke up from sleep with pain in his neck radiating into his right shoulder. He was started on methocarbamol and tramadol did improve some he is run out of the tramadol and he has worsening pain. No history of any trauma or direct injury. His primary care set up an MRI that is in 4 days. No previous surgery to the neck. Related Data Home Medications ?Medication ?Instructions ?Recorded ?Confirmed buspirone 10 mg tablet 10 mg PO TID 02/24/23 01/23/24 olanzapine 5 mg tablet 2.5 mg PO BEDTIME 07/26/23 01/15/25 aspirin 81 mg tablet,delayed 81 mg PO .THREE TIMES A WEEK 09/02/23 01/15/25 release diclofenac sodium 1 % topical gel 2 - 4 g topical DAILY PRN Pain 09/02/23 01/15/25 (Voltaren Arthritis Pain) Held on 01/15/25. Instructions: Resume on 01/22/25. nitroglycerin 0.4 mg sublingual 0.4 mg sublingual Q5M PRN Chest 09/02/23 01/15/25 tablet (Nitrostat) Pain clopidogrel 75 mg tablet 75 mg PO DAILY 01/15/25 01/15/25 ezetimibe 10 mg tablet 10 mg PO DAILY 01/15/25 01/15/25 famotidine 20 mg tablet 20 mg PO BID 01/15/25 01/15/25 metoprolol succinate 100 mg 50 mg PO DAILY 01/15/25 01/15/25 tablet,extended release 24 hr Previous Rx's ?Medication ?Instructions ?Recorded furosemide 20 mg tablet (Lasix) 20 mg PO DAILY #10 tabs 09/02/23 diclofenac sodium 75 mg 75 mg PO Q12H PRN pain #20 tabs 01/15/25 tablet,delayed release hydrocodone 5 mg-acetaminophen 325 1 tab PO Q6H PRN pain #10 tabs 01/15/25 mg tablet methylprednisolone 4 mg tablets in See Rx Instructions PO .COMPLEX 01/15/25 a dose pack (Medrol (Shun)) #21 ea tizanidine 4 mg tablet 4 mg PO Q6H PRN muscle spasticity 01/15/25 #20 tabs Allergies Allergy/AdvReac Type Severity Reaction Status Date / Time prednisone Allergy Severe K+ dropped Verified 01/15/25 07:45 to 2.5. lisinopril Allergy Unknown Unknown Verified 01/15/25 07:45 steroids Allergy Unknown Uncoded 01/15/25 07:45 Review of Systems Const: Denies: fever(s) or chills Card: Denies: chest pain Resp: Denies: dyspnea GI: Denies: abdominal pain : Denies: dysuria, urinary frequency or urinary urgency Musc: Denies: neck pain or back pain Skin/Breast: Denies: rash PFSH ED PFSH: Medical History Panic disorder Hypertension Obesity Hyperlipidemia Atherosclerosis of coronary artery ST elevation myocardial infarction (STEMI) STEMI (ST elevation myocardial infarction) H/O: GI bleed Surgical History S/P right coronary artery (RCA) stent placement Social History Smoking and tobacco/nicotine status: former use of tobacco/nicotine Alcohol intake: never Substance/Drug Use: never Physical Exam Const: COMMON NORMALS: no acute distress GENERAL APPEARANCE: cooperative and comfortable ORIENTATION/CONSCIOUSNESS: Yes awake, Yes oriented to person, Yes oriented to place and Yes oriented to time HENMT: COMMON NORMALS: normocephalic, atraumatic and hearing grossly normal bilaterally HEAD & SCALP: normocephalic and atraumatic Resp: COMMON NORMALS: normal respiratory effort, No retractions, No use of accessory muscles and clear to auscultation bilaterally AUSCULTATION: clear to auscultation bilaterally Cardio: COMMON NORMALS: regular rate, regular rhythm and No murmurs present (Cardio) RATE: regular rate RHYTHM: regular rhythm Extremity: COMMON NORMALS: normal to inspection, capillary refill normal, no clubbing, cyanosis or edema, no calf tenderness and no pedal edema Neuro: SENSORIUM/ORIENTATION: Yes oriented to person, Yes oriented to place and Yes oriented to time OTHER: Decrease in sharp sensation across the trapezius and shoulder muscle on the left compared to the right. Normal sensation at the forearm and hand across the median and ulnar nerve distributions bilaterally. Skin: COMMON NORMALS: no rashes or lesions noted GENERAL SKIN EXAM: no rashes or lesions noted Course Vital Signs: Vital signs: Vital Signs Temperature 97.7 F 01/15/25 07:36 Pulse Rate 76 01/15/25 09:20 Respiratory Rate 18 01/15/25 08:37 Blood Pressure 129/82 01/15/25 09:20 Pulse Oximetry 96 01/15/25 09:20 MDM - Neck Pain/Injury Medical Decision Making Improved with medications given discharge home. We discussed his previous potential allergy to steroids. He was treated with steroids over 20 years ago for a reaction to a plant dermatitis. After several injections and long course steroids he was found to be hypokalemic and it was related as an allergy. He had no other problems with it. After discussion he decided he felt comfortable put him on a Medrol Dosepak to help with his neck pain he [facility] as well as the MRI of his neck. No radiology studies performed this visit Discharge Plan Discharge Patient Disposition: Home Clinical Impression: Cervical radiculopathy Condition: Stable Prescriptions: New tizanidine 4 mg tablet 4 mg PO Q6H PRN (Reason: muscle spasticity) Qty: 20 0RF Rx Instructions: do not exceed 3 doses per 24 hrs hydrocodone-acetaminophen 5-325 mg tablet 1 tab PO Q6H PRN (Reason: pain) Qty: 10 0RF diclofenac sodium 75 mg tablet,delayed release (DR/EC) 75 mg PO Q12H PRN (Reason: pain) Qty: 20 0RF methylprednisolone [Medrol (Shun)] 4 mg tablets,dose pack See Rx Instructions .ROUTE .COMPLEX Qty: 21 0RF Rx Instructions: orally per package directions Held diclofenac sodium [Voltaren Arthritis Pain] 1 % Gel 2 - 4 g TOPICAL DAILY PRN (Reason: Pain) Hold Instructions: Resume on 01/22/25. Discontinued naproxen sodium [Aleve] 220 mg Tablet 440 mg PO DAILY PRN (Reason: Pain) methocarbamol 750 mg Tablet 750 mg PO Q8H No Action olanzapine 5 mg tablet 2.5 mg PO BEDTIME buspirone 10 mg Tablet 10 mg PO TID aspirin 81 mg tablet,delayed release (DR/EC) 81 mg PO .THREE TIMES A WEEK nitroglycerin [Nitrostat] 0.4 mg Tablet, Sublingual 0.4 mg SUBLINGUAL Q5M PRN (Reason: Chest Pain) Rx Instructions: do not exceed 3 doses per episode Lasix 20 mg tablet 20 mg PO DAILY Qty: 10 0RF metoprolol succinate 100 mg Tablet Extended Release 24 Hr 50 mg PO DAILY famotidine 20 mg Tablet 20 mg PO BID ezetimibe 10 mg Tablet 10 mg PO DAILY clopidogrel 75 mg tablet 75 mg PO DAILY Discharge Orders: Discharge ED (Routine); Ordered 01/15/25 Ordered By: Matthew Irizarry Referrals: Cherie Tracy MD [Primary Care Provider, Family Practice] Patient Instructions: Opioid Safety, Pain Management, Patient Portal & Romulo Instructions Activity Restrictions/Additional Instructions: Thank you for choosing [facility] for your healthcare needs today. It is very important that you follow up as instructed or that you return to the Emergency Department should you have concerns or if your condition changes or worsens in any way. You are seen with complaint of neck pain of pain radiating into the left arm. You are given medications emergency room will discharge home with diclofenac hydrocodone Medrol Dosepak and tizanidine as a muscle relaxer recommend you do not use a topical diclofenac methocarbamol or Naprosyn while using the medicines prescribed today. Follow-up with your primary care doctor and with the MRI that they have scheduled for you as an outpatient. Print Language: Dutch Coding Level of Care Code ED Asbestos Microscopist for Sophia Ordoñez
[2025-01-15] MEDS: methylPREDNISolone sod succ 125 mg/2 mL INJ IVP (07:57)
[2025-01-15] MEDS: orphenadrine 30 mg/mL Inj 2 mL 60 MG IM (08:36)
[2025-01-15 08:37] VITALS: RESP 18; O2SAT 98
[2025-01-15] MEDS: morphine 4 mg/mL SDV 1 mL IVP (08:37)
[2025-01-15 09:20] VITALS: BP 129/82; PULSE 76; O2SAT 96
== END 2025-01-15 09:20 | disposition home or self-care (01) ==
PROVIDERS: Emergency Provider Family Medicine; PCP Family Medicine
DX: M54.12 Radiculopathy, cervical region (principal); Z79.82 Long term (current) use of aspirin; Z79.02 Long term (current) use of antithrombotics/antiplatelets; Z87.891 Personal history of nicotine dependence; E78.5 Hyperlipidemia, unspecified; I10 Essential (primary) hypertension; I25.10 Atherosclerotic heart disease of native coronary artery without angina pectoris
CPT/HCPCS: 96372; 96374; 96375; 99284; J1885; J2270; J2360; J2919

== ENCOUNTER 2025-01-19 15:33 | Outpatient (CLI) | payer OTHER, SELFPAY ==
--- NOTE | 2025-01-19 15:39 | MR_ITS ---
WS: [id number] MRI CERVICAL SPINE NONCONTRAST TECHNIQUE: Sagittal T1, T2 and STIR imaging. Axial T2, gradient, and fiesta imaging. CLINICAL INFORMATION: CERVICAL RADICULOPATHY COMPARISON: MRI 2006 FINDINGS: Straightening of the normal cervical lordosis. ACDF C6-7 is new from previous. Mild disc bulging C4-C5 and C5-C6. This is worse at C4-5 with mild to moderate central canal stenosis. Slight indentation on the cervical cord. C2-C3: Mild LEFT bony foraminal narrowing. Mild facet arthropathy. C3-C4: Mild disc bulging. Moderate facet arthropathy. Moderate RIGHT bony foraminal narrowing. C4-C5: Broad-based central disc osteophyte protrusion with indentation on the cervical cord. Mild central canal stenosis. Moderate facet arthropathy with uncovertebral joint hypertrophy. Severe LEFT and moderate RIGHT bony foraminal narrowing. C5-C6: Disc osteophyte complex with endplate ridging. Severe LEFT and moderate RIGHT bony foraminal narrowing. Moderate facet arthropathy. Uncovertebral joint hypertrophy. Mild central canal stenosis. C6-C7: ACDF. Mild LEFT and no significant RIGHT bony foraminal narrowing. C7-T1: Mild LEFT and no significant RIGHT bony foraminal narrowing. Spinal canal is patent. Visualized brain stem structures: Normal. Prevertebral soft tissues: Normal. MR/MR cervical spin wo con* [id number] IMPRESSION: 1. Central disc osteophyte protrusion C4-5 with indentation on the cervical co rd and mild to moderate central canal stenosis. 2. Moderate to severe bony foraminal narrowing worse at RIGHT C3-4, LEFT C4-5, LEFT C5-6, 3. Postoperative changes ACDF C6-7.
== END 2025-01-19 15:34 | disposition home or self-care (01) ==
LOC: RAD 15:34
PROVIDERS: PCP Family Medicine; Visit Provider Family Medicine
DX: M47.22 Other spondylosis with radiculopathy, cervical region (principal); M48.02 Spinal stenosis, cervical region; M25.78 Osteophyte, vertebrae
CPT/HCPCS: 72141

== ENCOUNTER → 2025-01-21 10:39 | Outpatient (BNVA) | payer OTHER, SELFPAY | PROVIDERS: PCP Family Medicine; Visit Provider Nurse Practitioner Family | DX: I25.10 Atherosclerotic heart disease of native coronary artery without angina pectoris (principal); E78.5 Hyperlipidemia, unspecified; I10 Essential (primary) hypertension; Z79.02 Long term (current) use of antithrombotics/antiplatelets; Z95.5 Presence of coronary angioplasty implant and graft; Z87.891 Personal history of nicotine dependence; I25.2 Old myocardial infarction; M79.89 Other specified soft tissue disorders | CPT/HCPCS: 99214 ==

== ENCOUNTER 2025-02-05 09:09 | Outpatient (CLI) | payer OTHER, SELFPAY ==
--- NOTE | 2025-02-05 09:30 | USR_ITS ---
PROCEDURE INFORMATION: Exam: US Duplex Lower Extremity Veins; Venous Insufficiency Exam date and time: 02/05/2025 9:38 AM Age: 60 years old Clinical indication: Swelling (edema) of limb; Lower extremity, bilateral; Additional info: Lower extremity swelling for venous insufficiency, for venous insufficiency TECHNIQUE: Imaging protocol: Real-time duplex ultrasound of the extremities with 2-D fitzpatrcik scale, color Doppler flow and spectral waveform analysis including responses to compression and other maneuvers (when performed) with image documentation. Limited exam focused on the lower extremity veins for venous insufficiency. COMPARISON: No relevant prior studies available. FINDINGS: Right deep veins: Unremarkable. The common femoral, femoral, proximal profunda femoral and popliteal veins are patent without thrombus. Normal Doppler waveforms. Normal compressibility and/or augmentation response. No evidence of venous reflux. Right superficial veins: Saphenofemoral junction and greater saphenous veins are patent without thrombus. No evidence of venous reflux. Left deep veins: Unremarkable. The common femoral, femoral, proximal profunda femoral and popliteal veins are patent without thrombus. Normal Doppler waveforms. Normal compressibility and/or augmentation response. No evidence of venous reflux. Left superficial veins: Saphenofemoral junction and greater saphenous veins are patent without thrombus. No evidence of venous reflux. Soft tissues: Unremarkable. US/CV obie dup shell [id number] IMPRESSION: No evidence of deep vein thrombosis. No reflux.
== END 2025-02-05 09:10 | disposition home or self-care (01) ==
PROVIDERS: PCP Family Medicine; Visit Provider Nurse Practitioner Family
DX: M79.89 Other specified soft tissue disorders (principal); I87.2 Venous insufficiency (chronic) (peripheral)
CPT/HCPCS: 93970

== ENCOUNTER 2025-02-16 06:08 | Outpatient (CLI) | payer OTHER, SELFPAY ==
--- NOTE | 2025-02-16 06:30 | USCV_ITS ---
Matthew Encinas Age: 60 Gender: M : 1965 Exam Date: 02/16/2025 06:45 Ordering Phys: Kat Moy NP Technologist: ANTELMO [place] [facility] [place]: LE Swelling BP: 136 / 81 HR: 66 Rhythm: Sinus Technical Quality: Adequate MEASUREMENTS (Male / Female) Normal Values 2D ECHO LV Diastolic Diameter PLAX 5.1 cm 4.2 - 5.9 / 3.9 - 5.3 cm IVS Diastolic Thickness 1.2 cm 0.6 - 1.0 / 0.6 - 0.9 cm IVS Systolic Thickness 1.4 cm LVPW Diastolic Thickness 1.5 cm 0.6 - 1.0 / 0.6 - 0.9 cm LVPW Systolic Thickness 1.5 cm LVOT Diameter 1.9 cm LV Ejection Fraction 2D Teich 63.5 % LV Ejection Fraction MOD 4C 64.7 % LV Ejection Fraction MOD 2C 60.6 % LV Ejection Fraction 2C AL 60.6 % LA Diameter 3.5 cm RA Systolic Volume 4C AL 28.2 ml RA Systolic Volume 4C MOD 27.5 ml LA Sys Volume AL 61.0 cm cubed LA Sys Volume Index AL 28.8 cm cubed/m squared Aorta at Sinotubular Diameter 2.6 cm M-MODE LA Ao Ratio MM 1.6 AV Cusp Separation MM 1.4 cm DOPPLER AV Peak Velocity 115.0 cm/s LVOT Peak Velocity 85.0 cm/s AV Area Cont Eq vti 2.0 cm squared AV Area Cont Eq pk 2.0 cm squared MV Peak Velocity 92.0 cm/s MV Area PHT 4.2 cm squared Mitral E to A Ratio 1.0 TV Peak Velocity 224.5 cm/s TR Peak Velocity 243.0 cm/s TR Peak Gradient 23.6 mmHg TV Peak E Velocity 86.0 cm/s PV Peak Velocity 94.0 cm/s FINDINGS Left Ventricle Normal left ventricular size, systolic function and wall thickness, with no regional wall motion abnormalities. Left ventricular ejection fraction is estimated at 60 %. Grade I/IV diastolic dysfunction (abnormal relaxation filling pattern), normal to mildly elevated filling pressures. Right Ventricle The right ventricle is normal in size and function. Right Atrium The right atrium is normal in size. Left Atrium Mildly increased left atrial size. Mitral Valve Mildly thickened mitral valve. No mitral valve stenosis. Moderate mitral valve regurgitation. Aortic Valve Mild aortic valve calcification. No aortic valve stenosis. Trace aortic valve regurgitation. Tricuspid Valve Mild tricuspid valve regurgitation. Pulmonic Valve Structurally normal pulmonic valve without significant stenosis. There is no pulmonic regurgitation. Pericardium Normal pericardium without effusion. Aorta Normal ascending aorta dimension. IVC The inferior vena cava appears normal. CONCLUSIONS Normal left ventricular size, systolic function and wall thickness, with no regional wall motion abnormalities. Left ventricular ejection fraction is estimated at 60 %. Grade I/IV diastolic dysfunction (abnormal relaxation filling pattern), normal to mildly elevated filling pressures. Mildly increased left atrial size. Mildly thickened mitral valve. No mitral valve stenosis. Moderate mitral valve regurgitation. Mild aortic valve calcification. No aortic valve stenosis. Trace aortic valve regurgitation. Mild tricuspid valve regurgitation. There is no pericardial effusion. Right atrial pressure is around 5 mm of mercury. Jeferson Kingsley MD (Electronically Signed) Final Date: 17 February 2025 13:00 S
== END 2025-02-16 06:09 | disposition home or self-care (01) ==
LOC: RAD 06:08
PROVIDERS: PCP Family Medicine; Visit Provider Nurse Practitioner Family
DX: I10 Essential (primary) hypertension (principal); I08.3 Combined rheumatic disorders of mitral, aortic and tricuspid valves; I70.0 Atherosclerosis of aorta
CPT/HCPCS: 93306

== ENCOUNTER 2025-02-22 11:57 | Outpatient (CLI) | payer OTHER, SELFPAY | END 2025-02-22 11:58 | disposition home or self-care (01) | LOC: LAB 12:00 | PROVIDERS: PCP Family Medicine Geriatric Medicine; Visit Provider Nurse Practitioner Family | DX: M54.50 Low back pain, unspecified (principal); M54.2 Cervicalgia; G89.29 Other chronic pain; Z95.5 Presence of coronary angioplasty implant and graft | CPT/HCPCS: 36415; 80053; 83880; 99214 ==

== ENCOUNTER → 2025-03-15 08:27 | Outpatient (BNVA) | payer OTHER, SELFPAY | PROVIDERS: PCP Family Medicine Geriatric Medicine; Visit Provider Nurse Practitioner Family | DX: M79.18 Myalgia, other site (principal); M54.2 Cervicalgia | CPT/HCPCS: 20550; 20553; 99214; J1010; J3490 ==

== ENCOUNTER → 2025-03-29 11:28 | Outpatient (BNVA) | payer OTHER, SELFPAY | PROVIDERS: PCP Family Medicine; Visit Provider Nurse Practitioner Family | DX: M54.2 Cervicalgia (principal) | CPT/HCPCS: 99214 ==

== ENCOUNTER → 2025-04-28 10:32 | Outpatient (BNVA) | payer OTHER, SELFPAY | PROVIDERS: PCP Family Medicine; Visit Provider Nurse Practitioner Family | DX: M54.2 Cervicalgia (principal) | CPT/HCPCS: 99214 ==

== ENCOUNTER → 2025-06-07 14:28 | Outpatient (BNVA) | payer OTHER, SELFPAY | PROVIDERS: PCP Family Medicine; Visit Provider Internal Medicine Cardiovascular Disease | DX: Z01.810 Encounter for preprocedural cardiovascular examination (principal); I25.10 Atherosclerotic heart disease of native coronary artery without angina pectoris; R00.0 Tachycardia, unspecified | CPT/HCPCS: 99214 ==